=== PATIENT | male | born 1940 | race Caucasian/White ===

== ENCOUNTER 2017-03-21 07:02 | Inpatient (IN) ==
--- NOTE | 2017-03-21 07:27 | Emergency Department Note ---
Disposition Clinical Impression: Dizziness, Frequent falls Disposition: Admitted As Inpatient Condition: Good Time of Disposition: 12:53 General Adult HPI - General Chief complaint: ED Neuro Symptoms/Deficit Stated complaint: R shoulder/bilat Leg Pain/Dizzy Time Seen by Provider: 03/21/17 07:13 Source: patient Limitations: no limitations Nursing Notes Reviewed: Yes Vital Signs Reviewed: Yes - History of Present Illness HPI Narrative: One-month history of increasing falls. He states after he stopped chemotherapy 1 month ago he has now been falling more quickly. For falls within the past week. Denies any syncope. States they are all mechanical he gets pains in his lower legs and then falls the floor. Pain Scale: 7 - Related Data Home Medications Medication Instructions Recorded Confirmed Multivitamin [Multi-Day Vitamins] 1 tab PO DAILY 10/22/16 03/21/17 Acetaminophen [Tylenol] 1,000 mg PO Q6HR PRN 02/23/17 03/21/17 Aspirin [Ecotrin] 325 mg PO DAILY PRN 02/23/17 03/21/17 Cholecalciferol (D-3) [Vitamin D] 5,000 unit PO DAILY 02/23/17 03/21/17 Lisinopril [Zestril] 20 mg PO DAILY 02/23/17 03/21/17 Naproxen Sodium [Aleve] 220 mg PO BID PRN 02/23/17 03/21/17 [place]-3/Dha/Epa/Fish Oil [Fish Oil 1,000 mg PO DAILY 02/23/17 03/21/17 1,000 mg Softgel] Allergies Allergy/AdvReac Type Severity Reaction Status Date / Time hydrochlorothiazide Allergy Swelling Verified 03/21/17 07:11 of Lip/Tongue/Throat All systems ED: reviewed and negative except as stated. Constitutional: Denies: fever, chills Cardiovascular: Denies: chest pain, palpitations, syncope Respiratory: Denies: cough, dyspnea Gastrointestinal: Denies: abdominal pain, nausea, vomiting, diarrhea Genitourinary: Denies: urgency, dysuria, frequency Musculoskeletal: Reports: other (Shooting pain down both lower extremities. Pain to the right shoulder with decreased range of motion.). Denies: back pain Integumentary: Denies: rash Neurological: Denies: headache, weakness Past Medical History - Past Medical History Medical history: Reports: cancer, hypertension Surgical history: Reports: herniorrhaphy, other Psychiatric history: Reports: no psych history - Social History Smoking Status: Current every day smoker Alcohol use: Reports: rarely Drug use: Reports: none Physical Exam - General Limitations: no limitations General appearance: alert, in no apparent distress - Head Head exam: atraumatic, normocephalic - Eye Eye exam: Present: normal appearance, PERRL, EOMI, scleral icterus - ENT ENT exam: normal exam, normal oropharynx, mucous membranes moist - Neck Neck exam: Present: normal inspection, full ROM - Chest Chest inspection: Present: normal inspection, symmetric chest wall rise - Respiratory Respiratory exam: Present: normal lung sounds bilaterally. Absent: respiratory distress - Cardiovascular Cardiovascular exam: Present: regular rate, normal rhythm, normal heart sounds - Abdominal Exam Abdominal exam: Present: soft, Non-Tender, normal bowel sounds - Extremities Exam Extremities exam: Present: full ROM (Passively in all extremities. Decreased extension of right shoulder on active extension.), normal capillary refill. Absent: tenderness, pedal edema - Back Exam Back exam: Present: normal inspection, full ROM. Absent: tenderness, paraspinal tenderness - Neurological Exam Neurological exam: Present: alert, oriented X3, other (Patient has an ataxic gait.) - Psychiatric Psychiatric exam: Present: normal affect, normal mood - Skin Skin exam: Present: warm, dry, intact, normal color Course Course Narrative: Well appearing male patient presenting to the emergency department with a 3 week history of increasing falls. 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 He states ever since the cessation of the radiation chemotherapy he has been having an increasing falls. He states that he has had 4 falls in the past week. He states he has not had any syncope or struck his head. He is not on anticoagulation. Patient has an ataxic gait. He becomes dizzy with changes of positions. He also becomes dizzy with movement of his eyes during my exam. He has decreased range of motion actively in his right shoulder. However passively he can move it throughout the full range of motion. He has strong pulses in all 4 extremities. He is mentating appropriately. He is not in distress. CT of patient's head was normal. His creatinine is increased and we are unable to get a CTA of patient's carotids. He does have dizziness whenever his physicians are changed. He also gets dizzy whenever he is attempting to walk. He also gets dizzy with extraocular motions. - Reevaluation(s) Reevaluation #1: Spoke with oncology they also feel that the Pt should be admitted and an MRI be preformed. We will admit patient for new onset ataxic gait as well as dizziness and frequent falls. I am concerned for possible metastasis of his cancer versus cerebellar issues possibly due to radiation. Time: 10:48 - Consultations Consultation #1: Dr Davis except the patient in stable condition. Time: 11:18 Vital Signs Temperature 97.6 F 03/21/17 07:04 Pulse Rate 76 03/21/17 07:04 Respiratory Rate 16 03/21/17 07:04 Blood Pressure 190/100 03/21/17 07:04 O2 Sat by Pulse Oximetry 96 03/21/17 07:04 Temperature 0 F L 03/21/17 12:10 Pulse Rate 72 03/21/17 07:43 Respiratory Rate 18 03/21/17 12:10 Blood Pressure 173/98 03/21/17 12:10 O2 Sat by Pulse Oximetry 96 03/21/17 07:04 Oxygen Delivery Oxygen Delivery Room Air Medical Decision Making - Medical Records Medical records reviewed: Yes I reviewed the patient's medical records. - Lab Data Lab results reviewed: Yes I reviewed the patient's lab results. Result diagrams: 03/21/17 08:29 03/21/17 08:29 Lab Results 03/21/17 03/21/17 Range/Units 08:29 08:29 WBC 7.4 (4.3-11.1) K/mcL RBC 4.40 (4.19-5.50) M/mcL Hgb 13.4 (12.9-16.9) g/dL Hct 39.9 (37.5-50.1) % MCV 90.7 (83.0-100.0) fL MCH 30.5 (28.0-33.3) pg MCHC 33.6 (31.6-35.5) g/dL RDW 12.8 (11.5-14.5) % Plt Count 298 (140-400) K/mcL MPV 8.6 L (9.4-12.4) fL Immature Gran % 0.4 (0-4) % Seg Neutrophils % 66.5 % Lymphocytes % 15.8 % Monocytes % 10.1 % Eosinophils % 6.8 % Basophils % 0.4 % Neutrophils # 4.9 (1.6-8.9) K/mcL Lymphocytes # 1.2 (0.6-4.6) K/mcL Monocytes # 0.8 (0.0-1.3) K/mcL Eosinophils # 0.5 (0.0-0.6) K/mcL Basophils # 0.0 (0.0-0.2) K/mcL Sodium 133 L (136-145) mEq/L Potassium 4.0 (3.5-4.5) mEq/L Chloride 96 L (98-109) mEq/L Carbon Dioxide 25 (19-29) mEq/L BUN 28 H (8-26) mg/dL Creatinine 1.91 H (0.72-1.25) mg/dL Est GFR ( Amer) 42 L (> 60) Est GFR (Non-Af Amer) 35 L (> 60) BUN/Creatinine Ratio 15 (6-26) Glucose 81 (70-99) mg/dL Calculated Osmolality 281 (280-300) Calcium 9.4 (8.6-10.8) mg/dL - Radiology Data Radiology results reviewed: Yes I reviewed the patient's radiology results. Chest X-Ray 03/21/17 07:45 IMPRESSION: No acute pulmonary process. D/ / 03/21/2017 08:14:35 Diamante Murray MD / serge Interpreting Provider: Diamante Murray MD Head CT 03/21/17 07:45 IMPRESSION: 1. No acute intracranial abnormality. 2. Periventricular and subcortical white matter hypodensities are commonly due to chronic small vessel ischemic disease. D/ / Edward Alexander MD / Edward Alexander MD Interpreting Provider: Edward Alexander MD Lumbar Spine X-Ray 03/21/17 07:45 IMPRESSION: Dextroscoliosis. Multilevel degenerative changes of the lumbar spine. No acute finding by plain film imaging. D/ / 03/21/2017 08:26:21 Diamante Murray MD / kennedy Interpreting Provider: Diamante Murray MD Shoulder X-Ray 03/21/17 07:45 IMPRESSION: Moderate AC joint osteoarthritis. No evidence of acute fracture or dislocation. D/ / 03/21/2017 08:12:45 Nestor Fitzpatrick MD / serge Interpreting Provider: Nestor Fitzpatrick MD
--- NOTE | 2017-03-21 07:43 | Emergency Department Note ---
Disposition Clinical Impression: Dizziness, Frequent falls, Ataxia Disposition: Admitted As Inpatient Condition: Fair General Adult HPI - General Chief complaint: ED General Medical Stated complaint: R shoulder/bilat Leg Pain/Dizzy Time Seen by Provider: 03/21/17 07:13 Source: patient Limitations: no limitations Nursing Notes Reviewed: Yes Vital Signs Reviewed: Yes - History of Present Illness Pain Scale: 7 - Related Data Home Medications Medication Instructions Recorded Confirmed Multivitamin [Multi-Day Vitamins] 1 tab PO DAILY 10/22/16 03/21/17 Acetaminophen [Tylenol] 1,000 mg PO Q6HR PRN 02/23/17 03/21/17 Aspirin [Ecotrin] 325 mg PO DAILY PRN 02/23/17 03/21/17 Cholecalciferol (D-3) [Vitamin D] 5,000 unit PO DAILY 02/23/17 03/21/17 Lisinopril [Zestril] 20 mg PO DAILY 02/23/17 03/21/17 Naproxen Sodium [Aleve] 220 mg PO BID PRN 02/23/17 03/21/17 [place]-3/Dha/Epa/Fish Oil [Fish Oil 1,000 mg PO DAILY 02/23/17 03/21/17 1,000 mg Softgel] Allergies Allergy/AdvReac Type Severity Reaction Status Date / Time hydrochlorothiazide Allergy Swelling Verified 03/21/17 07:11 of Lip/Tongue/Throat Past Medical History - Past Medical History Medical history: Reports: cancer, hypertension Surgical history: Reports: herniorrhaphy, other Psychiatric history: Reports: no psych history - Social History Smoking Status: Current every day smoker Alcohol use: Reports: rarely Drug use: Reports: none Physical Exam - General Limitations: no limitations General appearance: alert Course Vital Signs Temperature 97.6 F 03/21/17 07:04 Pulse Rate 76 03/21/17 07:04 Respiratory Rate 16 03/21/17 07:04 Blood Pressure 190/100 03/21/17 07:04 O2 Sat by Pulse Oximetry 96 03/21/17 07:04 Temperature 0 F L 03/21/17 12:10 Pulse Rate 72 03/21/17 07:43 Respiratory Rate 18 03/21/17 12:10 Blood Pressure 173/98 03/21/17 12:10 O2 Sat by Pulse Oximetry 96 03/21/17 07:04 Oxygen Delivery Oxygen Delivery Room Air Medical Decision Making - MDM Narrative Medical decision making narrative: I examined this patient and my medical decision-making was reviewed with the FAN INSTALLER/PA/Advanced Practice Nurse/Resident Physician. I agree with the documented findings, disposition and treatment plan as described except to the extent set forth below. Patient seen on arrival with Dr. Mejia and myself, agree with her evaluation and management plan, I supervised the care of the patient's stay. 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 He is having episodes where he gets up feels dizzy and has falls. He denies striking his head. He is complaining of some sciatic type symptoms down his legs. No change in bowel or bladder habits. On ambulation here he is able to get up and then when he turns he feels dizzy and becomes ataxic. Going to do a workup on him CT has had no snack lab work and then reassess. He may need admission. He follows with the cancer center here. 0742 hrs.: Patient had an EKG performed shows sinus rhythm, rate is 73, QRS is 91, QTC is 419, has Q waves in inferior leads with flipped complexes in leads 3 and aVF but no signs of acute ischemia compared this with an EKG that was done back in 2013 and this changes in the inferior leads were not there. Patient denies any chest pain. 0823 hrs. x-rays are coming back. Chest X-Ray 03/21/17 07:45 IMPRESSION: No acute pulmonary process. D/ / 03/21/2017 08:14:35 Diamante Murray MD / serge Interpreting Provider: Diamante Murray MD Lumbar Spine X-Ray 03/21/17 07:45 IMPRESSION: Dextroscoliosis. Multilevel degenerative changes lumbar spine. No acute finding by plain film imaging. D/ / Diamante Murray MD / Diamante Murray MD Interpreting Provider: Diamante Murray MD Shoulder X-Ray 03/21/17 07:45 IMPRESSION: Moderate AC joint osteoarthritis. No evidence of acute fracture or dislocation. D/ / 03/21/2017 08:12:45 Nestor Fitzpatrick MD / serge Interpreting Provider: Nestor Fitzpatrick MD 0848 hrs: Chest X-Ray 03/21/17 07:45 IMPRESSION: No acute pulmonary process. D/ / 03/21/2017 08:14:35 Diamante Murray MD / serge Interpreting Provider: Diamante Murray MD Lumbar Spine X-Ray 03/21/17 07:45 IMPRESSION: Dextroscoliosis. Multilevel degenerative changes of the lumbar spine. No acute finding by plain film imaging. D/ / 03/21/2017 08:26:21 Diamante Murray MD / [facility] Interpreting Provider: Diamante Murray MD Shoulder X-Ray 03/21/17 07:45 IMPRESSION: Moderate AC joint osteoarthritis. No evidence of acute fracture or dislocation. D/ / 03/21/2017 08:12:45 Nestor Fitzpatrick MD / serge Interpreting Provider: Nestor Fitzpatrick MD 0927 hrs.: Due to elevated creatinine were on a hold off on contrast. He may need carotids imaged in the hospital which could be done with ultrasound also we will ask CT just to do the CT of the head without contrast this time period and then working at Dr. the patient about admission. Family is in agreement with this plan. Chest X-Ray 03/21/17 07:45 IMPRESSION: No acute pulmonary process. D/ / 03/21/2017 08:14:35 Diamante Murray MD / serge Interpreting Provider: Diamante Murray MD Head CT 03/21/17 07:45 IMPRESSION: 1. No acute intracranial abnormality. 2. Periventricular and subcortical white matter hypodensities are commonly due to chronic small vessel ischemic disease. D/ / Edward Alexander MD / Edward Alexander MD Interpreting Provider: Edward Alexander MD Lumbar Spine X-Ray 03/21/17 07:45 IMPRESSION: Dextroscoliosis. Multilevel degenerative changes of the lumbar spine. No acute finding by plain film imaging. D/ / 03/21/2017 08:26:21 Diamante Murray MD / [facility] Interpreting Provider: Diamante Murray MD Shoulder X-Ray 03/21/17 07:45 IMPRESSION: Moderate AC joint osteoarthritis. No evidence of acute fracture or dislocation. D/ / 03/21/2017 08:12:45 Nestor Fitzpatrick MD / serge Interpreting Provider: Nestor Fitzpatrick MD - Lab Data Result diagrams: 03/21/17 08:29 03/21/17 08:29 Lab Results 03/21/17 03/21/17 Range/Units 08:29 08:29 WBC 7.4 (4.3-11.1) K/mcL RBC 4.40 (4.19-5.50) M/mcL Hgb 13.4 (12.9-16.9) g/dL Hct 39.9 (37.5-50.1) % MCV 90.7 (83.0-100.0) fL MCH 30.5 (28.0-33.3) pg MCHC 33.6 (31.6-35.5) g/dL RDW 12.8 (11.5-14.5) % Plt Count 298 (140-400) K/mcL MPV 8.6 L (9.4-12.4) fL Immature Gran % 0.4 (0-4) % Seg Neutrophils % 66.5 % Lymphocytes % 15.8 % Monocytes % 10.1 % Eosinophils % 6.8 % Basophils % 0.4 % Neutrophils # 4.9 (1.6-8.9) K/mcL Lymphocytes # 1.2 (0.6-4.6) K/mcL Monocytes # 0.8 (0.0-1.3) K/mcL Eosinophils # 0.5 (0.0-0.6) K/mcL Basophils # 0.0 (0.0-0.2) K/mcL Sodium 133 L (136-145) mEq/L Potassium 4.0 (3.5-4.5) mEq/L Chloride 96 L (98-109) mEq/L Carbon Dioxide 25 (19-29) mEq/L BUN 28 H (8-26) mg/dL Creatinine 1.91 H (0.72-1.25) mg/dL Est GFR ( Amer) 42 L (> 60) Est GFR (Non-Af Amer) 35 L (> 60) BUN/Creatinine Ratio 15 (6-26) Glucose 81 (70-99) mg/dL Calculated Osmolality 281 (280-300) Calcium 9.4 (8.6-10.8) mg/dL
[2017-03-21 08:34] LABS: Basophils % 0.4 %; Eosinophils # 0.5 K/mcL (0.0-0.6); Eosinophils % 6.8 %; Hematocrit 39.9 % (37.5-50.1); Hemoglobin 13.4 g/dL (12.9-16.9); Immature Granulocytes % 0.4 % (0-4); Lymphocytes # 1.2 K/mcL (0.6-4.6); Lymphocytes % 15.8 %; Mean Corpuscular HGB Conc 33.6 g/dL (31.6-35.5); Mean Corpuscular Hemoglobin 30.5 pg (28.0-33.3); Mean Corpuscular Volume 90.7 fL (83.0-100.0); Mean Platelet Volume 8.6 fL (9.4-12.4); Monocytes # 0.8 K/mcL (0.0-1.3); Monocytes % 10.1 %; Neutrophils # 4.9 K/mcL (1.6-8.9); Platelet Count 298 K/mcL (140-400); Red Cell Distribution Width 12.8 % (11.5-14.5); Segmented Neutrophils % 66.5 %
[2017-03-21 08:45] LABS: Calcium 9.4 mg/dL (8.6-10.8)
[2017-03-21] MEDS ORDERED: 0.9 % Sodium Chloride 500 ML IVC ONE (08:55)
[2017-03-21] MEDS ORDERED: Naloxone 0.4 MG/ML INJ IVP PRN (12:33)
[2017-03-21] MEDS ORDERED: Acetaminophen 325 MG TABLET PO PRN (12:33)
--- NOTE | 2017-03-21 13:16 | Internal Med History&Physical ---
<Adali Aguirre M - Last Filed: 03/21/17 15:26> Date of Encounter: 03/21/17 Time of Encounter: 13:10 Assessment and Plan (1) Ataxia Current visit: Yes Status: Acute Patient reports multiple falls, increasing in frequency. He reports shooting pain down his legs originating in his lower back, which sound like source of his falls. Xray of lumbar spine shows multi-level degenerative changes of lumbar spine, no acute findings. Sciatica may be cause of pain and falls. Will consult oncology to see if they would like to get MRI of lumbar spine in addition to MRI of brain. Consult PT/OT (2) Frequent falls Current visit: Yes Status: Acute (3) Dizziness Current visit: Yes Status: Acute Patient reports dizziness which accompanies shooting pain down his legs. Denies light-headedness or loss of consciousness. Describes the sensation as feeling "off balance". Differentials include vertigo, metastasis. Will plan for MRI with contrast after hydration. Consult to oncology, PT and OT (4) Acute kidney injury superimposed on chronic kidney disease Current visit: Yes Status: Acute Patient has CKD with basline Creatinine about 1.3-1.5. Today's creatinine of 1.91. Will hydrate with fluids overnight. Hold lisinopril and naproxen. Avoid NSAIDS. Recheck chemistry in the morning, prior to proceeding with MRI. (5) Hypertension Current visit: Yes Status: Acute Patient's blood pressures have been running high since arrival, 170s/90-100s. Hold lisinopril for MARIO. Amlodipine 10mg daily. Hydralazine 10mg Q6hr PRN for SBP > 160 or DBP > 100. (6) Smoker Current visit: Yes Status: Acute Patient reports he smokes 1.5 PPD. Discussed smoking consequences and smoking cessation, patient not interested in quitting. Smoking cessation education ordered Nicotine patch offered. (7) Head and neck cancer Current visit: No Status: Acute Patient recently completed chemo/radiation in December for tongue cancer. Concern that his symptoms may be caused by tumor metastasis. Will consult oncology and likely plan for MRI tomorrow. (8) DVT prophylaxis Current visit: Yes Status: Acute Ambulate with assistance anti-embolic stockings heparin 5,000u SQ TID Internal Medicine - H&P: HPI Chief complaint: falls Admitted From: Emergency Dept Plans for Post Hospital Care: Home History of present illness: Mr. Loya is a 76 year old male with hypertension, hyperlipidemia, colon cancer status post chemoradiation, who presented to the emergency department today with complaints of right shoulder pain, bilateral leg pain, and falls. Patient reports this is been going on since completion of his chemotherapy and radiation in December. He reports he has shooting pain down his legs starting in his low back, worse on his left leg, when this happens he also experiences dizziness and he ends up falling. He is unable to articulate whether he experiences the dizziness without the pain, he denies losing consciousness, or feeling lightheaded. He reports he feels off balance. Additionally he has right neck and right shoulder pain that he initially related to his radiation treatments. He is unable to lift his arm above a 45 degree angle. He can passively lift it with his other arm. He reports occasional headaches on and off, chronic cough. He denies any chest pain, palpitations, shortness of breath , nausea, vomiting, abdominal pain or diarrhea. He denies numbness or tingling. 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 X-ray of the lumbar spine which showed dextroscoliosis and multilevel degenerative changes of the lumbar spine. Chest x-ray showed no acute cardiopulmonary process. Head CT showed no acute intracranial abnormality , periventricular and subcortical white matter hypodensities, likely due to chronic small vessel ischemic disease. Labs showed acute kidney injury on top of chronic kidney disease with creatinine of 1.91 up from baseline of 1.39. On exam, patient is alert and oriented in no acute distress. Heart has regular rate and rhythm, lungs are clear bilaterally to auscultation. Past Med Surg Social Fam HX - Past Medical History Medical history: cancer (tongue cancer s/p chemo/radiation), hyperlipidemia, hypertension Psychiatric history: no psych history - Past Surgical History Surgical History: herniorrhaphy, other (traumatic amputation of right toes) - Social History Smoking Status: Current every day smoker Packs per day: 1 1/2 Alcohol use: rarely Drug use: none - Family History Mother Living Status: Age at : 62 Cause of : [place] Hx Family Cardiac Disorders: Yes Father Living Status: Age at : 57 Internal Medicine - H&P: Meds Multivitamin [Multi-Day Vitamins] 1 tab PO DAILY 10/22/16 [History] Acetaminophen [Tylenol] 1,000 mg PO Q6HR PRN 02/23/17 [History] Aspirin [Ecotrin] 325 mg PO DAILY PRN 02/23/17 [History] Cholecalciferol (D-3) [Vitamin D] 5,000 unit PO DAILY 02/23/17 [History] Lisinopril [Zestril] 20 mg PO DAILY 02/23/17 [History] Naproxen Sodium [Aleve] 220 mg PO BID PRN 02/23/17 [History] [place]-3/Dha/Epa/Fish Oil [Fish Oil 1,000 mg Softgel] 1,000 mg PO DAILY 02/23/17 [History] Allergies hydrochlorothiazide Allergy (Verified 03/21/17 07:11) Swelling of Lip/Tongue/Throat All Systems PM: A 10-system review of systems was performed and is negative for pertinent findings except as documented above in the HPI. - Constitutional Constitutional: falls, no chills, no fever(s), no night sweats - EENT Eyes: no change in vision, no discharge, no pain, no photophobia Ears: no ear discharge, no ear pain, no tinnitus Nose, mouth and throat: no dysphagia, no nasal discharge, no neck pain, no sore throat - Cardiovascular Cardiovascular ROS IM: no chest pain, no diaphoresis, no dyspnea, no lightheadedness, no palpitations, no syncope - Respiratory Respiratory: cough, no dyspnea, no wheezing, no excessive phlegm production - Gastrointestinal Gastrointestinal: no abdominal pain, no diarrhea, no hematemesis, no hematochezia, no melena, no nausea, no vomiting - Musculoskeletal Musculoskeletal ROS IM: back pain, limited range of motion (right shoulder), neck pain, no numbness, no tingling - Integumentary Integumentary IM: no rash, no unusual bruising - Neurological Neurological ROS: disequilibrium, dizziness, frequent falls, headache(s), no confusion, no convulsions, no focal weakness, no numbness, no tingling, no tremor(s) - Hematologic/Lymphatic Hematologic/Lymphatic: no easy bruising - Constitutional Vitals: Temp Pulse Resp BP Pulse Ox 0 F L 72 18 173/98 96 03/21/17 12:10 03/21/17 07:43 03/21/17 12:10 03/21/17 12:10 03/21/17 07:04 General appearance: Present: A&O X 3, pleasant, no acute distress - Head Head exam: Present: atraumatic, normocephalic - Eye Eye exam: Present: PERRL, conjuntiva pink, sclera anicteric Pupils: Present: PERRL - Neck Neck exam general surgery: Present: supple, trachea midline. Absent: lymphadenopathy - Respiratory Respiratory exam: Present: CTAB. Absent: accessory muscle use, rales, rhonchi, wheezes - Cardiovascular Cardiovascular exam: Present: RRR, +S1, +S2. Absent: diastolic murmur, gallop, rubs, systolic murmur - GI/Abdominal GI/Abdominal exam: Present: normal bowel sounds, soft, no peritoneal signs. Absent: distended, tenderness - Extremities Exam Extremities exam: Present: warm, radial pulses palpable and symetrical. Absent : calf tenderness, cyanotic, pedal edema - Neurological Exam Neurological exam: Present: CN II-XII intact, oriented X3, no focal deficits. Absent: pronater drift, facial droop, speech deficit - Expanded Neurological Exam Speech: Present: fluid speech Cranial Nerves: EOM's intact PM: Normal, nystagmus PM: Normal, tongue deviation PM: Normal Ataxia: Present: yes Cerebellar function: finger to nose: Normal Upper motor neuron: pronator drift: Normal Neuro motor strength exam: LUE: 5, RUE: 4, LLE: 5, RLE: 5 - Skin Skin exam: Present: dry, intact Internal Med - H&P Results - Labs CBC & Chem 7: 03/21/17 08:29 03/21/17 08:29 Labs: All Lab Results (24 Hours) 03/21/17 03/21/17 Range/Units 08:29 08:29 WBC 7.4 (4.3-11.1) K/mcL RBC 4.40 (4.19-5.50) M/mcL Hgb 13.4 (12.9-16.9) g/dL Hct 39.9 (37.5-50.1) % MCV 90.7 (83.0-100.0) fL MCH 30.5 (28.0-33.3) pg MCHC 33.6 (31.6-35.5) g/dL RDW 12.8 (11.5-14.5) % Plt Count 298 (140-400) K/mcL MPV 8.6 L (9.4-12.4) fL Immature Gran % 0.4 (0-4) % Seg Neutrophils % 66.5 % Lymphocytes % 15.8 % Monocytes % 10.1 % Eosinophils % 6.8 % Basophils % 0.4 % Neutrophils # 4.9 (1.6-8.9) K/mcL Lymphocytes # 1.2 (0.6-4.6) K/mcL Monocytes # 0.8 (0.0-1.3) K/mcL Eosinophils # 0.5 (0.0-0.6) K/mcL Basophils # 0.0 (0.0-0.2) K/mcL Sodium 133 L (136-145) mEq/L Potassium 4.0 (3.5-4.5) mEq/L Chloride 96 L (98-109) mEq/L Carbon Dioxide 25 (19-29) mEq/L BUN 28 H (8-26) mg/dL Creatinine 1.91 H (0.72-1.25) mg/dL Est GFR ( Amer) 42 L (> 60) Est GFR (Non-Af Amer) 35 L (> 60) BUN/Creatinine Ratio 15 (6-26) Glucose 81 (70-99) mg/dL Calculated Osmolality 281 (280-300) Calcium 9.4 (8.6-10.8) mg/dL - Diagnostic Studies Chest x-ray Additional comments: Chest X-Ray 03/21/17 07:45 IMPRESSION: No acute pulmonary process. D/ / 03/21/2017 08:14:35 Diamante Murray MD / serge Interpreting Provider: Diamante Murray MD CT scan - head Additional comments: Head CT 03/21/17 07:45 IMPRESSION: 1. No acute intracranial abnormality. 2. Periventricular and subcortical white matter hypodensities are commonly due to chronic small vessel ischemic disease. D/ / Edward Alexander MD / Edward Alexander MD Interpreting Provider: Edward Alexander MD Other Images Additional comments: Lumbar Spine X-Ray 03/21/17 07:45 IMPRESSION: Dextroscoliosis. Multilevel degenerative changes of the lumbar spine. No acute finding by plain film imaging. D/ / 03/21/2017 08:26:21 Diamante Murray MD / kennedy Interpreting Provider: Diamante Murray MD Shoulder X-Ray 03/21/17 07:45 IMPRESSION: Moderate AC joint osteoarthritis. No evidence of acute fracture or dislocation. D/ / 03/21/2017 08:12:45 Nestor Fitzpatrick MD / serge Interpreting Provider: Nestor Fitzpatrick MD <Lacy Mendez - Last Filed: 03/21/17 17:12> Date of Encounter: 03/21/17 Internal Medicine - H&P: HPI History of present illness: Mr. Loya is a 76 year old male All Systems PM: A 10-system review of systems was performed and is negative for pertinent findings except as documented above in the HPI. - Constitutional Vitals: Temp Pulse Resp BP Pulse Ox 98.1 F 76 16 188/92 92 03/21/17 14:29 03/21/17 16:35 03/21/17 14:29 03/21/17 16:35 03/21/17 14:29 Internal Med - H&P Results - Labs CBC & Chem 7: 03/21/17 08:29 03/21/17 08:29 - Attending Attestation I examined this patient and my medical decision-making was reviewed with the Advanced Practice Nurse. I agree with the documented findings, disposition and treatment plan as described .
[2017-03-21] MEDS: Aspirin Enteric Coated 325 MG Tablet PO SCH (13:42)
[2017-03-21] MEDS: 0.9 % Sodium Chloride 1,000 ML IVC SCH ×2 (13:42→23:53)
[2017-03-21] MEDS: Nicotine 21 MG PATCH.TD24 TD SCH (13:46)
--- NOTE | 2017-03-21 15:26 | Oncology Inp Consult Note ---
Date of Encounter: 03/21/17 Time of Encounter: 15:00 Assessment and Plan (1) Dizziness Status: Acute Assessment and plan: ?? 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 Check orthostatic BP. If negative, MRI of the brain with and without contrast to r/o metastatic disease once kidney functions improves. (2) Low back pain Status: Acute Assessment and plan: Please obtain MRI of the Lumbar Spine when kidney function improves, for further evaluation. Qualifiers: Chronicity: acute Back pain laterality: bilateral Qualified Code(s): M54.5 - Low back pain (3) Cancer of base of tongue Status: Resolved Assessment and plan: s/p treatment with concurrent chemoradiation utilizing cetuximab. PET scan will be obtained as an outpatient to assess response to treatment. - Data of Consult Patient: known to practice within the last 3 years Consult date: 03/21/17 Requesting Physician: Naveen Tompkins MD Primary Care Provider: PCP [place] - Consult Narrative Reason for consult: Dizziness/Base of tongue cancer History of present illness: Mr. 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 Mr. 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 He was treated with concurrent radiation and weekly cetuximab from 11/03/16 - 12/15/16. Concurrent radiation was from 11/10/16-12/29/15. Following his treatment he was was noted to have orthostatic hypotension and so his blood pressure medication (amlodipine) was discontinued. Patient started experiencing back pain with shooting pain down his left legs about a month ago. He also reports dizziness which has led to frequent falls, right shoulder pain and dizziness mainly when he stands up. He denies odynophagia and dysphagia In emergency room a CT scan without contrast revealed no acute intracranial abnormality. Labs showed acute renal failure. Past Med Surg Social Fam HX - Past Medical History Medical history: cancer (tongue cancer s/p chemo/radiation), hyperlipidemia, hypertension Psychiatric history: no psych history - Past Surgical History Surgical History: herniorrhaphy, other (traumatic amputation of right toes) - Social History Smoking Status: Current every day smoker Packs per day: 1 /2 Alcohol use: rarely Drug use: none - Family History Mother Living Status: Age at : 62 Cause of : Heart attack Hx Family Cardiac Disorders: Yes Hx Family Respiratory Disorders: No Hx Family Cancer: Yes (Lung Cancer) Hx Family GI Disorders: No Hx Family Genitourinary Disorders: No Hx Family Endocrine Disorder: No (Diabetes) Hx Family Musculoskeletal Disorders: No Hx Family Neuromuscular Disorders: No Hx Family Neurologic Disorders: No Hx Family HEENT Disorders: No Hx Family Autoimmune Disorders: No Hx Family Reproductive Disorders: No Hx Family Psychosocial Disorders: No Hx Family Medical Disorders: No Father Living Status: Age at : 57 Medications and Allergies Multivitamin [Multi-Day Vitamins] 1 tab PO DAILY 10/22/16 [History] Acetaminophen [Tylenol] 1,000 mg PO Q6HR PRN 02/23/17 [History] Aspirin [Ecotrin] 325 mg PO DAILY PRN 02/23/17 [History] Cholecalciferol (D-3) [Vitamin D] 5,000 unit PO DAILY 02/23/17 [History] Lisinopril [Zestril] 20 mg PO DAILY 02/23/17 [History] Naproxen Sodium [Aleve] 220 mg PO BID PRN 02/23/17 [History] [place]-3/Dha/Epa/Fish Oil [Fish Oil 1,000 mg Softgel] 1,000 mg PO DAILY 02/23/17 [History] Allergies hydrochlorothiazide Allergy (Verified 03/21/17 07:11) Swelling of Lip/Tongue/Throat All systems: reviewed and no additional remarkable complaints except as stated Oncology - Exam - Constitutional Vitals: Temp Pulse Resp BP Pulse Ox 98.1 F 77 16 172/86 92 03/21/17 14:29 03/21/17 14:29 03/21/17 14:29 03/21/17 14:29 03/21/17 14:29 General appearance: no acute distress, no obese, no severe distress - Head Head exam: Present: normal inspection, normocephalic - Eye Eye exam: Present: EOMI, normal appearance - Neck Neck exam: Present: normal inspection - Respiratory Respiratory exam: Present: CTAB - Cardiovascular Cardiovascular exam: Present: RRR, +S1, +S2 - GI/Abdominal GI/Abdominal exam: Present: soft. Absent: organomegaly, pulsatile mass, rebound , rigid, tenderness - Extremities Exam Extremities exam: Present: normal inspection. Absent: pedal edema Consult Discharge Plan - Plan Referrals: [facility] [Outside] - 03/31/17 12:30 pm
[2017-03-21] MEDS: *HR* Heparin 5,000 UNIT/ML VIAL SQ SCH ×2 (18:19→21:31)
[2017-03-21] MEDS: traMADol 50 MG TABLET PO PRN (18:19)
[2017-03-21] MEDS: amLODIPine 5 MG TABLET PO SCH (18:20)
--- NOTE | 2017-03-21 19:39 | Electrocardiograph Report ---
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
[2017-03-22 04:26] LABS: Basophils % 0.4 %; Eosinophils # 0.5 K/mcL (0.0-0.6); Eosinophils % 6.5 %; Hematocrit 37.8 % (37.5-50.1); Immature Granulocytes % 0.8 % (0-4); Immature Platelets 2.2 % (1.1-6.1); Lymphocytes # 1.3 K/mcL (0.6-4.6); Lymphocytes % 17.5 %; Mean Corpuscular HGB Conc 34.4 g/dL (31.6-35.5); Mean Corpuscular Hemoglobin 31.1 pg (28.0-33.3); Mean Corpuscular Volume 90.4 fL (83.0-100.0); Mean Platelet Volume 8.8 fL (9.4-12.4); Monocytes # 0.6 K/mcL (0.0-1.3); Monocytes % 8.2 %; Neutrophils # 4.8 K/mcL (1.6-8.9); Platelet Count 328 K/mcL (140-400); Red Blood Count 4.18 M/mcL (4.19-5.50); Red Cell Distribution Width 13.1 % (11.5-14.5); Segmented Neutrophils % 66.6 %
[2017-03-22 04:43] LABS: Potassium 4.1 mEq/L (3.5-4.5)
[2017-03-22] MEDS: *HR* Heparin 5,000 UNIT/ML VIAL SQ SCH ×3 (05:21→21:23)
[2017-03-22] MEDS: traMADol 50 MG TABLET PO PRN (07:44)
[2017-03-22] MEDS: Aspirin Enteric Coated 325 MG Tablet PO SCH (09:12)
[2017-03-22] MEDS: amLODIPine 5 MG TABLET PO SCH (09:12)
[2017-03-22] MEDS: Nicotine 21 MG PATCH.TD24 TD SCH (09:13)
[2017-03-22] MEDS: 0.9 % Sodium Chloride 1,000 ML IVC SCH ×2 (10:08→19:42)
[2017-03-22] MEDS ORDERED: Ondansetron 4 MG/2 ML VIAL IVP PRN (12:37)
--- NOTE | 2017-03-22 13:18 | Oncology Inp Progress Note ---
Date of Encounter: 03/22/17 Time of Encounter: 16:00 (1) Dizziness Current Visit: Yes Status: Acute Assessment and plan: Awaiting MRI of the brain with and without contrast to r/o metastatic disease once kidney functions improves. (2) Low back pain Current Visit: Yes Status: Acute Assessment and plan: Awaiting MRI of the Lumbar Spine when kidney function improves, for further evaluation. Qualifiers: Chronicity: acute Back pain laterality: bilateral Qualified Code(s): M54.5 - Low back pain (3) Cancer of base of tongue Current Visit: No Status: Resolved Assessment and plan: s/p treatment with concurrent chemoradiation utilizing cetuximab. PET scan will be obtained as an outpatient to assess response to treatment. Oncology: Subj Interval history: No acute event overnight. - Constitutional Vitals: Vital Signs Temp Pulse Pulse Pulse Pulse Resp BP 03/22/17 11:06 98.4 F 66 16 148/77 03/22/17 08:47 97.5 F L 87 18 177/94 03/22/17 07:26 97.4 F L 76 18 192/98 03/22/17 04:50 97.9 F 81 16 171/85 03/21/17 23:32 98.4 F 77 14 141/69 03/21/17 19:58 98.0 F 71 16 152/71 03/21/17 16:35 76 82 91 03/21/17 14:29 98.1 F 77 16 172/86 BP BP BP Pulse Ox 03/22/17 11:06 97 03/22/17 08:47 94 03/22/17 07:26 95 03/22/17 04:50 91 03/21/17 23:32 92 03/21/17 19:58 94 03/21/17 16:35 188/92 169/94 167/94 03/21/17 14:29 92 Intake and Output 03/21/17 03/22/17 03/22/17 23:59 07:59 15:59 Intake Total 1120 / 1120 784 / 784 706 / 706 Output Total 250 / 250 1300 / 1300 300 / 300 Balance 870 / 870 -516 / -516 406 / 406 Intake: IV Fluids 1000 / 1000 784 / 784 216 / 216 0.9 % Sodium Chloride 1, 1000 / 1000 784 / 784 216 / 216 000 ML @ 100 mls/hr IVC . Q10H MURALI Rx#:[id number] Oral 120 / 120 0 / 0 490 / 490 Output: Urine 250 / 250 1300 / 1300 300 / 300 Other: Meal Dinner Breakfast Percent of Meal Consumed 100% 5% # Voids 1 Weight 67.132 kg Patient Weight 03/22/17 23:59 Weight 67.132 kg General appearance: cooperative, no acute distress - Head Head exam: Present: normal inspection, normocephalic - Eye Eye exam: Present: normal appearance - Respiratory Respiratory exam: Present: CTAB - Cardiovascular Cardiovascular exam: Present: RRR, +S1, +S2 - Extremities Exam Extremities exam: Absent: pedal edema Oncology: Obj Data - Labs CBC & Chem 7: 03/22/17 04:15 03/23/17 05:08 Labs: Laboratory Results - last 24 hr 03/22/17 03/22/17 04:15 04:15 WBC 7.2 RBC 4.18 L Hgb 13.0 Hct 37.8 MCV 90.4 MCH 31.1 MCHC 34.4 RDW 13.1 Plt Count 328 MPV 8.8 L Immature Gran % 0.8 Seg Neutrophils % 66.6 Lymphocytes % 17.5 Monocytes % 8.2 Eosinophils % 6.5 Basophils % 0.4 Neutrophils # 4.8 Lymphocytes # 1.3 Monocytes # 0.6 Eosinophils # 0.5 Basophils # 0.0 Immature Plt Fraction 2.2 Sodium 133 L Potassium 4.1 Chloride 102 Carbon Dioxide 23 BUN 24 Creatinine 1.77 H Est GFR ( Amer) 46 L Est GFR (Non-Af Amer) 38 L BUN/Creatinine Ratio 14 Glucose 84 Calculated Osmolality 279 L Calcium 9.0 Consult Discharge Plan - Plan Referrals: [facility] [Outside] - 03/31/17 12:30 pm
[2017-03-22] MEDS ORDERED: *HR* Morphine 2 MG/ML SYRINGE IVP PRN (13:48)
--- NOTE | 2017-03-22 13:51 | Internal Med Progress Note ---
Date of Encounter: 03/22/17 Time of Encounter: 13:49 - Assessment and plan (1) Acute kidney injury superimposed on chronic kidney disease Current Visit: Yes Status: Acute Assessment and plan: midly improved CKD 3 hold aleeve and ibuprofen continue IVF (2) Head and neck cancer Current Visit: No Status: Acute Assessment and plan: squamous cell carcinoma of the tongue s/p radiation and cetuximab followed by oncology needs MRI brain and lumbar spine when renal function improves family worried for opioid withrdawal, try morphine PRN (3) Orthostatic hypotension Current Visit: Yes Status: Acute Assessment and plan: likely due to dehydration BP dropped from 188 laying down to 167 standing up and sitting IVF fall precautions (4) Dizziness Current Visit: Yes Status: Acute Assessment and plan: right hand weakness, consider possible ischemic CVA MRI when possible continue ASA consider primidone for essential tremors (5) Frequent falls Current Visit: Yes Status: Acute (6) Smoker Current Visit: Yes Status: Acute (7) Hypertension Current Visit: Yes Status: Acute Assessment and plan: consider hydralazine Qualifiers: Hypertension type: essential hypertension Qualified Code(s): I10 - Essential (primary) hypertension - Subjective Interval history: complains of shaking in his hands, right arm weakness in the last month, severe weakness, no CP or SOB - Constitutional Vitals: Temp Pulse Resp BP Pulse Ox 98.4 F 66 16 148/77 97 03/22/17 11:06 03/22/17 11:06 03/22/17 11:06 03/22/17 11:06 03/22/17 11:06 General appearance: Present: A&O X 3, pleasant, no acute distress, underweight - Head Head exam: Present: atraumatic, normocephalic - Eye Eye exam: Present: PERRL, conjuntiva pink, sclera anicteric Pupils: Present: PERRL - Neck Neck exam general surgery: Present: supple, trachea midline. Absent: lymphadenopathy - Respiratory Respiratory exam: Present: CTAB. Absent: accessory muscle use, rales, rhonchi, wheezes - Cardiovascular Cardiovascular exam: Present: RRR, +S1, +S2. Absent: diastolic murmur, gallop, rubs, systolic murmur - GI/Abdominal GI/Abdominal exam: Present: normal bowel sounds, soft, no peritoneal signs. Absent: distended, tenderness - Extremities Exam Extremities exam: Present: warm, radial pulses palpable and symetrical. Absent : calf tenderness, cyanotic, pedal edema - Neurological Exam Neurological exam: Present: CN II-XII intact, oriented X3, no focal deficits. Absent: pronater drift, facial droop, speech deficit Additional comments: essential tremors, right upper extremity weakness 3/5 essential tremors - Skin Skin exam: Present: dry, intact Internal Medicine: Result - Labs CBC & Chem 7: 03/22/17 04:15 03/22/17 04:15 Labs: Short CBC 03/22/17 Range/Units 04:15 WBC 7.2 (4.3-11.1) K/mcL Hgb 13.0 (12.9-16.9) g/dL Hct 37.8 (37.5-50.1) % Plt Count 328 (140-400) K/mcL Neutrophils # 4.8 (1.6-8.9) K/mcL BMP 03/22/17 04:15 Sodium 133 L Potassium 4.1 Chloride 102 Carbon Dioxide 23 BUN 24 Creatinine 1.77 H Glucose 84 Calcium 9.0 - VTE Documentation of Mechanical Device: Graduated compression elastic hosiery Consult Discharge Plan - Plan Referrals: [facility] [Outside] - 03/31/17 12:30 pm
[2017-03-22 14:49] LABS: Thyroid Stimulating Hormone 0.783 mcIU/mL (0.350-4.840)
[2017-03-22] MEDS: Mirtazapine 15 MG TABLET PO SCH (21:22)
[2017-03-23] MEDS: *HR* Heparin 5,000 UNIT/ML VIAL SQ SCH ×3 (05:12→22:08)
[2017-03-23] MEDS: 0.9 % Sodium Chloride 1,000 ML IVC SCH ×3 (05:13→19:20)
[2017-03-23 05:34] LABS: Calcium 9.3 mg/dL (8.6-10.8); Potassium 3.8 mEq/L (3.5-4.5)
[2017-03-23] MEDS: amLODIPine 5 MG TABLET PO SCH (07:18)
[2017-03-23] MEDS: Aspirin Enteric Coated 325 MG Tablet PO SCH (07:19)
[2017-03-23] MEDS: Nicotine 21 MG PATCH.TD24 TD SCH (07:19)
--- NOTE | 2017-03-23 10:06 | Internal Med Progress Note ---
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 followed by oncology needs MRI brain and lumbar spine (ordered) family worried for opioid withrdawal, try morphine PRN (3) Orthostatic hypotension Current Visit: Yes Status: Acute Assessment and plan: likely due to dehydration , resolved BP dropped from 188 laying down to 167 standing up and sitting upon admission but not noticed on 03/22/17 IVF fall precautions (4) Dizziness Current Visit: Yes Status: Acute Assessment and plan: right hand weakness, consider possible ischemic CVA MRI of the brain and lumbar spine with and without contrast per Oncology Dr Garcia from radiology agreed with the tests continue ASA consider primidone for essential tremors (5) Frequent falls Current Visit: Yes Status: Acute (6) Smoker Current Visit: Yes Status: Acute (7) Hypertension Current Visit: Yes Status: Acute Assessment and plan: consider hydralazine Qualifiers: Hypertension type: essential hypertension Qualified Code(s): I10 - Essential (primary) hypertension - Subjective Interval history: complains of shaking in his hands, right arm weakness in the last month, severe weakness, no CP or SOB, also complains of left lower extremity numbness - Constitutional Vitals: Temp Pulse Resp BP Pulse Ox 98.5 F 88 18 165/78 90 03/23/17 06:59 03/23/17 06:59 03/23/17 06:59 03/23/17 06:59 03/23/17 07:29 General appearance: Present: A&O X 3, pleasant, no acute distress, underweight - Head Head exam: Present: atraumatic, normocephalic - Eye Eye exam: Present: PERRL, conjuntiva pink, sclera anicteric Pupils: Present: PERRL - Neck Neck exam general surgery: Present: supple, trachea midline. Absent: lymphadenopathy - Respiratory Respiratory exam: Present: CTAB. Absent: accessory muscle use, rales, rhonchi, wheezes - Cardiovascular Cardiovascular exam: Present: RRR, +S1, +S2. Absent: diastolic murmur, gallop, rubs, systolic murmur - GI/Abdominal GI/Abdominal exam: Present: normal bowel sounds, soft, no peritoneal signs. Absent: distended, tenderness - Extremities Exam Extremities exam: Present: warm, radial pulses palpable and symetrical. Absent : calf tenderness, cyanotic, pedal edema Additional comments: essential tremors in both hands, left lower extremity numbness right upper extremity weakness 3/5 - Neurological Exam Neurological exam: Present: CN II-XII intact, oriented X3, no focal deficits. Absent: pronater drift, facial droop, speech deficit - Skin Skin exam: Present: dry. Absent: intact (small pippa over the dorsum of the right hand) Internal Medicine: Result - Labs CBC & Chem 7: 03/22/17 04:15 03/23/17 05:08 Labs: [facility] 03/23/17 05:08 Sodium 134 L Potassium 3.8 Chloride 102 Carbon Dioxide 21 BUN 24 Creatinine 1.68 H Glucose 86 Calcium 9.3 - VTE Documentation of Mechanical Device: Graduated compression elastic hosiery Consult Discharge Plan - Plan Referrals: [facility] [Outside] - 03/31/17 12:30 pm
--- NOTE | 2017-03-23 16:19 | Oncology Inp Progress Note ---
Date of Encounter: 03/23/17 Time of Encounter: 19:00 (1) Dizziness Current Visit: Yes Status: Acute Assessment and plan: MRI of the brain with and without contrast to r/o metastatic disease was obtained today and result is pending. (2) Low back pain Current Visit: Yes Status: Acute Assessment and plan: MRI of the Lumbar Spine has been obtained and result is pending. Qualifiers: Chronicity: acute Back pain laterality: bilateral Sciatica laterality: sciatica laterality unspecified Qualified Code(s): M54.40 - Lumbago with sciatica, unspecified side (3) Cancer of base of tongue Current Visit: No Status: Resolved Assessment and plan: s/p treatment with concurrent chemoradiation utilizing cetuximab. PET scan will be obtained as an outpatient to assess response to treatment. Oncology: Subj Interval history: Patient reports that he does not feel better. There was however no acute event overnight. - Constitutional Vitals: Vital Signs Temp Pulse Resp BP Pulse Ox 03/23/17 14:23 98.6 F 87 18 163/90 91 03/23/17 10:43 98.5 F 95 18 153/81 94 03/23/17 07:29 90 03/23/17 06:59 98.5 F 88 18 165/78 91 03/23/17 05:10 98.0 F 99 20 164/87 91 03/23/17 03:54 98.5 F 84 18 158/85 92 03/23/17 02:48 81 18 154/78 92 03/23/17 01:30 97.8 F 87 18 182/87 95 03/22/17 23:47 98.6 F 78 14 158/82 92 03/22/17 19:24 98.1 F 83 14 151/65 92 Intake and Output 03/23/17 03/23/17 03/23/17 07:59 15:59 23:59 Intake Total 1500 / 1500 820 / 820 Output Total 500 / 500 400 / 400 Balance 1000 / 1000 420 / 420 Intake: IV Fluids 1000 / 1000 0.9 % Sodium Chloride 1, 1000 / 1000 000 ML @ 100 mls/hr IVC . Q10H [facility] Rx#:[id number] Oral 500 / 500 820 / 820 Output: Urine 500 / 500 400 / 400 Other: Meal Breakfast Percent of Meal Consumed 0% Weight 68.1 kg Patient Weight 03/23/17 23:59 Weight 68.1 kg General appearance: average body habitus, no no acute distress, no obese, no severe distress - Head Head exam: Present: normal inspection, normocephalic - Eye Eye exam: Present: EOMI, normal appearance - ENT ENT exam: Present: normal exam, normal external ear exam - Neck Neck exam: Present: normal inspection. Absent: lymphadenopathy - Respiratory Respiratory exam: Present: CTAB - Cardiovascular Cardiovascular exam: Present: RRR, +S1, +S2 - GI/Abdominal GI/Abdominal exam: Present: soft. Absent: rebound, rigid, tenderness - Extremities Exam Extremities exam: Present: normal inspection. Absent: pedal edema - Neurological Exam Neurological exam: Present: alert, oriented X3 Oncology: Obj Data - Labs CBC & Chem 7: 03/22/17 04:15 03/24/17 04:56 Labs: Laboratory Results - last 24 hr 03/23/17 05:08 Sodium 134 L Potassium 3.8 Chloride 102 Carbon Dioxide 21 BUN 24 Creatinine 1.68 H Est GFR ( Amer) 49 L Est GFR (Non-Af Amer) 40 L BUN/Creatinine Ratio 14 Glucose 86 Calculated Osmolality 281 Calcium 9.3 Consult Discharge Plan - Plan Additional Instructions: Follow with primary care physician within 7 days. Avoid naproxen and ibuprofen. Continue Physical therapy as outpatient. Follow up with orthopedic surgery within 2 weeks. Fall precautions Referrals: [facility] [Outside] - 03/31/17 12:30 pm Prescriptions: Oxycodone HCl [Oxaydo] 5 mg PO TID PRN #20 tablet.orl PRN Reason: pain
[2017-03-23] MEDS: traMADol 50 MG TABLET PO PRN (17:03)
[2017-03-23] MEDS: Mirtazapine 15 MG TABLET PO SCH (22:11)
[2017-03-24] MEDS: *HR* Heparin 5,000 UNIT/ML VIAL SQ SCH (05:40)
[2017-03-24 05:53] LABS: Potassium 3.7 mEq/L (3.5-4.5)
[2017-03-24] MEDS: 0.9 % Sodium Chloride 1,000 ML IVC SCH (07:01)
[2017-03-24] MEDS: Aspirin Enteric Coated 325 MG Tablet PO SCH (08:30)
[2017-03-24] MEDS: Nicotine 21 MG PATCH.TD24 TD SCH ×2 (08:30→08:32)
[2017-03-24] MEDS: amLODIPine 5 MG TABLET PO SCH (08:30)
--- NOTE | 2017-03-24 09:06 | Discharge Summary ---
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 (3) Orthostatic hypotension Priority: Secondary Status: Acute Comments: likely due to dehydration , resolved BP dropped from 188 laying down to 167 standing up and sitting upon admission but not noticed on 03/22/17 (4) Dizziness Priority: Secondary Status: Acute (5) Frequent falls Priority: Secondary Status: Acute (6) Smoker Priority: Secondary Status: Acute (7) Hypertension Priority: Secondary Status: Acute Qualifiers: Hypertension type: essential hypertension Qualified Code(s): I10 - Essential (primary) hypertension (8) Spinal stenosis at L4-L5 level Priority: Secondary Status: Acute Comments: Multilevel spinal stenosis. 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 Also L5-S1 left paracentral disc extrusion compressing the descending left S1 nerve root. - Discharge Medications Prescriptions: Oxycodone HCl [Oxaydo] 5 mg PO TID PRN #20 tablet.orl PRN Reason: pain Home Medications: Multivitamin [Multi-Day Vitamins] 1 tab PO DAILY 10/22/16 [History] Acetaminophen [Tylenol] 1,000 mg PO Q6HR PRN 02/23/17 [History] Aspirin [Ecotrin] 325 mg PO DAILY PRN 02/23/17 [History] Cholecalciferol (D-3) [Vitamin D] 5,000 unit PO DAILY 02/23/17 [History] Lisinopril [Zestril] 20 mg PO DAILY 02/23/17 [History] Naproxen Sodium [Aleve] 220 mg PO BID PRN 02/23/17 [History] [place]-3/Dha/Epa/Fish Oil [Fish Oil 1,000 mg Softgel] 1,000 mg PO DAILY 02/23/17 [History] Oxycodone HCl [Oxaydo] 5 mg PO TID PRN #20 tablet.orl 03/24/17 [Rx] Allergies/Adverse Reactions: Allergies hydrochlorothiazide Allergy (Verified 03/21/17 07:11) Swelling of Lip/Tongue/Throat Procedures/tests Complete & Pending: Procedures Performed prior 72 hours Category Date Time Status MR head/brain wo/w con [MR] Routine MRI 03/23/17 09:50 Completed MR lumbar spine wo/w con [MR] Routine MRI 03/23/17 09:50 Draft Date of admission: 03/22/17 18:01 Primary care physician: PCP DC - Patient Status Disposition: Home Health Service Condition: Fair Overall status at discharge: patient is progressing back to baseline - Discharge Instructions Follow Up With: [facility] [Outside] - 03/31/17 12:30 pm Additional Instructions: Follow with primary care physician within 7 days. Avoid naproxen and ibuprofen. Continue Physical therapy as outpatient. Follow up with orthopedic surgery within 2 weeks. Fall precautions - Diet and Activity Activity: increase activity as tolerated Diet: low fat, low cholesterol Hospital course: Mr. 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 Patient reported this is been going on since completion of his chemotherapy and radiation in December. He reported he has shooting pain down his legs starting in his low back, worse on his left leg, when this happens he also experiences dizziness and he ends up falling. Additionally he had right neck and right shoulder pain that he initially related to his radiation treatments. He is unable to lift his arm above a 45 degree angle. He can passively lift it with his other arm. He reported occasional headaches on and off, chronic cough. Evaluation in the emergency room included shoulder x-ray which showed moderate joint osteoarthritis no evidence of fracture or dislocation. X-ray of the lumbar spine which showed dextroscoliosis and multilevel degenerative changes of the lumbar spine. Chest x-ray showed no acute cardiopulmonary process. Head CT showed no acute intracranial abnormality, periventricular and subcortical white matter hypodensities, likely due to chronic small vessel ischemic disease. Labs showed acute kidney injury on top of chronic kidney disease with creatinine of 1.91. Creatinin improved with IVF and by hoding lisinopril. He was recommended to avoid naproxen and ibuprofen in high doses. Oncology was consulted. MRI of the brain and lumbar spine did not show metastasis. Multiple levels of spinal stenosis and foraminal stenosis were observed. He was recommended to follow up with an orthopedic surgeon. Time spent discussing smoking cessation with patient: 3 to 10 minutes - Time Spent with Patient Total time spent providing and/or coordinating discharge services: Greater than 30 minutes (40 min) - Constitutional Vitals: Temp Pulse Resp BP Pulse Ox 98.9 F 89 18 188/90 93 03/24/17 06:47 03/24/17 06:47 03/24/17 06:47 03/24/17 08:12 03/24/17 06:47 General appearance: Present: A&O X 3, pleasant, no acute distress, underweight - Head Head exam: Present: atraumatic, normocephalic - Eye Eye exam: Present: PERRL, conjuntiva pink, sclera anicteric Pupils: Present: PERRL - Neck Neck exam general surgery: Present: supple, trachea midline. Absent: lymphadenopathy - Respiratory Respiratory exam: Present: CTAB. Absent: accessory muscle use, rales, rhonchi, wheezes - Cardiovascular Cardiovascular exam: Present: RRR, +S1, +S2. Absent: diastolic murmur, gallop, rubs, systolic murmur - GI/Abdominal GI/Abdominal exam: Present: normal bowel sounds, soft, no peritoneal signs. Absent: distended, tenderness - Extremities Exam Extremities exam: Present: warm, radial pulses palpable and symetrical. Absent : calf tenderness, cyanotic, pedal edema - Neurological Exam Neurological exam: Present: CN II-XII intact, oriented X3, no focal deficits. Absent: pronater drift, facial droop, speech deficit Additional comments: right upper extremity weakness 3/5. - Skin Skin exam: Present: dry, intact - VTE Documentation of Mechanical Device: Graduated compression elastic hosiery
--- NOTE | 2017-03-24 09:20 | Physician Discharge Referral ---
Home Health/Hosp Referral Info Transfer to: Home Health Provider in Charge Post Discharge: PCP - Diagnosis (1) Acute kidney injury superimposed on chronic kidney disease Status: Acute (2) Head and neck cancer Status: Acute (3) Orthostatic hypotension Status: Acute (4) Dizziness Status: Acute (5) Frequent falls Status: Acute (6) Smoker Status: Acute (7) Hypertension Status: Acute (8) Spinal stenosis at L4-L5 level Status: Acute - Respiratory Orders Smoking Cessation: Smoking cessation has been advised. For more information, call the [employer] Tobacco Quit Line at 9-325-ZIHQ-NOW. - Diet/Nutrition Diet/Nutrition Orders: No Added Salt (CATHERINE) - Services Needed Following services are medically necessary services: Home Health Aide, Physical Therapy Home Care Orders: Follow with primary care physician within 7 days. Avoid naproxen and ibuprofen. Continue Physical therapy as outpatient. Follow up with orthopedic surgery within 2 weeks. Fall precautions - Transfer Medications Prescriptions: Oxycodone HCl [Oxaydo] 5 mg PO TID PRN #20 tablet.orl PRN Reason: pain Home Medications: Multivitamin [Multi-Day Vitamins] 1 tab PO DAILY 10/22/16 [History] Acetaminophen [Tylenol] 1,000 mg PO Q6HR PRN 02/23/17 [History] Aspirin [Ecotrin] 325 mg PO DAILY PRN 02/23/17 [History] Cholecalciferol (D-3) [Vitamin D] 5,000 unit PO DAILY 02/23/17 [History] Lisinopril [Zestril] 20 mg PO DAILY 02/23/17 [History] Naproxen Sodium [Aleve] 220 mg PO BID PRN 02/23/17 [History] [place]-3/Dha/Epa/Fish Oil [Fish Oil 1,000 mg Softgel] 1,000 mg PO DAILY 02/23/17 [History] Oxycodone HCl [Oxaydo] 5 mg PO TID PRN #20 tablet.orl 03/24/17 [Rx] Allergies/Adverse Reactions: Allergies hydrochlorothiazide Allergy (Verified 03/21/17 07:11) Swelling of Lip/Tongue/Throat Certification: Further, I certify that my clinical findings support that this patient is homebound (i.e. absences from home require considerable and taxing effort and are for medical reasons or [employer] services or infrequently or short duration when for other reasons) because: Homebound Reason: Patient requires assistance of a person or device to safely leave home Attestation: My signature below is to certify that this patient is under my care and that I, or nurse practitioner, or a physician's clinical nursing assistant working with me, has a face-to -face encounter with this patient.
[2017-03-24 12:24] VITALS: BP 165/85
== END 2017-03-24 12:23 | disposition home health service (06) | DRG 684 ==
LOC: 3ANU 07:02 → EMEROO 07:02 → SUATTDRO 11:30 → 3ANU 12:15
PROVIDERS: ADMIT Internal Medicine; ATTEND Internal Medicine

== ENCOUNTER 2017-04-19 06:29 | Observation (INO) ==
[2017-04-19] MEDS ORDERED: Nitroglycerin 0.4 MG TAB.SUBL SL ONE (06:37)
[2017-04-19] MEDS ORDERED: Aspirin 81 MG TAB.CHEW PO ONE (06:37)
[2017-04-19 06:55] LABS: Basophils % 0.3 %; Eosinophils # 0.5 K/mcL (0.0-0.6); Eosinophils % 4.3 %; Hematocrit 38.5 % (37.5-50.1); Hemoglobin 13.3 g/dL (12.9-16.9); Immature Granulocytes % 0.5 % (0-4); Lymphocytes # 1.2 K/mcL (0.6-4.6); Lymphocytes % 10.4 %; Mean Corpuscular HGB Conc 34.5 g/dL (31.6-35.5); Mean Corpuscular Hemoglobin 30.4 pg (28.0-33.3); Mean Corpuscular Volume 87.9 fL (83.0-100.0); Mean Platelet Volume 8.7 fL (9.4-12.4); Monocytes # 0.9 K/mcL (0.0-1.3); Monocytes % 7.3 %; Platelet Count 340 K/mcL (140-400); Red Blood Count 4.38 M/mcL (4.19-5.50); Red Cell Distribution Width 12.4 % (11.5-14.5); Segmented Neutrophils % 77.2 %
[2017-04-19 07:01] LABS: Prothrombin Time 10.3 Seconds (9.4-12.1)
[2017-04-19 07:03] LABS: Activated Partial Thrombo Time 34.3 Seconds (26.0-36.0)
--- NOTE | 2017-04-19 07:14 | Emergency Department Note ---
START Narrative - START START: Patient is a 76-year-old white male with a history of hypertension and high cholesterol presents to the emergency department by EMS this morning complaining of substernal chest pain that woke him from sleep at approximately 3 :30 this morning. Patient denies any actual shortness of breath with this but states that the pain seems worse with deep breathing. Patient denies any diaphoresis, no abdominal pain flank pain or back pain. Patient states the pain radiates through to his bilateral paraspinal neck area. Patient denies any lightheadedness or near syncope at home prior to arrival. Patient on arrival is complaining that he has had significant improvement in his symptoms and is currently not having any pain in his anterior chest and he just feels some residual 1 out of 10 achiness that he describes in the bilateral rhomboid areas of his posterior paraspinal neck. Patient was given aspirin on arrival to the ED. Vital signs are stable on arrival. EKG was brought to me and signed that 6:45 AM that showed questionable ST elevation in the inferior leads in leads 2 and aVF which are 1/2 mm in elevation. These appear unchanged to prior EKG that was obtained on 03/21/2017. Patient's exam overall shows HEENT unremarkable with moist membranes, neck is supple with no JVD. Heart is regular rate and rhythm with no murmurs auscultated. Lungs are clear to auscultation bilaterally with no reproducible chest wall tenderness with palpation. Patient's abdomen is soft nontender nondistended positive bowel sounds, no flank tenderness. Percussion of the flank area. Patient's lower extremities there is no cyanosis clubbing or edema , he has good distal pulses 2 out of 4 and equal throughout. Neuro exam cranial nerves II through XII are intact focal neurologic deficits on examination skin is warm and dry no diaphoresis is appreciated. Psych patient with appropriate mood and affect. Chest pain protocol was initiated patient's labs were drawn and sent and portal chest x-ray was ordered. At this time we are repeating an EKG to see if there is any change in this questionable elevation in the inferior leads and the interventional assessment page. I have at this point sign-up patient to Dr. Amin the morning ER doctor who is here and will follow-up on the call with interventional cardiology. We did attempt to call at [phone] and there is no reply by the night interventionalists so we re-paged the daytime interventionalists just after 7 AM.
[2017-04-19 07:21] LABS: Calcium 9.8 mg/dL (8.6-10.8); Potassium 4.3 mEq/L (3.5-4.5)
--- NOTE | 2017-04-19 07:39 | Emergency Department Note ---
Disposition Clinical Impression: Chest pain Qualifiers: Chest pain type: chest pain on breathing Qualified Code(s): R07.1 - Chest pain on breathing Disposition: Admitted As Inpatient Condition: Fair Time of Disposition: 07:57 Chest Pain HPI - General Chief Complaint: ED Chest Pain Stated Complaint: Chest Pain Time Seen by Provider: 04/19/17 07:36 Source: patient, EMS Limitations: no limitations Vital Signs Reviewed: Yes Nursing Notes Reviewed: Yes - History of Present Illness HPI Narrative: 76-year-old male who was seen initially by paper spooler Dr. Ross who comes in complaining of chest pain beginning about 3:00. Patient states the chest pain was much worse at onset has now decreased to about a 1 out of 10. He should has multiple risk factors including hypertension hypercholesterolemia and cigarette smoking and family history. EKG initially showed some ST segment elevation in 2 and aVF. Currently the patient is not having chest pain when I speak to him. Severity scale (1-10): 8 - Related Data Home Medications Medication Instructions Recorded Confirmed Multivitamin [Multi-Day Vitamins] 1 tab PO DAILY 10/22/16 04/01/17 Acetaminophen [Tylenol] 1,000 mg PO Q6HR PRN 02/23/17 04/01/17 Lisinopril [Zestril] 20 mg PO DAILY 02/23/17 04/01/17 [place]-3/Dha/Epa/Fish Oil [Fish Oil 1,000 mg PO DAILY 02/23/17 04/01/17 1,000 mg Softgel] Amlodipine Besylate 10 mg PO DAILY 04/01/17 04/01/17 Omeprazole 20 mg PO DAILY 04/01/17 04/01/17 Cholecalciferol (Vitamin D3) 5,000 unit PO 04/19/17 [Dialyvite Vitamin D] Allergies Allergy/AdvReac Type Severity Reaction Status Date / Time hydrochlorothiazide Allergy Swelling Verified 03/21/17 07:11 of Lip/Tongue/Throat All systems ED: reviewed and negative except as stated. Constitutional: Denies: fever, chills, weakness, weight change Eyes: Denies: eye pain, eye discharge, vision change ENT ED: Denies: ear pain, throat pain, dental pain, hearing loss, epistaxis, congestion, dysphagia Cardiovascular: Reports: chest pain. Denies: palpitations, dyspnea on exertion , edema, syncope Respiratory: Denies: cough, dyspnea, wheezes, hemoptysis, stridor Gastrointestinal: Denies: abdominal pain, nausea, vomiting, diarrhea, constipation, hematemesis, melena, hematochezia Genitourinary: Denies: urgency, dysuria, frequency, hematuria Musculoskeletal: Denies: back pain, neck pain, arthralgia, myalgia Integumentary: Denies: rash, abrasion, lesions Neurological: Denies: headache, weakness, numbness, paresthesias, confusion, abnormal gait, vertigo Psychiatric: Denies: anxiety, depression, suicidal thoughts, homicidal thoughts , auditory hallucinations, visual hallucinations Endocrine: Denies: fatigue Hematological/Lymphatic: Denies: easy bleeding, easy bruising Allergic/Immunologic: Denies: facial swelling, urticaria Chest Pain PMH - Past Medical History Medical history: Reports: cancer, hyperlipidemia, hypertension Surgical history: Reports: herniorrhaphy, other (traumatic amputation of right toes) Psychiatric history: Reports: no psych history - Social History Smoking Status: Current every day smoker Alcohol use: Reports: rarely Drug use: Reports: none Physical Exam - General Limitations: no limitations General appearance: alert, in no apparent distress - Head Head exam: atraumatic, normocephalic, normal inspection - Eye Eye exam: Present: normal appearance, PERRL, EOMI - ENT ENT exam: normal exam, normal oropharynx, mucous membranes moist - Neck Neck exam: Present: normal inspection, full ROM, trachea midline - Chest Chest inspection: Present: normal inspection, symmetric chest wall rise - Respiratory Respiratory exam: Present: normal lung sounds bilaterally - Cardiovascular Cardiovascular exam: Present: regular rate, normal rhythm, normal heart sounds - Abdominal Exam Abdominal exam: Present: soft, Non-Tender. Absent: tenderness, distention, guarding, rebound, rigidity - Extremities Exam Extremities exam: Present: normal inspection, full ROM. Absent: tenderness, pedal edema - Expanded Lower Extremity Exam Neurovascular/Tendon exam: Absent: motor deficit, sensory deficit, tendon deficit Gait: observed and normal - Back Exam Back exam: Present: normal inspection, full ROM. Absent: tenderness - Neurological Exam Neurological exam: Present: alert, oriented X3 - Psychiatric Psychiatric exam: Present: normal affect, normal mood - Skin Skin exam: Present: warm, dry, intact, normal color Course - Reevaluation(s) Reevaluation #1: Cardiology is here evaluating the patient. Time: 07:50 - Consultations Consultation #1: general contractor was paged at 7:[address] Jessi Dixon the EKG was sent to her for evaluation. Time: 07:38 Consultation #2: Discussed with cardiology of, PR versus pericarditis. Dr. Dixon did review a repeat EKG and indicates not a STEMI. Recommend admission to the hospitalist. Time: 08:18 Consultation #3: Discussed with Dr. Gentile, admit. Time: 08:57 Additional Consultation(s): 9:50 AM discussed with cardiology , requests that we start heparin. Vital Signs Temperature 98.1 F 04/19/17 06:30 Pulse Rate 78 04/19/17 06:30 Respiratory Rate 20 04/19/17 06:30 Blood Pressure 128/74 04/19/17 06:30 O2 Sat by Pulse Oximetry 96 04/19/17 06:30 Temperature 98.1 F 04/19/17 06:30 Pulse Rate 77 04/19/17 08:46 Respiratory Rate 18 04/19/17 08:46 Blood Pressure 119/72 04/19/17 08:46 O2 Sat by Pulse Oximetry 91 04/19/17 08:46 Oxygen Delivery Oxygen Delivery Nasal Cannula Chest Pain - MDM Narrative Medical decision making narrative: Repeat EKG was obtained at [address] AM. Continues to have ST segment elevation. - Lab Data Lab results reviewed: Yes I reviewed the patient's lab results. Result diagrams: 04/19/17 06:48 04/19/17 06:48 Lab Results 04/19/17 04/19/17 04/19/17 Range/Units 06:48 06:48 06:48 WBC 11.7 H (4.3-11.1) K/mcL RBC 4.38 (4.19-5.50) M/mcL Hgb 13.3 (12.9-16.9) g/dL Hct 38.5 (37.5-50.1) % MCV 87.9 (83.0-100.0) fL MCH 30.4 (28.0-33.3) pg MCHC 34.5 (31.6-35.5) g/dL RDW 12.4 (11.5-14.5) % Plt Count 340 (140-400) K/mcL MPV 8.7 L (9.4-12.4) fL Immature Gran % 0.5 (0-4) % Seg Neutrophils % 77.2 % Lymphocytes % 10.4 % Monocytes % 7.3 % Eosinophils % 4.3 % Basophils % 0.3 % Neutrophils # 9.0 H (1.6-8.9) K/mcL Lymphocytes # 1.2 (0.6-4.6) K/mcL Monocytes # 0.9 (0.0-1.3) K/mcL Eosinophils # 0.5 (0.0-0.6) K/mcL Basophils # 0.0 (0.0-0.2) K/mcL PT 10.3 (9.4-12.1) Seconds INR 1.0 APTT 34.3 (26.0-36.0) Seconds Sodium (136-145) mEq/L Potassium (3.5-4.5) mEq/L Chloride (98-109) mEq/L Carbon Dioxide (19-29) mEq/L BUN (8-26) mg/dL Creatinine (0.72-1.25) mg/dL Est GFR ( Amer) (> 60) Est GFR (Non-Af Amer) (> 60) BUN/Creatinine Ratio (6-26) Glucose (70-99) mg/dL Calculated Osmolality (280-300) Calcium (8.6-10.8) mg/dL Troponin I (0-0.03) ng/mL B-Natriuretic Peptide 83 (0-100) pg/mL //17 04/19/17 Range/Units 06:48 06:48 WBC (4.3-11.1) K/mcL RBC (4.19-5.50) M/mcL Hgb (12.9-16.9) g/dL Hct (37.5-50.1) % MCV (83.0-100.0) fL MCH (28.0-33.3) pg MCHC (31.6-35.5) g/dL RDW (11.5-14.5) % Plt Count (140-400) K/mcL MPV (9.4-12.4) fL Immature Gran % (0-4) % Seg Neutrophils % % Lymphocytes % % Monocytes % % Eosinophils % % Basophils % % Neutrophils # (1.6-8.9) K/mcL Lymphocytes # (0.6-4.6) K/mcL Monocytes # (0.0-1.3) K/mcL Eosinophils # (0.0-0.6) K/mcL Basophils # (0.0-0.2) K/mcL PT (9.4-12.1) Seconds INR APTT (26.0-36.0) Seconds Sodium 129 L (136-145) mEq/L Potassium 4.3 (3.5-4.5) mEq/L Chloride 93 L (98-109) mEq/L Carbon Dioxide 22 (19-29) mEq/L BUN 33 H (8-26) mg/dL Creatinine 2.77 H (0.72-1.25) mg/dL Est GFR ( Amer) 27 L (> 60) Est GFR (Non-Af Amer) 23 L (> 60) BUN/Creatinine Ratio 12 (6-26) Glucose 86 (70-99) mg/dL Calculated Osmolality 275 L (280-300) Calcium 9.8 (8.6-10.8) mg/dL Troponin I 0.01 (0-0.03) ng/mL B-Natriuretic Peptide (0-100) pg/mL - Radiology Data Radiology results reviewed: Yes I reviewed the patient's radiology results. Chest X-Ray 04/19/17 06:37 IMPRESSION: Mild right basilar atelectasis. Otherwise, no acute cardiopulmonary abnormality. D/ / Hoa Gregorio MD / Hoa Gregorio MD Interpreting Provider: Hoa Gregorio MD - EKG Data EKG attestation: Yes I reviewed and interpreted this EKG. EKG shows normal: sinus rhythm Rate: normal Rhythm: NSR ST segment elevation in: II, aVF When compared to previous EKG there are: changes noted Interpretation: other (Some elevation in inferior leads.) Heart Score - Score History: Moderately Suspicious EKG: Non Specific repolarisation Disturbance Age: Greater than 65 Risk Factors: Equal/Greater than 3 risk factor or history of atherosclerotic disease
[2017-04-19] MEDS ORDERED: *HR* Morphine 2 MG/ML SYRINGE IVP ONE (07:48)
[2017-04-19] MEDS ORDERED: Ondansetron 4 MG/2 ML VIAL IVP ONE (07:48)
--- NOTE | 2017-04-19 08:53 | Cardiology Consult Note ---
Date of Encounter: 04/19/17 Time of Encounter: 08:34 Assessment and Plan (1) Chest pain Current Visit: Yes Status: Acute EKG reviewed with Dr. Jessi Dixon, interventional cardiology. EKG not concerning for STEMI at this time. Initial troponin negative. Atypical chest pain. Symptoms concerning for possible pericarditis. Work-up for pericarditis vs ACS. Patient noted to have MARIO. Check d-dimer. Check echocardiogram. Continue to trend troponin. Asa, statin, bb. Qualifiers: Chest pain type: chest pain on breathing Qualified Code(s): R07.1 - Chest pain on breathing (2) Acute kidney injury superimposed on chronic kidney disease Current Visit: No Status: Acute Creatinine 2.77. Baseline 1.5-1.9. Avoid nephrotoxins. Discussion w patient/family: The assessment and plan as outlined above was discussed with the patient and/or family members who expressed understanding and agreement. All questions were answered. Thank you for involving us in the care of your patient. Please call with any questions. History of Present Illness Consult date: 04/19/17 Requesting physician: Camilo Olea Consult reason: Chest pain, abnormal EKG Chief complaint: Chest pain History of present illness: Mr. Loya is a 76 year old male who presented with c/o sudden onset of midsternal chest pain radiating to both of his shoulders and left back waking him up from his sleep around 3:30 am. He took two tylenol with no relief. He tried to lay back down but the pain increased. He also c/o increased back pain with deep breath. He associates his symptoms with SOB. He presented to the ER and was found to have borderline diffuse ST elevation on his EKG. Initial troponin was negative. Interventionalist was notified and EKG reviewed. Patient is being admitted for possible pericarditis/ ACS rule out. On my exam he continues to have upper left back pain that increases with deep breaths. He was given morphine with some relief. Past medical history is significant for hypertension, hyperlipidemia, COPD, tounge cancer, and tobacco abuse. Past Med Surg Social Fam HX - Past Medical History Attestation: Yes The following information was validated with the patient. Medical history: cancer, coronary artery disease, hyperlipidemia, hypertension Psychiatric history: no psych history - Past Surgical History Surgical History: herniorrhaphy, other (traumatic amputation of right toes) - Social History Smoking Status: Current every day smoker Alcohol use: rarely Drug use: none - Family History Mother Living Status: Hx Family Cardiac Disorders: Yes Hx Family Respiratory Disorders: No Hx Family Cancer: Yes (Lung Cancer) Hx Family GI Disorders: No Hx Family Endocrine Disorder: No (Diabetes) Hx Family Neuromuscular Disorders: No Hx Family Neurologic Disorders: No Hx Family HEENT Disorders: No Hx Family Autoimmune Disorders: No Father Living Status: Medications and Allergies Multivitamin [Multi-Day Vitamins] 1 tab PO DAILY 10/22/16 [History] Acetaminophen [Tylenol] 1,000 mg PO Q6HR PRN 02/23/17 [History] Cholecalciferol (D-3) [Vitamin D] 5,000 unit PO DAILY 02/23/17 [History] Lisinopril [Zestril] 20 mg PO DAILY 02/23/17 [History] [place]-3/Dha/Epa/Fish Oil [Fish Oil 1,000 mg Softgel] 1,000 mg PO DAILY 02/23/17 [History] Oxycodone HCl [Oxaydo] 5 mg PO TID PRN #20 tablet.orl 03/24/17 [Rx] Amlodipine Besylate 10 mg PO DAILY 04/01/17 [History] Omeprazole 20 mg PO DAILY 04/01/17 [History] Allergies hydrochlorothiazide Allergy (Verified 03/21/17 07:11) Swelling of Lip/Tongue/Throat All Systems Review: A 10-system review of systems was performed and is negative for pertinent findings except as documented above in the HPI. Physical Examination Vital Signs, Last 4 Hours Temp Pulse Resp BP Pulse Ox 04/19/17 08:23 74 16 130/78 92 04/19/17 08:04 73 16 138/77 94 04/19/17 07:38 77 16 111/87 94 04/19/17 06:52 93 04/19/17 06:30 98.1 F 78 20 128/74 96 General: Conversant, No Apparent Distress HEENT: Atraumatic, Normocephaly, Mucus Membranes Moist Neck: No JVD, Normal carotid pulses Cardiac: Reg Rate and Rhythm, Normal S1 and S2, No Murmur, Other (NSR on telemetry) Lungs: Normal Breath Sounds, No Wheeze, Rales, Rhonchi, Other (diminished bases) Neuro: Alert and responsive, No focal deficits noted Abdomen: Soft, Non-Tender Skin: No rashes noted on visualized skin Musculoskeletal: No Chest Wall Tenderness Extremities: No Clubbing, No Cyanosis, No Edema, Normal Pulses Results 04/19/17 06:48 04/19/17 06:48 Lab Results 04/19/17 04/19/17 04/19/17 06:48 06:48 06:48 WBC 11.7 H Hgb 13.3 Hct 38.5 Plt Count 340 INR 1.0 APTT 34.3 Sodium Potassium Chloride Carbon Dioxide BUN Creatinine Glucose Calcium Troponin I B-Natriuretic Peptide 83 04/19/17 04/19/17 06:48 06:48 WBC Hgb Hct Plt Count INR APTT Sodium 129 L Potassium 4.3 Chloride 93 L Carbon Dioxide 22 BUN 33 H Creatinine 2.77 H Glucose 86 Calcium 9.8 Troponin I 0.01 B-Natriuretic Peptide Chest X-Ray 04/19/17 06:37 IMPRESSION: Mild right basilar atelectasis. Otherwise, no acute cardiopulmonary abnormality. D/ / Hoa Gregorio MD / Hoa Gregorio MD Interpreting Provider: Hoa Gregorio MD - EKG Interpretation EKG results cardiology: personally reviewed (SR with diffuse borderline ST elevation. Consider pericarditis.) Consult Discharge Plan - Plan [facility]errals: [facility]Primary Care Provider[facility] -
[2017-04-19] MEDS ORDERED: *HR* Heparin 5,000 UNIT/ML VIAL IVP ONE (09:49)
[2017-04-19] MEDS ORDERED: *HR* Heparin 5,000 UNIT/ML VIAL IVP PRN ×2 (09:49)
[2017-04-19] MEDS ORDERED: Heparin 25,000 UNIT/500 ML D5W 25,000 UNIT/500 ML MLS IVC SCH (10:00)
[2017-04-19 10:51] LABS: Hemoglobin 12.6 g/dL (12.9-16.9); Mean Corpuscular Hemoglobin 30.9 pg (28.0-33.3); Mean Corpuscular Volume 88.2 fL (83.0-100.0); Mean Platelet Volume 8.7 fL (9.4-12.4); Platelet Count 330 K/mcL (140-400); Red Blood Count 4.08 M/mcL (4.19-5.50); Red Cell Distribution Width 12.5 % (11.5-14.5)
[2017-04-19 10:57] LABS: Prothrombin Time 10.7 Seconds (9.4-12.1)
[2017-04-19 10:59] LABS: Activated Partial Thrombo Time 33.9 Seconds (26.0-36.0)
[2017-04-19] MEDS ORDERED: Naloxone 0.4 MG/ML INJ IVP PRN (12:01)
[2017-04-19] MEDS ORDERED: 0.9 % Sodium Chloride 1,000 ML IVC SCH (12:15)
[2017-04-19 12:51] LABS: Chol/HDL Ratio 4.2 (0-4.9); Magnesium 1.7 mg/dL (1.6-2.6); Phosphorous 4.3 mg/dL (2.3-4.7)
[2017-04-19] MEDS ORDERED: Lisinopril 20 MG TABLET PO SCH (13:00)
--- NOTE | 2017-04-19 13:58 | Internal Med History&Physical ---
<JeffrySeth Velasquez - Last Filed: 04/19/17 19:33> Date of Encounter: 04/19/17 Time of Encounter: 10:30 Assessment and Plan (1) Chest pain Current visit: Yes Status: Acute Assess: Mr. Puga presents with chief complaint of chest pain which began approximately 3 AM today (04/19/17). Patient states chest pain was much worse in onset and he described it as a stabbing pain which he has never had before that radiated to his left shoulder and neck. Patient reports that the pain woke him from sleep and was worse when laying flat than when he was sitting up and came on without exertion. Patient denies history of previous chest pain or cardiac disease/symptoms. D-dimer is 1439 on initial blood draw. Plan: IV Heparin drip started in ED Continuous cardiac telemetry ordered Repeat EKG ordered Supplemental O2 ordered with titration if SpO2 <92% VQ scan ordered to rule out PE Bilateral venous doppler of LE ordered to rule out DVTs Nitroglycerin 0.4 SL Q5MIN PRN ordered Monitor patient and vital signs Qualifiers: Chest pain type: other chest pain Qualified Code(s): R07.89 - Other chest pain; R07.8 - Other chest pain (2) Leukocytosis Current visit: Yes Status: Acute Assess: Patient presents with elevated white count of 11.7 on initial blood draw. Secondary CBC shows WBCs of 13.1. Patient is afebrile and no source of infection is identified. Patient presents with cough with sputum that is white in color. CXR dated today shows mild right basilar atelectasis, otherwise no acute cardiopulmonary abnormality. Plan: Blood cultures ordered Sputum cultures ordered Urine cultures ordered Will monitor follow-up labs and patient and consider antibiotic coverage based on culture results Qualifiers: Leukocytosis type: unspecified Qualified Code(s): D72.829 - Elevated white blood cell count, unspecified (3) Frequent falls Current visit: Yes Status: Acute Assess: Patient presents with history of frequent falls at home. Patient's family reports patient becomes dizzy and unbalanced when ambulating. Plan: Orthostatic BP ordered Orthostatic vital signs ordered SW consult ordered to assess need for home O2 and assistive walking devices Falls precautions/bed rest with bedside commode/[id number] only status due to dizziness/falls (4) Acute kidney injury superimposed on chronic kidney disease Current visit: Yes Status: Acute Assess: Patient presents with acute kidney injury superimposed on chronic kidney disease. Plan: Retroperitoneal ultrasound ordered (5) Hyperlipidemia Current visit: Yes Status: Chronic Assess: Patient presents with history of chronic hyperlipidemia. Plan: Continue Lipitor Lipid panel ordered Qualifiers: Hyperlipidemia type: unspecified Qualified Code(s): E78.5 - Hyperlipidemia , unspecified (6) Hypertension Current visit: Yes Status: Chronic Assess: Patient presents with history of chronic hypertension. Plan: Continue lisinopril Continue Lopressor Orthostatic BP ordered d/t falls Orthostatic vital signs ordered d/t/falls Monitor patient and vital signs Qualifiers: Hypertension type: essential hypertension Qualified Code(s): I10 - Essential (primary) hypertension (7) DVT prophylaxis Current visit: No Status: Acute Assess: Patient is prophylaxis to continue inpatient protocol and bed rest status. Plan: IV Herarin drip ordered and started in the ED Anti-embolic stockings ordered bilaterally Internal Medicine - H&P: HPI Chief complaint: Chest pain Admitted From: Emergency Dept Plans for Post Hospital Care: Home History of present illness: Mr. Puga is a 76 year old male presents from the ED with chief complaint of chest pain which began approximately 3 AM today (04/19/17). Patient states chest pain was much worse in onset and he described it as a stabbing pain which he has never had before that radiated to his left shoulder and neck. Patient reports that the pain woke him from sleep and was worse when laying flat than when he was sitting up and came on without exertion. Patient denies history of previous chest pain or cardiac disease/symptoms. Mr. Puga has history of throat cancer, hyperlipidemia, and hypertension. He reports having a current smoker, smoking 1-1/2 packs per day patient denies abdominal pain, nausea, vomiting, diarrhea, constipation, hematemesis, melena, hematochezia, palpitations, dyspnea on exertion, syncope. Mr. puga reports family history of heart disease, stroke, diabetes, and cancer. Initial EKG showed some ST segment elevation in 2 and aVF. Patient reports he is currently in no pain and chest pain has subsided completely. Patient is to be admitted as observation status with IV heparin drip started in the ED. Patient be placed on continuous cardiac telemetry, supplemental O2, and nitroglycerin 0.4 SL Q15MIN PRN. Orders for VQ scan to rule out possible PE and bilateral venous doppler to rule out DVT (s) placed. Patient is falls precaution/bed rest with bedside commode/up-with- assist only due to history of dizziness/falls. Orders for SW for home O2, PT, and OT placed as well. Patient to be monitored closely. Order [facility] placed. 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) - Social History Smoking Status: Current every day smoker Packs per day: 1 / PPD Smokeless Tobacco Status: No Alcohol use: rarely Drug use: none Occupational status: retired Current living situation: Home, With Family Activity Level: Independent ambulation Recent Out of Country Travel Within the Last 8 Weeks: No Exposure or Possible Exposure to Illness During Travel: No - Family History Mother Race: Family Member Ethnicity: Non- Living Status: Age at : 63 Cause of : [place] Hx Family Cardiac Disorders: Yes (AK, HD) Hx Family Respiratory Disorders: No Hx Family GI Disorders: No Hx Family Endocrine Disorder: Yes (DM) Hx Family Neuromuscular Disorders: No Hx Family Neurologic Disorders: No Hx Family HEENT Disorders: No Hx Family Autoimmune Disorders: No Father History Unknown: Yes Race: Family Member Ethnicity: Non- Living Status: Age at : 57 Cause of : [place] Hx Family Cardiac Disorders: Yes ([place], HD) Hx Family Psychosocial Disorders: Yes (Alcohol abuse) Brother Race: Family Member Ethnicity: Non- Living Status: Age at : 69 Cause of : Stroke Hx Family Cardiac Disorders: Yes (HD, Stroke) Sister Race: Family Member Ethnicity: Non- Living Status: Age at : 69 Cause of : Lung cancer Hx Family Cancer: Yes (Lung) Internal Medicine - H&P: Meds Multivitamin [Multi-Day Vitamins] 1 tab PO DAILY 10/22/16 [History] Acetaminophen [Tylenol] 1,000 mg PO Q6HR PRN 02/23/17 [History] Lisinopril [Zestril] 20 mg PO DAILY 02/23/17 [History] [place]-3/Dha/Epa/Fish Oil [Fish Oil 1,000 mg Softgel] 1,000 mg PO DAILY 02/23/17 [History] Amlodipine Besylate 10 mg PO DAILY 04/01/17 [History] Omeprazole 20 mg PO DAILY 04/01/17 [History] Cholecalciferol (Vitamin D3) [Dialyvite Vitamin D] 5,000 unit PO DAILY 04/19/17 [History] Allergies hydrochlorothiazide Allergy (Verified 03/21/17 07:11) Swelling of Lip/Tongue/Throat All Systems PM: A 10-system review of systems was performed and is negative for pertinent findings except as documented above in the HPI. - Constitutional Constitutional: no chills, no fever(s), no night sweats - EENT Eyes: no change in vision, no discharge, no pain, no photophobia Ears: no ear discharge, no ear pain, no tinnitus Nose, mouth and throat: no dysphagia, no nasal discharge, no neck pain, no sore throat - Breasts Breasts: as per HPI - Cardiovascular Cardiovascular ROS IM: as per HPI, chest pain, dyspnea, lightheadedness, no diaphoresis, no palpitations, no syncope - Respiratory Respiratory: as per HPI, cough, dyspnea, no wheezing, no excessive phlegm production - Gastrointestinal Gastrointestinal: no abdominal pain, no diarrhea, no hematemesis, no hematochezia, no melena, no nausea, no vomiting - Genitourinary Genitourinary ROS male: as per HPI, urinary incontinence - Musculoskeletal Musculoskeletal ROS IM: no numbness, no tingling - Integumentary Integumentary IM: no rash, no unusual bruising - Neurological Neurological ROS: as per HPI, dizziness, frequent falls, weakness, no confusion , no convulsions, no focal weakness, no numbness, no tingling, no tremor(s) - Psychiatric Psychiatric: as per HPI - Endocrine Endocrine IM: as per HPI - Hematologic/Lymphatic Hematologic/Lymphatic: no easy bruising - Allergic/Immunologic Allergic/Immunologic: as per HPI - Constitutional Vitals: Temp Pulse Resp BP Pulse Ox 98.1 F 77 20 122/71 97 04/19/17 06:30 04/19/17 11:27 04/19/17 11:27 04/19/17 11:23 04/19/17 11:27 General appearance: Present: cooperative, A&O X 3, pleasant, no acute distress, obese, answers questions appropriately - Head Head exam: Present: atraumatic, normocephalic - Eye Eye exam: Present: PERRL, conjuntiva pink, sclera anicteric Pupils: Present: PERRL - ENT ENT exam: Present: normal exam, normal external ear exam - Neck Neck exam general surgery: Present: normal inspection, supple, trachea midline. Absent: lymphadenopathy - Respiratory Respiratory exam: Present: decreased breath sounds - Cardiovascular Cardiovascular exam: Present: RRR, +S1, +S2. Absent: diastolic murmur, gallop, rubs, systolic murmur - GI/Abdominal GI/Abdominal exam: Present: normal bowel sounds, soft, no peritoneal signs. Absent: distended, tenderness - Rectal Rectal exam: Present: deferred - Additional comments: exam deferred. - Extremities Exam Extremities exam: Present: warm, radial pulses palpable and symetrical. Absent : calf tenderness, cyanotic, pedal edema - Back Exam Back exam: Present: normal inspection - Neurological Exam Neurological exam: Present: CN II-XII intact, oriented X3, no focal deficits. Absent: pronater drift, facial droop, speech deficit - Psychiatric Psychiatric exam: Present: normal affect, normal mood - Skin Skin exam: Present: dry, intact Internal Med - H&P Results - Labs CBC & Chem 7: 04/19/17 10:42 04/19/17 06:48 Labs: Short CBC 04/19/17 Range/Units 10:42 WBC 13.1 H (4.3-11.1) K/mcL Hgb 12.6 L (12.9-16.9) g/dL Hct 36.0 L (37.5-50.1) % Plt Count 330 (140-400) K/mcL Cardiac Enzymes 04/19/17 Range/Units 10:42 Troponin I 0.00 (0-0.03) ng/mL - EKG Data EKG shows normal: sinus rhythm - EKG Data Prior EKG available for review: yes Interpretation IM: suggestive of ischemia EKG comments: 04/19/17 14:23 EKG dated 04/19/17 at 06:33:57 shows sinus rhythm with frequent supraventricular premature complexes, inferior myocardial infarction of indeterminate age. EKG dated 04/19/17 at 07:59:43 shows sinus rhythm with inferior myocardial infarction, probably old. - Impressions ITS Impressions Pulmonary Perfusion Imaging 04/19/17 10:35 IMPRESSION: Low Probability for Pulmonary Embolus. D/ / Foster Hooper MD / Foster Hooper MD Interpreting Provider: Foster Hooper MD - Diagnostic Studies Chest x-ray Additional comments: Impressions Chest X-Ray 04/19/17 06:37 IMPRESSION: Mild right basilar atelectasis. Otherwise, no acute cardiopulmonary abnormality. D/ / Hoa Gregorio MD / Hoa Gregorio MD Interpreting Provider: Hoa Gregorio MD Pulmonary Perfusion Imaging 04/19/17 10:35 IMPRESSION: Low Probability for Pulmonary Embolus. D/ / Foster Hooper MD / Foster Hooper MD Interpreting Provider: Foster Hooper MD <Dana Hollins E - Last Filed: 04/20/17 07:48> Date of Encounter: 04/20/17 Internal Medicine - H&P: HPI History of present illness: Mr. Puga is a 76 year old male All Systems PM: A 10-system review of systems was performed and is negative for pertinent findings except as documented above in the HPI. - Constitutional Vitals: Temp Pulse Resp BP Pulse Ox 99.0 F 79 20 115/62 93 04/20/17 03:12 04/20/17 03:12 04/20/17 03:12 04/20/17 03:12 04/20/17 03:12 Internal Med - H&P Results - Labs CBC & Chem 7: 04/20/17 04:17 04/20/17 04:17 Labs: Short CBC 04/19/17 04/20/17 Range/Units 10:42 04:17 WBC 13.1 H 10.7 (4.3-11.1) K/mcL Hgb 12.6 L 11.5 L (12.9-16.9) g/dL Hct 36.0 L 32.7 L (37.5-50.1) % Plt Count 330 311 (140-400) K/mcL Neutrophils # 9.2 H (1.6-8.9) K/mcL BMP 04/20/17 04:17 Sodium 126 L Potassium 4.5 Chloride 94 L Carbon Dioxide 21 BUN 35 H Creatinine 2.82 H Glucose 110 H Calcium 9.5 Cardiac Enzymes 04/19/17 Range/Units 10:42 Troponin I 0.00 (0-0.03) ng/mL Liver Function 04/20/17 Range/Units 04:17 Total Bilirubin 0.5 (0.2-1.2) mg/dL AST 13 (5-34) Units/L ALT 11 (0-55) Units/L Alkaline Phosphatase 78 (38-126) Units/L Albumin 3.4 L (3.5-5.0) g/dL Urine 04/19/17 Range/Units 21:20 Urine Color Yellow (Yellow) Urine Clarity Clear (Clear) Urine pH 6.0 (5.0-8.0) pH Units Ur Specific [place] 1.012 (1.010-1.025) Urine Protein 100 H (Neg-Trace) mg/dL Urine Glucose (UA) Normal (Normal) mg/dL - Impressions ITS Impressions Pulmonary Perfusion Imaging 04/19/17 10:35 IMPRESSION: Low Probability for Pulmonary Embolus. D/ / Foster Hooper MD / Foster Hooper MD Interpreting Provider: Foster Hooper MD Retroperitoneum Ultrasound 04/19/17 21:00 IMPRESSION: 1. Enlarged prostate. 2. Increased postvoid bladder volume suggestive of bladder outlet obstruction by the enlarged prostate. 3. Unremarkable ultrasound of the kidneys . D/ / Lino Alaniz MD / Lino Alaniz MD Interpreting Provider: Lino Alaniz MD - Attending Attestation This is a late entry for a patient I examined and reviewed laboratory, imaging and all diagnostic data on 04/19/17. My medical decision-making was reviewed with Seth Teran - DELORES. I agreed with the documented findings, disposition and treatment plan as described above. Mr Puga is a 76 year old male with past medical history of HTN, COPD, and tobacco use who presents with chest pain. during my examination patient was AOx3. heart, regular rate. chest CTAB. EKG reviewed by me and shows diffuse and transient ST elevation. troponin was negative. echocardiogram showed small pericardial fluid. CXR reviewed by me and shows atelectasis. A/P: 1. Acute pericarditis. Appreciate cardiology input. Prednisone x1 given. 2. [place] on CKD 3. gentle hydration. monitor closely. avoid nephrotoxic agents. check urine osmolality, creatinine, BUN and sodium. 4. moderate hyponatremia. Na at 129. hypovolemic. IV fluids NS. check uric acid. serum osmolality. consider nephrology consult.
--- NOTE | 2017-04-19 15:04 | Event Note ---
Date of Encounter: 04/19/17 Time of Encounter: 15:02 - Cardiology Event Note Given MARIO, will give one time dose of Prednisone 40mg PO. Hydrate overnight and if renal function improves in AM, will start NSAIDS for pericarditis tx.
[2017-04-19] MEDS ORDERED: predniSONE 20 MG TABLET PO ONE (15:06)
[2017-04-19] MEDS ORDERED: Ibuprofen 800 MG TABLET PO SCH (16:00)
[2017-04-19] MEDS: *HR* Heparin 5,000 UNIT/ML VIAL SQ SCH (18:51)
[2017-04-19 21:35] LABS: Bilirubin,Urine Negative (Negative); Blood,Urine Trace (Negative); Clarity,Urine Clear (Clear); Color,Urine Yellow (Yellow); Glucose,Urine (UA) Normal (Normal); Ketones,Urine Negative (Negative); Leukocyte Esterase,Urine Negative (Negative); Nitrite,Urine Negative (Negative); Protein,Urine 100 mg/dL (Neg-Trace); Specific Gravity,Urine 1.012 (1.010-1.025); Urobilinogen,Urine Normal (Normal)
[2017-04-19 21:38] LABS: Bacteria,Urine None Seen per hpf (None-Few); Hyaline Casts,Urine None Seen per lpf (None-Few); Squamous Epithelial Cell,Urine None Seen per lpf (None-Few); WBC,Urine 0-3 per hpf (0-3)
[2017-04-19 23:38] LABS: Creatinine,Urine 51 mg/dL
[2017-04-19 23:39] LABS: Sodium, Urine < 20.0 mEq/L
[2017-04-19 23:42] LABS: Osmolality,Urine 251 mOsm/kg (300-1090)
[2017-04-20] MEDS: Colchicine 0.6 MG TABLET PO SCH ×2 (00:36→10:32)
[2017-04-20 04:57] LABS: Eosinophils % 0.1 %; Hematocrit 32.7 % (37.5-50.1); Hemoglobin 11.5 g/dL (12.9-16.9); Immature Granulocytes % 0.5 % (0-4); Lymphocytes # 0.9 K/mcL (0.6-4.6); Lymphocytes % 8.2 %; Mean Corpuscular HGB Conc 35.2 g/dL (31.6-35.5); Mean Corpuscular Hemoglobin 31.1 pg (28.0-33.3); Mean Corpuscular Volume 88.4 fL (83.0-100.0); Mean Platelet Volume 9.3 fL (9.4-12.4); Monocytes # 0.5 K/mcL (0.0-1.3); Monocytes % 4.9 %; Neutrophils # 9.2 K/mcL (1.6-8.9); Platelet Count 311 K/mcL (140-400); Red Cell Distribution Width 12.5 % (11.5-14.5); Segmented Neutrophils % 86.3 %
[2017-04-20 05:14] LABS: Albumin 3.4 g/dL (3.5-5.0); Albumin/Globulin Ratio 0.9 (1.1-2.2); Bilirubin,Total 0.5 mg/dL (0.2-1.2); Calcium 9.5 mg/dL (8.6-10.8); Globulin 3.9 g/dL (2.4-3.5); Potassium 4.5 mEq/L (3.5-4.5); Total Protein 7.3 g/dL (6.0-8.3)
[2017-04-20] MEDS: *HR* Heparin 5,000 UNIT/ML VIAL SQ SCH ×3 (06:26→16:05)
[2017-04-20 08:36] LABS: Calcium 9.5 mg/dL (8.6-10.8); Potassium 4.8 mEq/L (3.5-4.5)
--- NOTE | 2017-04-20 10:42 | Cardiology Progress Note ---
Date of Encounter: 04/20/17 Time of Encounter: 10:39 Assessment and Plan (1) Chest pain Current Visit: Yes Status: Acute EKG SR with diffuse FL depression. Troponin negative x 3. VQ scan: low probability for PE. Pleuritic type chest pain consistent with pericarditis. Patient noted to have MARIO so ibuprofen discontinued. Ok to use cholchicine lowest dose 0.3 mg daily for renal dosing, creatinine clearance 22.8. Continue for 3 months. Consider increasing back to 0.6 mg daily if he has recurrent symptoms. TTE showed normal EF. Moderate diastolic dysfunction. Small pericardial effusion with no evidence of tamponade seen. Out patient f/u with repeat TTE to evaluate pericardial effusion in one week recommended. [facility] will coordinate. Cardiology will sign off. Call with questions. Qualifiers: Chest pain type: other chest pain Qualified Code(s): R07.89 - Other chest pain; R07.8 - Other chest pain (2) Acute kidney injury superimposed on chronic kidney disease Current Visit: Yes Status: Acute Creatinine 2.72. Baseline 1.5-1.9. Avoid nephrotoxins. Your IM care. Discussion w patient/family: The assessment and plan as outlined above was discussed with the patient and/or family members who expressed understanding and agreement. All questions were answered. Thank you for involving us in the care of your patient. Please call with any questions. Subjective Principal diagnosis: pericarditis. MARIO. Interval history: Mr. Loya denies recurrent chest pain. No events overnight. Objective Vital Signs, Last 4 Hours Temp Pulse Resp BP BP BP BP 04/20/17 10:35 97.8 F 60 17 146/76 04/20/17 08:41 98.0 F 82 16 144/82 04/20/17 08:37 144/71 141/82 146/73 Pulse Ox 04/20/17 10:35 100 04/20/17 08:41 91 04/20/17 08:37 General: Conversant, No Apparent Distress HEENT: Atraumatic, Normocephaly, Mucus Membranes Moist Neck: No JVD, Normal carotid pulses Cardiac: Reg Rate and Rhythm, Normal S1 and S2, No Murmur Lungs: Normal Breath Sounds, No Wheeze, Rales, Rhonchi Neuro: Alert and responsive, No focal deficits noted Abdomen: Soft, Non-Tender Skin: No rashes noted on visualized skin Musculoskeletal: No Chest Wall Tenderness Extremities: No Clubbing, No Cyanosis, No Edema, Normal Pulses Results 04/20/17 04:17 04/20/17 07:58 Lab Results 04/19/17 04/19/17 04/19/17 10:42 10:42 10:42 WBC 13.1 H Hgb 12.6 L Hct 36.0 L Plt Count 330 INR 1.0 APTT 33.9 Sodium Potassium Chloride Carbon Dioxide BUN Creatinine Glucose Calcium Magnesium Total Bilirubin AST ALT Alkaline Phosphatase Troponin I 0.00 B-Natriuretic Peptide 04/19/17 04/19/17 04/19/17 10:42 13:46 18:35 WBC Hgb Hct Plt Count INR APTT 36.0 Sodium Potassium Chloride Carbon Dioxide BUN Creatinine Glucose Calcium Magnesium 1.7 Total Bilirubin AST ALT Alkaline Phosphatase Troponin I B-Natriuretic Peptide 118 H 04/20/17 04/20/17 04/20/17 04:17 04:17 04:17 WBC 10.7 Hgb 11.5 L Hct 32.7 L Plt Count 311 INR APTT Sodium 126 L Potassium 4.5 Chloride 94 L Carbon Dioxide 21 BUN 35 H Creatinine 2.82 H Glucose 110 H Calcium 9.5 Magnesium 1.8 Total Bilirubin 0.5 AST 13 ALT 11 Alkaline Phosphatase 78 Troponin I B-Natriuretic Peptide 04/20/17 07:58 WBC Hgb Hct Plt Count INR APTT Sodium 128 L Potassium 4.8 H Chloride 96 L Carbon Dioxide 19 BUN 35 H Creatinine 2.72 H Glucose 104 H Calcium 9.5 Magnesium Total Bilirubin AST ALT Alkaline Phosphatase Troponin I B-Natriuretic Peptide - Imaging and Cardiology Echo: report reviewed - VTE Documentation of Mechanical Device: Graduated compression elastic hosiery Consult Discharge Plan - Plan Referrals: [facility] [Primary Care Provider] -
--- NOTE | 2017-04-20 15:36 | Electrocardiograph Report ---
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
--- NOTE | 2017-04-20 15:36 | Electrocardiograph Report ---
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
--- NOTE | 2017-04-20 15:37 | Electrocardiograph Report ---
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
[2017-04-20] MEDS: 0.9 % Sodium Chloride 1,000 ML IVC SCH (16:21)
--- NOTE | 2017-04-20 16:57 | Internal Med Progress Note ---
Date of Encounter: 04/20/17 Time of Encounter: 10:15 - Assessment and plan (1) Pericarditis Current Visit: Yes Status: Acute Assessment and plan: Patient presented to the emergency department with back pain that was sudden onset and sharp. The pain was worse with deep inspiration and lying supine. He was found to have a small circumferential pericardial effusion without evidence of tamponade not on his echocardiogram. Patient had leukocytosis, negative troponins 3, EKG sinus rhythm. D-dimer was elevated at 1439, VQ scan showed low probability for PE. Patient had pleuritic type chest pain that was consistent with pericarditis. Due to his renal function, he was unable to have the ibuprofen and was given a dose of prednisone by mouth per cardiology is okay to use colchicine 0.3 mg daily for renal dosing continue for 3 months. Consider increasing back to 0.6 mg daily if he has recurrent symptoms. It is recommended the patient follow-up in one week for repeat TTE to evaluate the pericardial effusion. [facility] will coordinate this. Qualifiers: Pericarditis type: unspecified type Chronicity: acute Qualified Code(s): I30.9 - Acute pericarditis, unspecified (2) Frequent falls Current Visit: Yes Status: Chronic Assessment and plan: Patient reports that he has been having increasing falls at home over the last 4 months, however patient's family at bedside says that has been at least the last 9 months. He denies chest pain or shortness of breath, he denies dizziness or lightheadedness. He denies weakness. He states that he is unsure as to why he falls. He had another fall in patient today. It was unwitnessed nurse entered the room and found patient lying in the floor. He appears to not have any injuries. There is no bleeding, lacerations, abrasions, hematomas noted at this time. Range of motion was within normal limits and there is no increasing pain with range of motion. They have instituted a neuro checks. He has been evaluated by physical therapy who recommended continued PT during admission, as well as therapy at home to build strength. Patient is on fall precautions. (3) Smoker Current Visit: Yes Status: Acute Assessment and plan: Patient is a smoker. He is not interested in smoking cessation. (4) DVT prophylaxis Current Visit: No Status: Acute Assessment and plan: Heparin subcutaneous. (5) Chest pain Current Visit: Yes Status: Resolved Assessment and plan: Patient presented with chest pain that was pleuritic in nature. It was worse with deep inspiration and lying supine. It was resolved in the emergency department when he was given medication. He was found to have pericarditis small effusion. This chest pain is consistent with pericarditis. He has been seen by cardiology and they have signed off. He will have follow-up [facility] in a week to reevaluate the effusion. He has not had any chest pain since he was in the emergency department. His S1 and S2 with no rubs. Regular rate and rhythm. Troponins have been negative. Echocardiogram showed LVEF of 6065%, moderate diastolic dysfunction, no evidence of pulmonary hypertension. Continue telemetry Colchicine renal dosing Qualifiers: Chest pain type: other chest pain Qualified Code(s): R07.89 - Other chest pain; R07.8 - Other chest pain (6) Hyperlipidemia Current Visit: Yes Status: Chronic Assessment and plan: Chronic. Continue home medications. Qualifiers: Hyperlipidemia type: unspecified Qualified Code(s): E78.5 - Hyperlipidemia , unspecified (7) Leukocytosis Current Visit: Yes Status: Resolved Assessment and plan: Resolved. WBC count 10.3. Qualifiers: Leukocytosis type: unspecified Qualified Code(s): D72.829 - Elevated white blood cell count, unspecified - Time Spent With Patient less than 15 minutes - Subjective Interval history: Patient reports sudden onset 10 out of 10 back pain, low back pain and pain in bilateral shoulders for 1-2 days apart into the emergency department. He describes it as sharp and causing him and have shortness of breath, as well as increasing pain with inspiration or when he was lying supine. He is a smoker. He says he is not interested in quitting. He has had a pneumonia vaccine in the past. Patient states that he has had multiple falls at home since December when he stopped his chemotherapy. There is a family member at bedside who says the patient has been falling since at least July of last year. About 3:00 today, patient fell in his room. It was unwitnessed. He appears to only have a skin tear to his right wrist. He has no abrasions or lacerations or hematomas noted. He denies any pain or injury. He denies hitting his head. He has adequate range of motion to all extremities without pain. Neuro checks have been ordered. He has been seen by physical therapy and they recommended continued therapy, as well as therapy at home. - Constitutional Vitals: Temp Pulse Resp BP Pulse Ox 98.4 F 60 15 125/82 100 04/20/17 16:03 04/20/17 16:03 04/20/17 16:03 04/20/17 16:03 04/20/17 16:03 General appearance: Present: cooperative, A&O X 3, pleasant, no acute distress, obese, answers questions appropriately - Head Head exam: Present: normal inspection - Eye Eye exam: Present: EOMI, normal appearance, conjuntiva pink. Absent: nystagmus - ENT ENT exam: Present: mucous membranes moist, normal exam - Neck Neck exam general surgery: Present: normal inspection. Absent: lymphadenopathy , tenderness - Respiratory Respiratory exam: Present: CTAB. Absent: rales, respiratory distress, rhonchi, stridor, wheezes - Cardiovascular Cardiovascular exam: Present: RRR, +S1, +S2. Absent: bradycardia, clicks, diastolic murmur, gallop, systolic murmur, tachycardia - GI/Abdominal GI/Abdominal exam: Present: normal bowel sounds, soft. Absent: hepatomegaly, tenderness - Extremities Exam Extremities exam: Present: warm, radial pulses palpable and symetrical. 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 - Neurological Exam Neurological exam: Present: alert, oriented X3, no focal deficits, strengths equal and symetr throughout. Absent: facial droop, speech deficit Internal Medicine: Result - Labs CBC & Chem 7: 04/20/17 04:17 04/20/17 07:58 Labs: Short CBC 04/20/17 Range/Units 04:17 WBC 10.7 (4.3-11.1) K/mcL Hgb 11.5 L (12.9-16.9) g/dL Hct 32.7 L (37.5-50.1) % Plt Count 311 (140-400) K/mcL Neutrophils # 9.2 H (1.6-8.9) K/mcL BMP 04/20/17 04/20/17 04:17 07:58 Sodium 126 L 128 L Potassium 4.5 4.8 H Chloride 94 L 96 L Carbon Dioxide 21 19 BUN 35 H 35 H Creatinine 2.82 H 2.72 H Glucose 110 H 104 H Calcium 9.5 9.5 Liver Function 04/20/17 Range/Units 04:17 Total Bilirubin 0.5 (0.2-1.2) mg/dL AST 13 (5-34) Units/L ALT 11 (0-55) Units/L Alkaline Phosphatase 78 (38-126) Units/L Albumin 3.4 L (3.5-5.0) g/dL Urine 04/19/17 Range/Units 21:20 Urine Color Yellow (Yellow) Urine Clarity Clear (Clear) Urine pH 6.0 (5.0-8.0) pH Units Ur Specific [place] 1.012 (1.010-1.025) Urine Protein 100 H (Neg-Trace) mg/dL Urine Glucose (UA) Normal (Normal) mg/dL - ABG Interpretation ABG results: PT/INR, D-dimer PT 10.7 Seconds (9.4-12.1) 04/19/17 10:42 D-Dimer 1439 ng/mLFEU (0-500) H 04/19/17 09:15 - Impressions Impressions Retroperitoneum Ultrasound 04/19/17 21:00 IMPRESSION: 1. Enlarged prostate. 2. Increased postvoid bladder volume suggestive of bladder outlet obstruction by the enlarged prostate. 3. Unremarkable ultrasound of the kidneys . D/ / Lino Alaniz MD / Lino Alaniz MD Interpreting Provider: Lino Alaniz MD - VTE Documentation of Mechanical Device: Graduated compression elastic hosiery Consult Discharge Plan - Plan [facility]errals: [facility] [Primary Care Provider] -
[2017-04-21 04:58] LABS: Basophils % 0.4 %; Eosinophils # 0.4 K/mcL (0.0-0.6); Eosinophils % 5.3 %; Hematocrit 34.2 % (37.5-50.1); Hemoglobin 11.7 g/dL (12.9-16.9); Immature Granulocytes % 0.6 % (0-4); Lymphocytes # 1.4 K/mcL (0.6-4.6); Lymphocytes % 19.4 %; Mean Corpuscular HGB Conc 34.2 g/dL (31.6-35.5); Mean Corpuscular Hemoglobin 30.6 pg (28.0-33.3); Mean Corpuscular Volume 89.5 fL (83.0-100.0); Mean Platelet Volume 9.1 fL (9.4-12.4); Monocytes # 0.7 K/mcL (0.0-1.3); Monocytes % 9.6 %; Neutrophils # 4.5 K/mcL (1.6-8.9); Platelet Count 336 K/mcL (140-400); Red Blood Count 3.82 M/mcL (4.19-5.50); Red Cell Distribution Width 12.8 % (11.5-14.5); Segmented Neutrophils % 64.7 %
[2017-04-21 05:21] LABS: Calcium 9.3 mg/dL (8.6-10.8); Magnesium 1.9 mg/dL (1.6-2.6); Phosphorous 3.5 mg/dL (2.3-4.7); Potassium 4.4 mEq/L (3.5-4.5); Uric Acid 6.5 mg/dL (3.5-7.2)
[2017-04-21 05:42] LABS: Thyroid Stimulating Hormone 1.555 mcIU/mL (0.350-4.840)
[2017-04-21] MEDS: *HR* Heparin 5,000 UNIT/ML VIAL SQ SCH (06:11)
--- NOTE | 2017-04-21 06:55 | Venous Imaging Report ---
LE Venous Duplex Patient Name:Amy Loya Order Number:[id number] Procedure Date:04/19/2017 Date:2Age:76 yrs Gender:Male Location:[facility] ED Room #: Medical Care Evaluation Specialist:Nate Hernández, JAMAAL Referring MD:Seth Teran CNP digital ad trafficker:[facility] Osbaldo MD:Alexander Bermudez MD Primary Indications:Elevated d-dimer Secondary Indications: Risk Factors Yes/No None Impressions: Normal bilateral lower extremity deep and superficial venous exam. Recommendations: After imaging the patient returned to their room. Findings Venous Duplex Results: Right: Venous imaging of the lower extremity reveals full patency and normal vessel compressibility of the right distal iliac, right common femoral, right superficial femoral, right popliteal, right posterior tibial, right peroneal, right great saphenous and right lesser saphenous. Doppler signals in the evaluated veins were normal. Left: Venous imaging of the lower extremity reveals full patency and normal vessel compressibility of the left distal iliac, left common femoral, left superficial femoral, left popliteal, left posterior tibial, left peroneal, left great saphenous and left lesser saphenous. Doppler signals in the evaluated veins were normal. Prior Study: No prior study available for comparison. Lower Extremity Venous Duplex Side Vein Compress Spontaneous Flow Augment Diameter (cm) Depth (cm) Right Distal Iliac Normal Yes Phasic Yes Right Common Femoral Normal Yes Phasic Yes Right Superficial Femoral Normal Yes Phasic Yes Right Popliteal Normal Yes Phasic Yes Right Posterior Tibial Normal Yes Phasic Yes Right Peroneal Normal Yes Phasic Yes Right Great Saphenous Normal Yes Phasic Yes Right Lesser Saphenous Normal Yes Phasic Yes Left Distal Iliac Normal Yes Phasic Yes Left Common Femoral Normal Yes Phasic Yes Left Superficial Femoral Normal Yes Phasic Yes Left Popliteal Normal Yes Phasic Yes Left Posterior Tibial Normal Yes Phasic Yes Left Peroneal Normal Yes Phasic Yes Left Great Saphenous Normal Yes Phasic Yes Left Lesser Saphenous Normal Yes Phasic Yes Updated by Alexander Bermudez MD on 04/21/2017 6:49:03 AM electronically signed on 04/21/2017 6:49:15 AM with status of Final
[2017-04-21] MEDS: Colchicine 0.6 MG TABLET PO SCH (07:41)
[2017-04-21] MEDS: 0.9 % Sodium Chloride 1,000 ML IVC SCH (07:41)
--- NOTE | 2017-04-21 10:57 | Nephrology Consult Note ---
Date of Encounter: 04/21/17 Time of Encounter: 10:54 Assessment and Plan (1) Acute kidney injury superimposed on chronic kidney disease Current Visit: Yes Status: Acute Kidney function already improving-Scr now 2.58 from 2.77 and GFR 24 from 23. Baeline Scr 1.3-1.9 Will proceed with both acute and chronic kidney workup-see orders Patient wanting to be discharged Advised to f/u with Dr Noguera in 2-4 weeks with a BMP one week after discharge. (2) Pericarditis Current Visit: Yes Status: Acute per cardiology team Qualifiers: Pericarditis type: unspecified type Chronicity: acute Qualified Code(s): I30.9 - Acute pericarditis, unspecified (3) Frequent falls Current Visit: Yes Status: Chronic per primary team History of Present Illness - Reason for Consult Consult date: 04/21/17 - Chief Complaint chest pain, MARIO, frequent falls - History of Present Illness Mr. Loya is a 76 year old male with a PMH of throat cancer, hyperlipidemia, and hypertension. He reports being a current smoker, smoking 1-1/2 packs per day Patient presened to the ED with chief complaint of chest pain. Patient states chest pain was much worse in onset and he described it as a stabbing pain which he has never had before that radiated to his left shoulder and neck. While hospitalized patient's kidney function worsened. He denies any CKD however review of old labs show a baseline Scr of 1.3-1.9. Patient denies ever seeing a antitank assault gunner; [facility] 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) - Social History Smoking Status: Current every day smoker Packs per day: 1 1/2 PPD Smokeless Tobacco Status: No Alcohol use: rarely Drug use: none - Family History Mother Race: Family Member Ethnicity: Non- Living Status: Age at : 63 Cause of : MO Hx Family Cardiac Disorders: Yes (MO, HD) Hx Family Respiratory Disorders: No Hx Family Cancer: Yes (Lung Cancer) Hx Family GI Disorders: No Hx Family Endocrine Disorder: Yes (DM) Hx Family Neuromuscular Disorders: No Hx Family Neurologic Disorders: No Hx Family HEENT Disorders: No Hx Family Autoimmune Disorders: No Father History Unknown: Yes Race: Family Member Ethnicity: Non- Living Status: Age at : 57 Cause of : [place] Hx Family Cardiac Disorders: Yes (MO, HD) Hx Family Psychosocial Disorders: Yes (Alcohol abuse) Brother Race: Family Member Ethnicity: Non- Living Status: Age at : 69 Cause of : Stroke Hx Family Cardiac Disorders: Yes (HD, Stroke) Sister Race: Family Member Ethnicity: Non- Living Status: Age at : 69 Cause of : Lung cancer Hx Family Cancer: Yes (Lung) Medications and Allergies Multivitamin [Multi-Day Vitamins] 1 tab PO DAILY 10/22/16 [History] Acetaminophen [Tylenol] 1,000 mg PO Q6HR PRN 02/23/17 [History] Lisinopril [Zestril] 20 mg PO DAILY 02/23/17 [History] [place]-3/Dha/Epa/Fish Oil [Fish Oil 1,000 mg Softgel] 1,000 mg PO DAILY 02/23/17 [History] Amlodipine Besylate 10 mg PO DAILY 04/01/17 [History] Omeprazole 20 mg PO DAILY 04/01/17 [History] Cholecalciferol (Vitamin D3) [Dialyvite Vitamin D] 5,000 unit PO DAILY 04/19/17 [History] Allergies hydrochlorothiazide Allergy (Verified 03/21/17 07:11) Swelling of Lip/Tongue/Throat Review of Systems All Systems: reviewed and no additional remarkable complaints except as stated Constitutional: no fatigue, no fever(s) Cardiovascular: chest pain, chest pain at rest, no leg edema Respiratory: no dyspnea Neurological: frequent falls, no behavioral changes, no confusion Exam - Vital Signs Vital signs: Initial Vital Signs Temp Pulse Resp BP Pulse Ox 98.1 F 78 20 128/74 96 04/19/17 06:30 04/19/17 06:30 04/19/17 06:30 04/19/17 06:30 04/19/17 06:30 Vital Signs - Last 8 Hours Temp Pulse Resp BP Pulse Ox 04/21/17 08:05 97.5 F L 64 14 150/77 95 04/21/17 03:58 97.6 F 70 16 156/75 93 Intake and Output 04/20/17 04/21/17 04/21/17 23:59 07:59 15:59 Intake Total 1000 / 1000 Output Total 700 / 700 1150 / 1150 300 / 300 Balance -700 / -700 -150 / -150 -300 / -300 Intake: IV Fluids 1000 / 1000 0.9 % Sodium Chloride 1, 1000 / 1000 000 ML @ 75 mls/hr IVC . [id number] [id number] Rx#: [id number] Output: Urine 700 / 700 1150 / 1150 300 / 300 Other: Meal Breakfast Percent of Meal Consumed 70% Stool Size Large Stool Color Brown # Voids 1 # Bowel Movements 1 Weight 68.901 kg Patient Weight 04/21/17 23:59 Weight 68.901 kg - General Appearance General appearance: well-developed, well-nourished EENT: ATNC, mucous membranes moist, hearing intact, vision intact Neck: supple Respiratory: clear Cardiology: no edema, normal S1, normal S2 Gastrointestinal: no tenderness, no guarding Integumentary: warm and dry Neurologic: alert and oriented x3 Psychiatric: mood/affect appropriate, cooperative Results - Lab Results 04/21/17 04:02 04/21/17 04:02 Most recent lab results Calcium 9.3 mg/dL (8.6-10.8) 04/21/17 04:02 Phosphorus 3.5 mg/dL (2.3-4.7) 04/21/17 04:02 Magnesium 1.9 mg/dL (1.6-2.6) 04/21/17 04:02 Urine Creatinine 51 mg/dL 04/19/17 21:20 Urine Sodium < 20.0 mEq/L 04/19/17 21:20 Consult Discharge Plan - Plan [facility]errals: [facility] [Primary Care Provider] -
--- NOTE | 2017-04-21 13:36 | Discharge Summary ---
Date of Encounter: 04/21/17 Time of Encounter: 09:00 - Discharge Diagnosis (1) Pericarditis Priority: Primary Status: Acute Comments: Patient has small pericardial effusion found on echocardiogram. Patient is being treated with 0.3 mg colchicine. He is unable to have anti-inflammatory Motrin due to renal function. Troponin was negative 3. EKG was normal sinus rhythm. VQ scan was negative for PE. Patient will need to take colchicine for 3 months. Patient had TTE while he was here, normal EF with moderate diastolic dysfunction. Patient will need to follow up in one week with [facility]. They will call him for an appointment. He denies chest pain yesterday or today. And he denies back pain as well. He says that he can lie supine in his bed. He said when he was admitted he was unable to take a deep breath or lie supine. Qualifiers: Pericarditis type: unspecified type Chronicity: acute Qualified Code(s): I30.9 - Acute pericarditis, unspecified (2) Frequent falls Priority: Secondary Status: Chronic Comments: Patient reports long history of frequent falls. He had an inpatient fall yesterday. It was unwitnessed. He has no injuries. He was assessed at the time and had no visible injuries and denied pain. He denies hitting his head. He said that he accidentally urinated in the floor when he was using the urinal , when he stood up he slipped in the urine. He was reassessed again today. He remains pain-free and there are no bruises or abrasions noted. Patient will have home health with PT and OT at home. (3) Smoker Priority: Secondary Status: Acute Comments: I have discussed smoking cessation last 2 days with the patient. He is uninterested. He says this is all he has left and he is not willing to give it up. (4) DVT prophylaxis Priority: Secondary Status: Acute Comments: Heparin subcutaneous daily (5) Chest pain Priority: Secondary Status: Resolved Comments: Patient reports sudden onset chest and back pain. It was worse with deep inspiration and trying to lie supine. Pain was resolved in the emergency department. He was found to have pericarditis and small effusion. This chest pain was consistent with pericarditis. He was seen by cardiology and they have signed off. He will take colchicine 0.3 mg and will need to have a follow-up CAYDEN in a week to reevaluate the effusion. He was not able to have ibuprofen due to his renal function. [facility] will coordinate the appointments. Patient denies any chest pain since he was in the emergency department. S1 and S2 are heard with regular rate and rhythm. There are no rubs gallops or clicks. Troponins have been negative. Echocardiogram showed LVEF of 60-65%, moderate diastolic dysfunction, no evidence of pulmonary hypertension. Qualifiers: Chest pain type: other chest pain Qualified Code(s): R07.89 - Other chest pain; R07.8 - Other chest pain (6) Hyperlipidemia Priority: Secondary Status: Chronic Comments: Chronic. Continue home medications. Qualifiers: Hyperlipidemia type: unspecified Qualified Code(s): E78.5 - Hyperlipidemia , unspecified (7) Leukocytosis Priority: Secondary Status: Resolved Comments: Resolved. Labs within normal limits. Qualifiers: Leukocytosis type: unspecified Qualified Code(s): D72.829 - Elevated white blood cell count, unspecified - Discharge Medications Prescriptions: Atorvastatin [Lipitor] 40 mg PO HS #30 tablet Colchicine [Colcrys] 0.6 mg PO DAILY #30 tablet Home Medications: Multivitamin [Multi-Day Vitamins] 1 tab PO DAILY 10/22/16 [History] Acetaminophen [Tylenol] 1,000 mg PO Q6HR PRN 02/23/17 [History] Lisinopril [Zestril] 20 mg PO DAILY 02/23/17 [History] [place]-3/Dha/Epa/Fish Oil [Fish Oil 1,000 mg Softgel] 1,000 mg PO DAILY 02/23/17 [History] Amlodipine Besylate 10 mg PO DAILY 04/01/17 [History] Omeprazole 20 mg PO DAILY 04/01/17 [History] Cholecalciferol (Vitamin D3) [Dialyvite Vitamin D] 5,000 unit PO DAILY 04/19/17 [History] Atorvastatin [Lipitor] 40 mg PO HS #30 tablet 04/21/17 [Rx] Colchicine [Colcrys] 0.6 mg PO DAILY #30 tablet 04/21/17 [Rx] Allergies/Adverse Reactions: Allergies hydrochlorothiazide Allergy (Verified 03/21/17 07:11) Swelling of Lip/Tongue/Throat Procedures/tests Complete & Pending: Procedures Performed prior 72 hours Category Date Time Status Retroperitoneal Ultrasound - Complete [US Exams 04/19/17 21:00 Completed retroperitoneal comp] [US] Routine US retroperitoneal comp [US] Stat Exams 04/21/17 11:04 Ordered VQ Scan [NM pul vent and perfuse] [NM] Stat Exams 04/19/17 10:35 Completed EKG [ECG 12 lead ECG] [ECG] Routine Y 04/19/17 14:45 Completed Venous Doppler [EV venous imaging LE BI] Routine Y 04/19/17 12:09 Completed Date of admission: 04/19/17 09:08 Primary care physician: [facility] Consults: 04/19/17 11:54 Consult to Manufacturing Automation Engineer [CONS] Routine Reason for SW Consult: multiple falls at home, possible home O2 need, possible rehab placement 04/19/17 12:06 Consult to Occupational Therapy [CONS] Routine Comment: Evaluate, develop and implement POC Reason for Consult: Patient has hx of repeated falls at home Consult to Physical Therapy [CONS] Routine Comment: Evaluate, develop and implement POC Reason for Consult: Patient has hx of repeated falls at home 04/20/17 08:28 Consult to Nephrology [CONS] Routine Consulting Provider: Kidney Rajni/JADA/ROSS/NICOLLE Reason for Consult: worsening renal function, Creat 2.82, GFR 22. Retroperitoneal US shows enlarged prostate with probable obstruction. Call Completed: No Discharging clinician: Treva Reinoso Anticipated date of discharge: 04/21/17 - Patient Status Disposition: Home Health Service Condition: Good Functional capacity at discharge: independent ambulation Overall status at discharge: patient is back to baseline - Discharge Instructions Follow Up With: [facility] [Primary Care Provider] - Additional Instructions: Please follow up with cardiology and nephrology as scheduled. Start your new medications tomorrow and the rest of your home medications as you normally would. Return to the ER as needed for any returning pain or for any other concerning symptoms or problems. Have labs drawn next week. - Diet and Activity Activity: as per physical therapy, increase activity as tolerated Diet: low salt diet Hospital course: Mr. Loya is a 76 year old male with history of hyperlipidemia, hypertension. Patient presented to the [facility] for chest pain, he was transferred here to the emergency department. He reports pleuritic type chest pain and back pain that resolved when he got to the emergency department was given medication. He said the pain increased with deep inspiration and when he would try to lie supine. He was found to have a small pericardial effusion and is taking colchicine 0.3 mg by mouth daily. He is not able to have ibuprofen due to renal function. Patient denies having any renal problems prior to this visit and does not see a rectifying operator. He denies any chest pain and says that he is able to breathe and move freely now. S1-S2 are heard with regular rate and rhythm, no rubs, clicks, or gallops.. Lung sounds are clear anteriorly and posteriorly. There is no pain with deep inspiration. Patient was seen by cardiology and had a CAYDEN done that showed normal EF with moderate diastolic dysfunction and a small pericardial effusion without tamponade. Patient will need to follow up with cardiology for repeat TTE to reassess pericarditis/ effusion. [facility] will ordinate this with the patient Patient's creatinine has been elevated since arrival. It has actually improved today. GFR is up to 24 as well. Urine was negative urine culture was negative. Serum osmolality has returned to normal. Had a retroperitoneal ultrasound that showed an enlarged prostate. His had an increase post void bladder volume suggestive of bladder outlet obstruction by the enlarged prostate. Ultrasound of the kidneys was unremarkable. He was seen by nephrology today. Serum creatinine is improving to 2.58 today from 2.77 yesterday. Baseline serum creatinine is 1.3-1.9. Nephrology has ordered a workup that will be done outpatient. He will follow up with Dr. John in 2-4 weeks and I will order a BMP for 1 week after discharge. Patient has had increasing falls at home. He did also have a fall inpatient. He said that he was using a urinal and accidentally urinated in the floor. He said when he tried to stand up he slipped in the urine and fell. There was no injury at the time of the incident, he denied pain. He has had no visible injuries on reassessment today. He denies pain and he denies hitting his head. Neuro checks were completed for several hours and were negative. He did have a small skin tear to his right wrist that was bandaged by nursing. Patient is exceptionally anxious to go home. He does not want any more testing done. He says that he is 76 years old and as long as we keep nothing by mouth we will keep finding things wrong with him. He will have the outpatient testing done as described above. He will continue to have PT and OT and nursing services at home per home health. Patient is stable and appropriate for discharge. Time spent discussing smoking cessation with patient: 3 to 10 minutes - Time Spent with Patient Total time spent providing and/or coordinating discharge services: Less than 30 minutes - Constitutional Vitals: Temp Pulse Resp BP Pulse Ox 97.8 F 66 16 151/82 90 04/21/17 12:34 04/21/17 12:34 04/21/17 12:34 04/21/17 12:34 04/21/17 13:23 General appearance: Present: cooperative, A&O X 3, pleasant, no acute distress, obese, answers questions appropriately - Head Head exam: Present: atraumatic, normal inspection - Eye Eye exam: Present: EOMI, normal appearance, PERRL, conjuntiva pink - ENT ENT exam: Present: mucous membranes moist, normal exam - Neck Neck exam general surgery: Present: full ROM, normal inspection. Absent: lymphadenopathy, tenderness - Respiratory Respiratory exam: Present: decreased breath sounds, CTAB. Absent: chest wall tenderness, rales, respiratory distress, rhonchi, stridor, wheezes - Cardiovascular Cardiovascular exam: Present: RRR, +S1, +S2. Absent: diastolic murmur, systolic murmur - GI/Abdominal GI/Abdominal exam: Present: normal bowel sounds, soft. Absent: hepatomegaly, tenderness - Neurological Exam Neurological exam: Present: alert, oriented X3, no focal deficits, strengths equal and symetr throughout. Absent: facial droop, speech deficit - VTE Documentation of Mechanical Device: Graduated compression elastic hosiery
[2017-04-21 14:56] VITALS: BP 154/78
--- NOTE | 2017-04-21 15:46 | Physician Discharge Referral ---
Home Health/Hosp Referral Info Transfer to: Home Health Provider in Charge Post Discharge: PCP - Diagnosis (1) Pericarditis Priority: Primary Status: Acute (2) Frequent falls Priority: Secondary Status: Chronic (3) Smoker Priority: Secondary Status: Acute (4) DVT prophylaxis Priority: Secondary Status: Acute (5) Chest pain Priority: Secondary Status: Resolved (6) Hyperlipidemia Priority: Secondary Status: Chronic (7) Leukocytosis Priority: Secondary Status: Resolved - Respiratory Orders Oxygen / L per min Smoking Cessation: Smoking cessation has been advised. For more information, call the [place] Tobacco Quit Line at 6-787-RLSG-NOW. - Diet/Nutrition Diet/Nutrition Orders: Regular - Activity Activity Orders: Up ad raman - Services Needed Following services are medically necessary services: Nursing, Home Health Aide, Physical Therapy, Occupational Therapy - Transfer Medications Prescriptions: Atorvastatin [Lipitor] 40 mg PO HS #30 tablet Colchicine [Colcrys] 0.6 mg PO DAILY #30 tablet Home Medications: Multivitamin [Multi-Day Vitamins] 1 tab PO DAILY 10/22/16 [History] Acetaminophen [Tylenol] 1,000 mg PO Q6HR PRN 02/23/17 [History] Lisinopril [Zestril] 20 mg PO DAILY 02/23/17 [History] [place]-3/Dha/Epa/Fish Oil [Fish Oil 1,000 mg Softgel] 1,000 mg PO DAILY 02/23/17 [History] Amlodipine Besylate 10 mg PO DAILY 04/01/17 [History] Omeprazole 20 mg PO DAILY 04/01/17 [History] Cholecalciferol (Vitamin D3) [Dialyvite Vitamin D] 5,000 unit PO DAILY 04/19/17 [History] Atorvastatin [Lipitor] 40 mg PO HS #30 tablet 04/21/17 [Rx] Colchicine [Colcrys] 0.6 mg PO DAILY #30 tablet 04/21/17 [Rx] Allergies/Adverse Reactions: Allergies hydrochlorothiazide Allergy (Verified 03/21/17 07:11) Swelling of Lip/Tongue/Throat Certification: Further, I certify that my clinical findings support that this patient is homebound (i.e. absences from home require considerable and taxing effort and are for medical reasons or episcopalian services or infrequently or short duration when for other reasons) because: Homebound Reason: Patient requires assistance of a person or device to safely leave home Attestation: My signature below is to certify that this patient is under my care and that I, or nurse practitioner, or a physician's casino assistant manager working with me, has a face-to -face encounter with this patient.
[2017-04-23 05:38] LABS: Kappa Qnt Free Light Chains 5.46 mg/dL (0.33-1.94); Lambda Qnt Free Light Chains 3.24 mg/dL (0.57-2.63)
[2017-04-23 10:34] LABS: ANA IgG by ELISA DETECTED (None Detected)
[2017-04-23 11:27] LABS: Complement Component 4 43 mg/dL (10-40)
[2017-04-23 11:28] LABS: Complement Component 3 120 mg/dL (88-201)
[2017-04-25 08:36] LABS: ANA IgG IFA Titer DUAL PATTERN (<1:40)
== END 2017-04-21 18:00 | disposition home health service (06) ==
LOC: EMEROO 06:29 → 2NENU 06:29 → 3BNU 16:10
PROVIDERS: ADMIT Internal Medicine; ATTEND Internal Medicine

== ENCOUNTER 2017-08-14 09:50 | Inpatient (IN) ==
[2017-08-14] MEDS ORDERED: Levofloxacin 750 MG/150 ML 750 MG/150 ML BAG IVPB ONE (09:54)
[2017-08-14] MEDS ORDERED: methylPREDNISolone 125 MG/2 ML VIAL IVP ONE (09:54)
[2017-08-14] MEDS ORDERED: Ipratropium/Albuterol Neb 3 ML IH ONE (09:55)
--- NOTE | 2017-08-14 09:59 | Emergency Department Note ---
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 Patient is brought in by EMS for shortness of breath. EMS states he was 81% at home. Patient states he was recently treated for pneumonia by his PCP Dr. eWber 3 days ago. Patient does not know the name of antibiotic is placed on. Patient does not remember how long he was short of breath prior to seen Dr. Weber. Patient states she has no change in sputum color. Patient is on Lasix but is on aware of why he is on Lasix at this time. Patient is a 1.5 packs per day smoker. Patient states she quit this morning - Related Data Home Medications Medication Instructions Recorded Confirmed Multivitamin [Multi-Day Vitamins] 1 tab PO DAILY 10/22/16 08/11/17 Acetaminophen [Tylenol] 1,000 mg PO Q6HR PRN 02/23/17 08/11/17 [place]-3/Dha/Epa/Fish Oil [Fish Oil 1,000 mg PO DAILY 02/23/17 08/11/17 1,000 mg Softgel] Amlodipine Besylate 10 mg PO DAILY 04/01/17 08/11/17 Omeprazole 20 mg PO DAILY 04/01/17 08/11/17 Cholecalciferol (Vitamin D3) 5,000 unit PO DAILY 04/19/17 08/11/17 [Dialyvite Vitamin D] Furosemide [Lasix] 40 mg PO DAILY 07/04/17 08/11/17 Flonase 1 spray NS DAILY 08/11/17 08/11/17 Furosemide [Lasix] 20 mg PO QPM 08/11/17 08/11/17 Metoprolol [Lopressor] 25 mg PO DAILY 08/11/17 08/11/17 Potassium Chloride [Klor-Con 10] 10 meq PO BID 08/11/17 08/11/17 Spironolactone [Aldactone] 12.5 mg PO DAILY 08/11/17 08/11/17 Previous Rx's Medication Instructions Recorded Atorvastatin [Lipitor] 40 mg PO HS #30 tablet 04/21/17 Amoxicillin/Clavulanate [Augmentin] 875 mg PO BIDWM #14 tablet 08/11/17 Allergies Allergy/AdvReac Type Severity Reaction Status Date / Time hydrochlorothiazide Allergy Swelling Verified 07/04/17 10:36 of Lip/Tongue/Throat All systems ED: reviewed and negative except as stated. Review of Systems: As Per HPI Constitutional: Reports: weakness. Denies: fever, chills Eyes: Denies: vision change ENT ED: Reports: congestion Cardiovascular: Reports: dyspnea on exertion. Denies: chest pain, palpitations , syncope Respiratory: Reports: cough Gastrointestinal: Denies: abdominal pain, nausea, vomiting, diarrhea Genitourinary: Denies: urgency, dysuria Musculoskeletal: Denies: back pain Integumentary: Denies: rash Neurological: Denies: headache Psychiatric: Reports: anxiety Endocrine: Reports: fatigue Hematological/Lymphatic: Denies: easy bleeding Past Medical History - Past Medical History Attestation: Yes The following information was validated with the patient. 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 Patient is in acute distress. Patient has O2 sat of 80% on 4 L. - General Limitations: no limitations General appearance: alert, in no apparent distress - Head Head exam: atraumatic - Eye Eye exam: Present: normal appearance, PERRL, EOMI - ENT ENT exam: normal exam, normal oropharynx, mucous membranes moist - Neck Neck exam: Present: normal inspection, full ROM, trachea midline - Chest Chest inspection: Present: normal inspection, symmetric chest wall rise - Respiratory Respiratory exam: Present: normal lung sounds bilaterally, respiratory distress. Absent: wheezes - Cardiovascular Cardiovascular exam: Present: tachycardia - Abdominal Exam Abdominal exam: Present: soft, Non-Tender. Absent: tenderness, distention, guarding, rebound, rigidity - Extremities Exam Extremities exam: Present: normal inspection, full ROM, normal capillary refill. Absent: tenderness, pedal edema - Expanded Lower Extremity Exam Hip/Pelvis exam: Present: normal inspection, full ROM Upper leg exam: Present: normal inspection, full ROM Knee exam: Present: normal inspection, full ROM Lower leg exam: Present: normal inspection, full ROM Ankle exam: Present: normal inspection, full ROM Foot/toe exam: Present: normal inspection, full ROM Neurovascular/Tendon exam: Absent: motor deficit, sensory deficit, tendon deficit - Back Exam Back exam: Present: normal inspection, full ROM, tenderness, CVA tenderness (L) - Neurological Exam Neurological exam: Present: alert, oriented X3 - Skin Skin exam: Present: warm, dry, intact, normal color Course - Consultations Consultation #1: Dr. Tompkins has accepted pt for admission Time: 12:01 Vital Signs Temperature 97.8 F 08/14/17 09:51 Pulse Rate 100 08/14/17 09:51 Respiratory Rate 24 08/14/17 09:51 Blood Pressure 160/87 08/14/17 09:51 O2 Sat by Pulse Oximetry 88 08/14/17 09:51 Temperature 97.8 F 08/14/17 12:51 Pulse Rate 109 08/14/17 12:51 Respiratory Rate 20 08/14/17 12:51 Blood Pressure 137/73 08/14/17 12:51 O2 Sat by Pulse Oximetry 91 08/14/17 12:51 Oxygen Delivery Oxygen Delivery Nasal Cannula Shortness of Breath/Dyspnea - [facility] Narrative Medical decision making narrative: Patient concern for sepsis secondary to pneumonia, PE, CHF, renal insufficiency. Patient's breathing and O2 sats Better after DuoNeb treatment. Patient maintained O2 sats on O2 at 4 L at 91%. Chest x-ray shows pulmonary vascular congestion but no consolidations. EKG initially showed some ischemia in the lateral leads V5 patient's tachycardic and sinus rhythm currently in normal sinus rhythm still has depression in V5 on repeat EKG 40 minutes later. Patient's labs show renal insufficiency that is chronic as well as anemia but patient is at his baseline in both areas. Patient has no elevation of troponin but patient's BNP is elevated just under 2000. Patient is not having any chest pain. Patient has bilateral lower extremity pitting edema. Patient being admitted for congestive heart failure causing shortness of breath. Patient has COPD exacerbation, and after DuoNeb therapy patient has a wet sounding cough that sounds very rhonchus. Patient was started on levofloxacin IV for possible pneumonia prophylaxis. Patient was accepted for admission by Dr. Tompkins the hospitalist - Lab Data Lab results reviewed: Yes I reviewed the patient's lab results. Lab results narrative: Short CBC 08/14/17 Range/Units 10:10 WBC 5.7 (4.3-11.1) K/mcL Hgb 11.2 L (12.9-16.9) g/dL Hct 34.5 L (37.5-50.1) % Plt Count 252 (140-400) K/mcL Neutrophils # 3.7 (1.6-8.9) K/mcL BMP 08/14/17 Range/Units 10:10 Sodium 136 (136-145) mEq/L Potassium 3.4 L (3.5-4.5) mEq/L Chloride 101 (98-109) mEq/L Carbon Dioxide 26 (19-29) mEq/L BUN 25 (8-26) mg/dL Creatinine 2.53 H (0.72-1.25) mg/dL Glucose 95 (70-99) mg/dL Calcium 8.9 (8.6-10.8) mg/dL Cardiac Enzymes 08/14/17 Range/Units 10:10 Troponin I 0.03 (0-0.03) ng/mL Result diagrams: 08/14/17 10:10 08/14/17 10:10 Lab Results 08/14/17 08/14/17 08/14/17 Range/Units 10:10 10:10 10:10 WBC 5.7 (4.3-11.1) K/mcL RBC 3.95 L (4.19-5.50) M/mcL Hgb 11.2 L (12.9-16.9) g/dL Hct 34.5 L (37.5-50.1) % MCV 87.3 (83.0-100.0) fL MCH 28.4 (28.0-33.3) pg MCHC 32.5 (31.6-35.5) g/dL RDW 14.7 H (11.5-14.5) % Plt Count 252 (140-400) K/mcL MPV 9.1 L (9.4-12.4) fL Immature Gran % 0.4 (0-4) % Seg Neutrophils % 64.4 % Lymphocytes % 20.0 % Monocytes % 8.6 % Eosinophils % 6.1 % Basophils % 0.5 % Neutrophils # 3.7 (1.6-8.9) K/mcL Lymphocytes # 1.1 (0.6-4.6) K/mcL Monocytes # 0.5 (0.0-1.3) K/mcL Eosinophils # 0.4 (0.0-0.6) K/mcL Basophils # 0.0 (0.0-0.2) K/mcL Sodium 136 (136-145) mEq/L Potassium 3.4 L (3.5-4.5) mEq/L Chloride 101 (98-109) mEq/L Carbon Dioxide 26 (19-29) mEq/L BUN 25 (8-26) mg/dL Creatinine 2.53 H (0.72-1.25) mg/dL Est GFR ( Amer) 30 L (> 60) Est GFR (Non-Af Amer) 25 L (> 60) BUN/Creatinine Ratio 10 (6-26) Glucose 95 (70-99) mg/dL Calculated Osmolality 286 (280-300) Lactic Acid 0.6 (0.5-2.2) mmol/L Calcium 8.9 (8.6-10.8) mg/dL Troponin I (0-0.03) ng/mL B-Natriuretic Peptide (0-100) pg/mL 08/14/17 08/14/17 08/14/17 Range/Units 10:10 10:10 12:02 WBC (4.3-11.1) K/mcL RBC (4.19-5.50) M/mcL Hgb (12.9-16.9) g/dL Hct (37.5-50.1) % MCV (83.0-100.0) fL MCH (28.0-33.3) pg MCHC (31.6-35.5) g/dL RDW (11.5-14.5) % Plt Count (140-400) K/mcL MPV (9.4-12.4) fL Immature Gran % (0-4) % Seg Neutrophils % % Lymphocytes % % Monocytes % % Eosinophils % % Basophils % % Neutrophils # (1.6-8.9) K/mcL Lymphocytes # (0.6-4.6) K/mcL Monocytes # (0.0-1.3) K/mcL Eosinophils # (0.0-0.6) K/mcL Basophils # (0.0-0.2) K/mcL Sodium (136-145) mEq/L Potassium (3.5-4.5) mEq/L Chloride (98-109) mEq/L Carbon Dioxide (19-29) mEq/L BUN (8-26) mg/dL Creatinine (0.72-1.25) mg/dL Est GFR ( Amer) (> 60) Est GFR (Non-Af Amer) (> 60) BUN/Creatinine Ratio (6-26) Glucose (70-99) mg/dL Calculated Osmolality (280-300) Lactic Acid 1.1 (0.5-2.2) mmol/L Calcium (8.6-10.8) mg/dL Troponin I 0.03 (0-0.03) ng/mL B-Natriuretic Peptide 1993 H (0-100) pg/mL - Radiology Data Radiology results reviewed: Yes I reviewed the patient's radiology results. Chest X-Ray 08/14/17 09:55 IMPRESSION: 1. Interstitial and likely perihilar alveolar edema suggestive of congestive heart failure given mild cardiomegaly and bilateral pleural effusions. 2. Bilateral lobe airspace opacities most likely representing atelectasis. Pneumonia could appear similar. D/ / Tylor Dean MD / Tylor Dean MD Interpreting Provider: Tylor Dean MD - EKG Data EKG attestation: Yes I reviewed and interpreted this EKG. EKG results narrative: EKG taken 08/14/2017 and 1004 hrs. shows a sinus rhythm at a rate of 95 beats minute with no acute ST elevations but shows depressions in V5. Repeat EKG taken at 1045 shows sinus tachycardia at a rate of [address] depression in V5. These EKG taken April [address] does [address] any [address] depressions as ST elevation in lead 2. Critical Care Time Critical Care Time: Yes Total Critical Care Time: 45 Attestation: Critical care performed: Time is exclusive of separately billable procedures. Time includes: direct patient care, patient reassessment, coordination of patient care, interpretation of data (laboratory data, radiology data, and respiratory data), review of patient's medical records, medical consultation and documentation of patient care. Procedures included in critical care time: Procedures excluded from critical care time: Attestation Statement - Attestation Attestation: I, Salvatore Poole DO, examined this patient [id number] and my medical decision-making was reviewed with (Dr. Serafin Jo, Resident Physician. I agree with the documented findings, disposition and treatment plan as described except to the extent set forth below. Please see my progress notes for details.
[2017-08-14 10:17] LABS: Basophils % 0.5 %; Eosinophils # 0.4 K/mcL (0.0-0.6); Eosinophils % 6.1 %; Hematocrit 34.5 % (37.5-50.1); Hemoglobin 11.2 g/dL (12.9-16.9); Immature Granulocytes % 0.4 % (0-4); Lymphocytes # 1.1 K/mcL (0.6-4.6); Mean Corpuscular HGB Conc 32.5 g/dL (31.6-35.5); Mean Corpuscular Hemoglobin 28.4 pg (28.0-33.3); Mean Corpuscular Volume 87.3 fL (83.0-100.0); Mean Platelet Volume 9.1 fL (9.4-12.4); Monocytes # 0.5 K/mcL (0.0-1.3); Monocytes % 8.6 %; Neutrophils # 3.7 K/mcL (1.6-8.9); Platelet Count 252 K/mcL (140-400); Red Blood Count 3.95 M/mcL (4.19-5.50); Red Cell Distribution Width 14.7 % (11.5-14.5); Segmented Neutrophils % 64.4 %
[2017-08-14 10:31] LABS: Calcium 8.9 mg/dL (8.6-10.8); Potassium 3.4 mEq/L (3.5-4.5)
[2017-08-14] MEDS ORDERED: Furosemide 40 MG/4 ML VIAL IVP ONE (11:02)
[2017-08-14] MEDS ORDERED: Albuterol 2.5 MG/3 ML NEBULIZER IH ONE (11:05)
--- NOTE | 2017-08-14 11:15 | Emergency Department Note ---
START Narrative - START START: 76-year-old male seen and evaluated the time of arrival. See history of present illness. EMS transported with a pulse ox of his labile except for when oxygen was applied. Patient does not use oxygen at home. He seen by his PCP within last 4 days and started on antibiotics. He is continue that antibiotic for 4 days. He does not know what the antibiotic was. It is of a history of COPD and emphysema. He does get bronchitis and pneumonia easily. Denies any active chest pain but has persistent shortness of breath and conversational dyspnea on presentation. Patient is concerning for COPD exacerbation as well as cardiac related issue as a source to symptoms here today. Chest x-ray EKG lab troponin will be ordered and collected this time. Initial dose of steroids as well as breathing treatments ordered blood cultures along with antibiotics started this time. Patient will most likely need admission the hospital for definitive management secondary to hypoxia and increased work of breathing. Routine monitors treatment course is completed. Exam is otherwise unremarkable except for diminished breath sounds bilaterally with tight aeration. He does have difficulty taking full breaths at this point. EKG was otherwise unremarkable showing intermittent tachycardia with some ischemic changes appear to be chronic at this time. No active signs of acute myocardial infarction. Patient's labs to be reviewed and chest x-ray to be reviewed at this time. Symptoms to be controlled. See detailed documentation of physical exam, medical intervention, medical decision-making and disposition of the resident physician's note 1115 Patient has increased aeration with diffuse wheezing on evaluation. Repeat set of albuterol inhalers to be given at this time. Patient's chest x-ray is still pending. Troponin labs are otherwise unremarkable except for significantly elevated BNP. Lungs do not sound significantly when the patient does not have pitting edema on exam. Lasix to be given by IV titration of this time. Kidney function appears to be at baseline. Patient will require admission once workup is completed but otherwise he is resting comfortably in the bed. Will continue monitoring symptoms as patient continues to progress. 1205 Patient feels much better after second dose of breathing treatments. Admission process to be completed for what appears to be fluid overload secondary to poorly controlled cardiacs issues and symptoms. Patient also has COPD exacerbation and possible pneumonia. Be observed here in the emergency room to the admission process is completed.
[2017-08-14] MEDS ORDERED: Naloxone 0.4 MG/ML INJ IVP PRN (12:58)
[2017-08-14] MEDS ORDERED: Ondansetron 4 MG/2 ML VIAL IVP PRN (12:58)
[2017-08-14] MEDS ORDERED: Albuterol 2.5 MG/3 ML NEBULIZER IH PRN (13:02)
--- NOTE | 2017-08-14 13:08 | Internal Med History&Physical ---
<Brittni Gloira - Last Filed: 08/14/17 14:07> Date of Encounter: 08/14/17 Time of Encounter: 13:08 Assessment and Plan (1) Respiratory failure with hypoxia Current visit: Yes Status: Acute 1 patient has been expressing increasing shortness of breath as well as worsening edema over the past few days. He was originally placed on Augmentin for pneumonia by PCP with no improvement. He is not on any supplemental oxygen at home. He did experience some increasing shortness of breath as well as wheezing this a.m. and oxygen saturation was 81%. Respiratory status improve after receiving, breathing treatments and steroids and Lasix. Hypoxia Most likely multifactorial related to exacerbation of CHFand COPD/pneumonia We will continue steroids Lasix and antibiotics and continue to wean oxygen. Qualifiers: Chronicity: acute Qualified Code(s): J96.01 - Acute respiratory failure with hypoxia (2) CHF exacerbation Current visit: Yes Status: Acute 1 o April of this year EF 60-65% with moderate diastolic dysfunction. He is on Lasix twice a day has been experiencing increasing lower extremity swelling, shortness of breath chest x-ray did show some vascular congestion as well as elevated BNP of 19 and 3. We will continue with IV Lasix 40 mg twice a day 2 she has needed titrating maintaining his to greater than 92% 3 1500 mL fluid restriction 4 monitor intake output with daily weight 5 low sodium diet 6 trend troponins 7 continues cardiac monitoring Qualifiers: Congestive heart failure type: diastolic Qualified Code(s): I50.33 - Acute on chronic diastolic (congestive) heart failure (3) COPD exacerbation Current visit: Yes Status: Acute 1 continue with oxygen titrated to maintain SPO2 greater than 92% 2 steroid taper 3 bronchodilators 4 Levaquin (4) Pneumonia Current visit: Yes Status: Acute 1 Hx COPD, increasing cough with sputum production but no change in color. No fever or chills no leukocytosis chest x-ray with bilateral bases. We will cover with Levaquin for now 2continue with O2 3 bronchodilators 4 sputum culture Qualifiers: Pneumonia type: due to unspecified organism Laterality: unspecified laterality Lung location: unspecified part of lung Qualified Code(s): J18.9 - Pneumonia, unspecified organism (5) Hypertension Current visit: No Status: Chronic 1 continue with diuretics, amlodipine and metoprolol 2 low sodium diet Qualifiers: Hypertension type: essential hypertension Qualified Code(s): I10 - Essential (primary) hypertension (6) CKD (chronic kidney disease) Current visit: No Status: Chronic 1 creatinine is 2.53 which appears to be run his baseline. We will continue to monitor creatinine, and electrolytes. 2 we will diurese patient 3 monitor intake and output daily weights 4 avoid nephrotoxins Qualifiers: Chronic kidney disease stage: stage 4 (severe) Qualified Code(s): N18.4 - Chronic kidney disease, stage 4 (severe) (7) History of pericarditis Current visit: No Status: Chronic 1 patient was diagnosed with pericarditis in April he states he has completed treatment as last checked in June pericarditis resolved (8) DVT prophylaxis Current visit: No Status: Acute Heparin subcutaneous Internal Medicine - H&P: HPI Chief complaint: Shortness of breath Admitted From: Emergency Dept Plans for Post Hospital Care: Home History of present illness: Mr. 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 According to the patient he has been expressing increasing shortness of breath he did see his oncologist Dr. Rob on at that time concern for pneumonia and was placed on Augmentin. He is taking medication as prescribed however he has been experiencing cough shortness of breath on exertion sputum production however no change in color. He denies any fevers chills nausea or vomiting. He does have a decreased appetite his weight has been steady with no unusual weight loss or weight gain. He has had increase in lower extremity swelling. He is on Lasix twice a day which he states he has been taking. He denies any home oxygen use This morning he did awaken with increasing shortness of breath , as well as wheezing. EMS were called and upon arrival his SPO2 was 81% he was given breathing treatment was transported to the ER. Upon arrival to the ER his oxygen saturation was 88% he was given again reading treatments as well as steroids saturations did improve to 93%. Lab work did not reveal no leukocytosis he did have low potassium 3.4 his lactate was 0.6 troponin was 0.03 his BNP was elevated 1992. Chest x-ray did show some vascular congestion as well as bilateral lower lobe opacities. He was given IV antibiotics as well as IV Lasix. He has been admitted for further workup evaluation. Presently patient is not really respiratory distress. His lung sounds are clear at this time. Heart sounds are regular S1-S2 with no rubs clicks, murmurs noted abdomen soft nontender he does have +2 pitting edema to lower extremities bilaterally. He is on oxygen 2 L saturating at 94-95%. He is hemodynamically stable this time. I reviewed his case with Dr. Tompkins who agrees with plan. 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) - Social History Smoking Status: Current every day smoker Smokeless Tobacco Status: No Alcohol use: none Drug use: none - Family History Mother Family Member Ethnicity: Non- Living Status: Hx Family Cardiac Disorders: Yes ([place], HD) Hx Family Respiratory Disorders: No Hx Family Cancer: Yes (Lung Cancer) Hx Family GI Disorders: No Hx Family Endocrine Disorder: Yes (DM) Hx Family Neuromuscular Disorders: No Hx Family Neurologic Disorders: No Hx Family HEENT Disorders: No Hx Family Autoimmune Disorders: No Father Family Member Ethnicity: Non- Living Status: Hx Family Cardiac Disorders: Yes ([place], HD) Brother Family Member Ethnicity: Non- Living Status: Hx Family Cardiac Disorders: Yes (HD, Stroke) Sister Family Member Ethnicity: Non- Living Status: Hx Family Cancer: Yes (Lung) Internal Medicine - H&P: Meds Multivitamin [Multi-Day Vitamins] 1 tab PO DAILY 10/22/16 [History] Acetaminophen [Tylenol] 1,000 mg PO Q6HR PRN 02/23/17 [History] [place]-3/Dha/Epa/Fish Oil [Fish Oil 1,000 mg Softgel] 1,000 mg PO DAILY 02/23/17 [History] Amlodipine Besylate 10 mg PO DAILY 04/01/17 [History] Omeprazole 20 mg PO DAILY 04/01/17 [History] Cholecalciferol (Vitamin D3) [Dialyvite Vitamin D] 5,000 unit PO DAILY 04/19/17 [History] Atorvastatin [Lipitor] 40 mg PO HS #30 tablet 04/21/17 [Rx] Furosemide [Lasix] 40 mg PO DAILY 07/04/17 [History] Amoxicillin/Clavulanate [Augmentin] 875 mg PO BIDWM #14 tablet 08/11/17 [Rx] Flonase 1 spray NS DAILY 08/11/17 [History] Furosemide [Lasix] 20 mg PO QPM 08/11/17 [History] Metoprolol [Lopressor] 25 mg PO DAILY 08/11/17 [History] Potassium Chloride [Klor-Con 10] 10 meq PO BID 08/11/17 [History] Spironolactone [Aldactone] 12.5 mg PO DAILY 08/11/17 [History] 3 Allergy/AdvReac Type Severity Reaction Status Date / Time hydrochlorothiazide Allergy Swelling Verified 07/04/17 10:36 of Lip/Tongue/Throat All Systems PM: A 10-system review of systems was performed and is negative for pertinent findings except as documented above in the HPI. - Constitutional Constitutional: no chills, no fever(s), no night sweats - EENT Eyes: no change in vision, no discharge, no pain, no photophobia Nose, mouth and throat: no dysphagia, no nasal discharge, no neck pain, no sore throat - Cardiovascular Cardiovascular ROS IM: dyspnea on exertion, edema, no chest pain, no diaphoresis , no dyspnea, no lightheadedness, no palpitations, no syncope - Respiratory Respiratory: cough, chest congestion, excessive phlegm production - Gastrointestinal Gastrointestinal: no abdominal pain, no diarrhea, no hematemesis, no hematochezia, no melena, no nausea, no vomiting - Musculoskeletal Musculoskeletal ROS IM: no numbness, no tingling - Integumentary Integumentary IM: no rash, no unusual bruising - Neurological Neurological ROS: no confusion, no convulsions, no focal weakness, no numbness, no tingling, no tremor(s) - Hematologic/Lymphatic Hematologic/Lymphatic: no easy bruising - Constitutional Vitals: Temp Pulse Resp BP Pulse Ox 97.8 F 109 20 137/73 91 08/14/17 12:51 08/14/17 12:51 08/14/17 12:51 08/14/17 12:51 08/14/17 12:51 General appearance: Present: A&O X 3, answers questions appropriately - Head Head exam: Present: atraumatic, normocephalic - Eye Eye exam: Present: PERRL, conjuntiva pink, sclera anicteric Pupils: Present: PERRL - Neck Neck exam general surgery: Present: supple, trachea midline. Absent: lymphadenopathy - Respiratory Respiratory exam: Present: CTAB. Absent: accessory muscle use, rales, rhonchi, wheezes - Cardiovascular Cardiovascular exam: Present: RRR, +S1, +S2. Absent: diastolic murmur, gallop, rubs, systolic murmur - GI/Abdominal GI/Abdominal exam: Present: normal bowel sounds, soft, no peritoneal signs. Absent: distended, tenderness - Extremities Exam Extremities exam: Present: warm, radial pulses palpable and symmetrical. Absent : calf tenderness, cyanotic, pedal edema - Neurological Exam Neurological exam: Present: CN II-XII intact, oriented X3, no focal deficits. Absent: pronater drift, facial droop, speech deficit - Skin Skin exam: Present: dry, intact Internal Med - H&P Results - Labs CBC & Chem 7: 08/14/17 10:10 08/14/17 10:10 - EKG Data EKG shows normal: sinus rhythm - EKG Data Prior EKG available for review: yes When compared to previous EKG: there is no significant change - Diagnostic Studies Other Images Additional comments: Chest X-Ray 08/14/17 09:55 IMPRESSION: 1. Interstitial and likely perihilar alveolar edema suggestive of congestive heart failure given mild cardiomegaly and bilateral pleural effusions. 2. Bilateral lobe airspace opacities most likely representing atelectasis. Pneumonia could appear similar. D/ / Tylor Dean MD / Tylor Dean MD Interpreting Provider: Tylor Dean MD <Naveen Tompkins - Last Filed: 08/14/17 16:36> Date of Encounter: 08/14/17 Internal Medicine - H&P: HPI History of present illness: Mr. Loya is a 76 year old male All Systems PM: A 10-system review of systems was performed and is negative for pertinent findings except as documented above in the HPI. - Constitutional Vitals: Temp Pulse Resp BP Pulse Ox 97.8 F 111 18 165/80 94 08/14/17 16:17 08/14/17 16:17 08/14/17 16:17 08/14/17 16:17 08/14/17 16:17 Internal Med - H&P Results - Labs CBC & Chem 7: 08/14/17 10:10 08/14/17 10:10 - Attending Attestation I independently obtained history and examined this patient and my medical decision-making was reviewed with the nurse practitioner, Brittni Gloria. I agree with the documented findings, disposition and treatment plan as described. My findings are summarized below: Patient presented to the hospital for evaluation of shortness of breath. Denies chest pain. Cough productive of which has been improving On exam his chest, sputum sentences Lung exam reveals bilateral expiratory wheezes and rales' Heart auscultation ventricular gallop rhythm Neck: Positive JVD with hepatojugular reflux Extremities with 2+ lower extremity pitting edema Plan: For CHF treated with IV Lasix, fluid restriction, sodium restricted diet, daily weights, strict I's and O For COPD exacerbation we will treat him with steroids and inhaled bronchodilators I have advised smoking cessation.
[2017-08-14] MEDS: Ipratropium/Albuterol Neb 3 ML IH SCH ×2 (16:05→20:12)
[2017-08-14] MEDS ORDERED: Potassium Chloride Elixir 20 MEQ/15 ML UDC PO ONE (16:32)
[2017-08-14] MEDS: Furosemide 40 MG/4 ML VIAL IVP SCH (17:11)
[2017-08-14] MEDS: amLODIPine 5 MG TABLET PO SCH (17:11)
[2017-08-14] MEDS: Spironolactone 25 MG TABLET PO SCH (17:11)
[2017-08-14] MEDS: methylPREDNISolone 125 MG/2 ML VIAL IM SCH (17:12)
[2017-08-14] MEDS: *HR* Heparin 5,000 UNIT/ML VIAL SQ SCH (17:12)
[2017-08-14] MEDS ORDERED: Furosemide 40 MG/4 ML VIAL IVP SCH (21:00)
[2017-08-14] MEDS: Acetaminophen 325 MG TABLET PO PRN (21:16)
[2017-08-15] MEDS: Ipratropium/Albuterol Neb 3 ML IH SCH ×7 (00:09→23:34)
[2017-08-15] MEDS: methylPREDNISolone 125 MG/2 ML VIAL IM SCH ×2 (00:28→06:04)
[2017-08-15 05:06] LABS: Hematocrit 31.9 % (37.5-50.1); Hemoglobin 10.4 g/dL (12.9-16.9); Immature Granulocytes % 0.6 % (0-4); Lymphocytes # 0.3 K/mcL (0.6-4.6); Lymphocytes % 5.7 %; Mean Corpuscular HGB Conc 32.6 g/dL (31.6-35.5); Mean Corpuscular Hemoglobin 28.3 pg (28.0-33.3); Mean Corpuscular Volume 86.9 fL (83.0-100.0); Mean Platelet Volume 9.1 fL (9.4-12.4); Monocytes # 0.1 K/mcL (0.0-1.3); Monocytes % 1.1 %; Neutrophils # 4.4 K/mcL (1.6-8.9); Platelet Count 246 K/mcL (140-400); Red Blood Count 3.67 M/mcL (4.19-5.50); Red Cell Distribution Width 14.8 % (11.5-14.5); Segmented Neutrophils % 92.6 %
[2017-08-15 05:18] LABS: Calcium 9.4 mg/dL (8.6-10.8); Magnesium 1.9 mg/dL (1.6-2.6); Potassium 3.5 mEq/L (3.5-4.5)
[2017-08-15] MEDS ORDERED: *HR* Enoxaparin 40 MG/0.4 ML SYRINGE SQ SCH (06:00)
[2017-08-15] MEDS: *HR* Heparin 5,000 UNIT/ML VIAL SQ SCH ×2 (06:04→16:45)
--- NOTE | 2017-08-15 09:34 | Internal Med Progress Note ---
Date of Encounter: 08/15/17 Time of Encounter: 09:32 - Assessment and plan (1) Hypoxemia Current Visit: Yes Status: Acute Assessment and plan: Acute hypoxic respiratory failure secondary to combination of acute COPD exacerbation due to immune he acquired pneumonia with acute diastolic CHF exacerbation Failed outpatient therapy with Augmentin Continue Levaquin day 2, Solu-Medrol, Lasix, strict I's and O's and daily weight Oxygen therapy (2) CHF (congestive heart failure) Current Visit: Yes Status: Acute Qualifiers: Congestive heart failure type: systolic Congestive heart failure chronicity : acute on chronic Qualified Code(s): I50.23 - Acute on chronic systolic ( congestive) heart failure (3) CHF exacerbation Current Visit: Yes Status: Acute Assessment and plan: Echocardiac exam shows an ejection fraction of 60-65%, moderate diastolic dysfunction Qualifiers: Congestive heart failure type: diastolic Qualified Code(s): I50.33 - Acute on chronic diastolic (congestive) heart failure (4) COPD exacerbation Current Visit: Yes Status: Acute (5) Pneumonia Current Visit: Yes Status: Acute Qualifiers: Pneumonia type: due to unspecified organism Laterality: unspecified laterality Lung location: unspecified part of lung Qualified Code(s): J18.9 - Pneumonia, unspecified organism (6) CKD (chronic kidney disease) Current Visit: No Status: Chronic Assessment and plan: Stable Qualifiers: Chronic kidney disease stage: stage 4 (severe) Qualified Code(s): N18.4 - Chronic kidney disease, stage 4 (severe) (7) History of pericarditis Current Visit: No Status: Chronic (8) Head and neck cancer Current Visit: No Status: Acute Assessment and plan: History of tongue cancer status post radiation, last treatment in December Follow-up as an outpatient with oncology (9) Hypertension Current Visit: No Status: Chronic Assessment and plan: Continue Toprol, add hydralazine as needed, continue amlodipine Qualifiers: Hypertension type: essential hypertension Qualified Code(s): I10 - Essential (primary) hypertension - Subjective Interval history: Feeling very short of breath, denies any chest pain, no abdominal pain or dysuria, no fevers overnight, no diarrhea. Nursing staff found bedbugs - Constitutional Vitals: Temp Pulse Resp BP Pulse Ox 97.5 F L 95 20 158/79 89 08/15/17 07:28 08/15/17 07:28 08/15/17 07:28 08/15/17 07:28 08/15/17 07:28 General appearance: Present: A&O X 3, answers questions appropriately - Head Head exam: Present: atraumatic, normocephalic - Eye Eye exam: Present: PERRL, conjuntiva pink, sclera anicteric Pupils: Present: PERRL - Neck Neck exam general surgery: Present: supple, trachea midline. Absent: lymphadenopathy - Respiratory Respiratory exam: Present: decreased breath sounds (Very diminished bilateral breath sounds with minimal wheezing), CTAB, wheezes. Absent: accessory muscle use, rales, rhonchi - Cardiovascular Cardiovascular exam: Present: RRR, +S1, +S2. Absent: diastolic murmur, gallop, rubs, systolic murmur - GI/Abdominal GI/Abdominal exam: Present: normal bowel sounds, soft, no peritoneal signs. Absent: distended, tenderness - Extremities Exam Extremities exam: Present: warm, radial pulses palpable and symmetrical. Absent : calf tenderness, cyanotic, pedal edema - Neurological Exam Neurological exam: Present: CN II-XII intact, oriented X3, no focal deficits. Absent: pronater drift, facial droop, speech deficit - Skin Skin exam: Present: dry, intact Internal Medicine: Result - Labs CBC & Chem 7: 08/15/17 04:46 08/15/17 04:46 Labs: Short CBC 08/15/17 Range/Units 04:46 WBC 4.7 (4.3-11.1) K/mcL Hgb 10.4 L (12.9-16.9) g/dL Hct 31.9 L (37.5-50.1) % Plt Count 246 (140-400) K/mcL Neutrophils # 4.4 (1.6-8.9) K/mcL BMP 08/15/17 04:46 Sodium 137 Potassium 3.5 Chloride 100 Carbon Dioxide 26 BUN 29 H Creatinine 2.87 H Glucose 138 H Calcium 9.4 Cardiac Enzymes 08/14/17 08/14/17 Range/Units 15:55 22:23 Troponin I 0.02 0.02 (0-0.03) ng/mL Consult Discharge Plan - Plan [facility]errals: [facility] [Primary Care Provider] -
[2017-08-15] MEDS: Furosemide 40 MG/4 ML VIAL IVP SCH ×2 (09:36→16:49)
[2017-08-15] MEDS: amLODIPine 5 MG TABLET PO SCH (09:36)
[2017-08-15] MEDS: Spironolactone 25 MG TABLET PO SCH (09:36)
[2017-08-15] MEDS: methylPREDNISolone 125 MG/2 ML VIAL IVP SCH ×3 (12:12→23:45)
--- NOTE | 2017-08-15 18:41 | Electrocardiograph Report ---
[place] [id number] Test Date: 2017-08-14 Pat Name: Amy Loya Department: 102 Room: 2A Gender: M [employer] Information Clerk: : 1940 Requested By: Salvatore Poole Order Number: [id number] Reading MD: Kemar Alegria MD Measurements Intervals [place] Rate: 95 P: 59 IA: 192 QRS: 5 QRSD: 90 T: 74 QT: 353 QTc: 406 Interpretive Statements SINUS RHYTHM LEFT ATRIAL ENLARGEMENT Poor R wave progression Electronically Signed On 08-15-2017 18:40:15 EDT by Kemar Alegria MD
--- NOTE | 2017-08-15 18:42 | Electrocardiograph Report ---
[place] [address] Test Date: 2017-08-14 Pat Name: Amy Loya Department: 102 Room: 2A Gender: M Hospice Coordinator: Marissa : 1940 Requested By: Alonzo Frank Order Number: [id number] Reading MD: Kemar Alegria MD Measurements Intervals [place] Rate: 101 P: 47 VT: 184 QRS: -3 QRSD: 88 T: 69 QT: 353 QTc: 411 Interpretive Statements SINUS TACHYCARDIA LEFT ATRIAL ENLARGEMENT Poor R wave progression Electronically Signed On 08-15-2017 18:40:58 EDT by Kemar Alegria MD
[2017-08-15] MEDS: Acetaminophen 325 MG TABLET PO PRN (20:48)
[2017-08-16] MEDS: Ipratropium/Albuterol Neb 3 ML IH SCH ×4 (03:35→16:03)
[2017-08-16 04:35] LABS: Hematocrit 34.2 % (37.5-50.1); Hemoglobin 11.2 g/dL (12.9-16.9); Mean Corpuscular HGB Conc 32.7 g/dL (31.6-35.5); Mean Corpuscular Hemoglobin 28.8 pg (28.0-33.3); Mean Corpuscular Volume 87.9 fL (83.0-100.0); Mean Platelet Volume 9.7 fL (9.4-12.4); Platelet Count 300 K/mcL (140-400); Red Blood Count 3.89 M/mcL (4.19-5.50); Red Cell Distribution Width 15.1 % (11.5-14.5)
[2017-08-16 04:56] LABS: Calcium 9.6 mg/dL (8.6-10.8); Potassium 3.4 mEq/L (3.5-4.5)
[2017-08-16] MEDS: *HR* Heparin 5,000 UNIT/ML VIAL SQ SCH (05:39)
[2017-08-16] MEDS: methylPREDNISolone 125 MG/2 ML VIAL IVP SCH ×2 (05:39→11:45)
[2017-08-16] MEDS: Spironolactone 25 MG TABLET PO SCH (08:37)
[2017-08-16] MEDS: Furosemide 40 MG/4 ML VIAL IVP SCH (08:38)
[2017-08-16] MEDS: amLODIPine 5 MG TABLET PO SCH (08:39)
[2017-08-16] MEDS ORDERED: Levofloxacin 750 MG/150 ML 750 MG/150 ML BAG IVPB SCH (09:00)
[2017-08-16 11:37] VITALS: BP 145/72
--- NOTE | 2017-08-16 14:04 | Discharge Summary ---
Date of Encounter: 08/16/17 Time of Encounter: 13:55 - Discharge Diagnosis (1) Hypoxemia Priority: Primary Status: Acute Comments: Acute hypoxic respiratory failure secondary to combination of acute COPD exacerbation due to immune he acquired pneumonia with acute diastolic CHF exacerbation (2) CHF (congestive heart failure) Priority: Primary Status: Acute Qualifiers: Congestive heart failure type: systolic Congestive heart failure chronicity : acute on chronic Qualified Code(s): I50.23 - Acute on chronic systolic ( congestive) heart failure (3) COPD exacerbation Priority: Primary Status: Acute (4) Pneumonia Priority: Primary Status: Acute Qualifiers: Pneumonia type: due to unspecified organism Laterality: unspecified laterality Lung location: unspecified part of lung Qualified Code(s): J18.9 - Pneumonia, unspecified organism (5) CKD (chronic kidney disease) Priority: Secondary Status: Chronic Qualifiers: Chronic kidney disease stage: stage 4 (severe) Qualified Code(s): N18.4 - Chronic kidney disease, stage 4 (severe) (6) History of pericarditis Priority: Secondary Status: Chronic (7) Head and neck cancer Priority: Secondary Status: Acute (8) Hypertension Priority: Secondary Status: Chronic Qualifiers: Hypertension type: essential hypertension Qualified Code(s): I10 - Essential (primary) hypertension - Discharge Medications Prescriptions: levoFLOXacin [Levaquin] 500 mg PO DAILY #4 tablet predniSONE [PredniSONE] 10 mg PO DAILY 16 Days tablet Home Medications: Multivitamin [Multi-Day Vitamins] 1 tab PO DAILY 10/22/16 [History] Acetaminophen [Tylenol] 1,000 mg PO Q6HR PRN 02/23/17 [History] [place]-3/Dha/Epa/Fish Oil [Fish Oil 1,000 mg Softgel] 1,000 mg PO DAILY 02/23/17 [History] Amlodipine Besylate 10 mg PO DAILY 04/01/17 [History] Omeprazole 20 mg PO DAILY 04/01/17 [History] Atorvastatin [Lipitor] 40 mg PO HS #30 tablet 04/21/17 [Rx] Furosemide [Lasix] 40 mg PO DAILY 07/04/17 [History] Fluticasone Propionate Nasal [Flonase] 2 spr NS DAILY PRN 08/11/17 [History] Furosemide [Lasix] 20 mg PO QPM 08/11/17 [History] Potassium Chloride [Klor-Con 10] 10 meq PO BID 08/11/17 [History] Spironolactone [Aldactone] 12.5 mg PO DAILY 08/11/17 [History] Cholecalciferol (D-3) [Vitamin D] 1,000 unit PO DAILY 08/15/17 [History] Metoprolol Succinate 25 mg PO DAILY 08/15/17 [History] Tamsulosin [Flomax] 0.4 mg PO DAILY 08/15/17 [History] levoFLOXacin [Levaquin] 500 mg PO DAILY #4 tablet 08/16/17 [Rx] predniSONE [PredniSONE] 10 mg PO DAILY 16 Days tablet 08/16/17 [Rx] Allergies/Adverse Reactions: 3 Allergy/AdvReac Type Severity Reaction Status Date / Time hydrochlorothiazide Allergy Swelling Verified 08/15/17 07:43 of Lip/Tongue/Throat Procedures/tests Complete & Pending: Procedures Performed prior 72 hours Category Date Time Status ECG 12 lead ECG [ECG] Routine Y 08/14/17 10:45 Completed Date of admission: 08/14/17 12:58 [facility] care physician: [facility] Consults: 08/15/17 13:39 Consult to Speech Therapy [CONS] Routine Comment: Evaluate, develop and implement POC Reason for Consult: pt c/o difficultly with eating and drinking. Call Completed: Yes - Patient Status Disposition: Home, Self-Care Condition: Fair Overall status at discharge: patient is back to baseline - Discharge Instructions Follow Up With: [facility] [Primary Care Provider] - Additional Instructions: Follow-up with primary care physician within the next 7 days. Complete prednisone taper, completed 4 more doses of Levaquin starting on 08/17/2017. Continue oxygen therapy. Follow-up with pulmonary services within the next 3 weeks. Follow-up with oncology - Diet and Activity Activity: increase activity as tolerated Diet: low fat, low cholesterol, low salt diet Hospital course: Mr. 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 According to the patient he was experiencing increasing shortness of breath, he did see his oncologist Dr. Rob on at that time concern for pneumonia and was placed on Augmentin. He was taking this medication as prescribed however his cough and shortness of breath on exertion became worse, sputum production however had no change in color. He denied any fevers chills nausea or vomiting. EMS were called and upon arrival his SPO2 was 81% he was given breathing treatment was transported to the ER. Upon arrival to the ER his oxygen saturation was 88% he was given again reading treatments as well as steroids saturations did improve to 93%. BNP was elevated 1992. Chest x-ray did showed vascular congestion as well as bilateral lower lobe opacities. He was given IV Levaquin as well as IV Lasix. The patient's baseline creatinine is around 2.5 and 3, it increased to 3.32 due to aggressive diuresis. The patient was continued on Solu-Medrol. He is still requiring 2 L of oxygen but feels much better and is stable to be discharged on oxygen therapy. Was given the option to stay an additional night but prefers to go home at the moment. Echocardiac exam in the past showed an ejection fraction of 60-65%, moderate diastolic dysfunction Time spent discussing smoking cessation with patient: 3 to 10 minutes - Time Spent with Patient Total time spent providing and/or coordinating discharge services: Greater than 30 minutes (40 min) - Constitutional Vitals: Temp Pulse Resp BP Pulse Ox 97.6 F 81 13 145/72 95 08/16/17 11:34 08/16/17 11:34 08/16/17 11:34 08/16/17 11:34 08/16/17 13:30 General appearance: Present: A&O X 3, answers questions appropriately - Head Head exam: Present: atraumatic, normocephalic - Eye Eye exam: Present: PERRL, conjuntiva pink, sclera anicteric Pupils: Present: PERRL - Neck Neck exam general surgery: Present: supple, trachea midline. Absent: lymphadenopathy - Respiratory Respiratory exam: Present: decreased breath sounds, CTAB. Absent: accessory muscle use, rales, rhonchi, wheezes - Cardiovascular Cardiovascular exam: Present: RRR, +S1, +S2. Absent: diastolic murmur, gallop, rubs, systolic murmur - GI/Abdominal GI/Abdominal exam: Present: normal bowel sounds, soft, no peritoneal signs. Absent: distended, tenderness - Extremities Exam Extremities exam: Present: warm, radial pulses palpable and symmetrical. Absent : calf tenderness, cyanotic, pedal edema - Neurological Exam Neurological exam: Present: CN II-XII intact, oriented X3, no focal deficits. Absent: pronater drift, facial droop, speech deficit - Skin Skin exam: Present: dry, intact
--- NOTE | 2017-08-16 14:13 | Physician Discharge Referral ---
Home Health/Hosp Referral Info Transfer to: Home Health Provider in Charge Post Discharge: PCP - Diagnosis (1) Hypoxemia Status: Acute (2) CHF (congestive heart failure) Status: Acute (3) COPD exacerbation Status: Acute (4) Pneumonia Status: Acute (5) CKD (chronic kidney disease) Status: Chronic (6) History of pericarditis Status: Chronic (7) Head and neck cancer Status: Acute (8) Hypertension Status: Chronic - Respiratory Orders Smoking Cessation: Smoking cessation has been advised. For more information, call the [place] Tobacco Quit Line at 0-572-HECH-NOW. - Diet/Nutrition Diet/Nutrition Orders: No Added Salt (CATHERINE) - Services Needed Following services are medically necessary services: Physical Therapy Home Care Orders: Follow-up with primary care physician within the next 7 days. Complete prednisone taper, completed 4 more doses of Levaquin starting on 08/17/2017. Continue oxygen therapy. Follow-up with pulmonary services within the next 3 weeks. Follow-up with oncology - Transfer Medications Prescriptions: levoFLOXacin [Levaquin] 500 mg PO DAILY #4 tablet predniSONE [PredniSONE] 10 mg PO DAILY 16 Days tablet Home Medications: Multivitamin [Multi-Day Vitamins] 1 tab PO DAILY 10/22/16 [History] Acetaminophen [Tylenol] 1,000 mg PO Q6HR PRN 02/23/17 [History] [place]-3/Dha/Epa/Fish Oil [Fish Oil 1,000 mg Softgel] 1,000 mg PO DAILY 02/23/17 [History] Amlodipine Besylate 10 mg PO DAILY 04/01/17 [History] Omeprazole 20 mg PO DAILY 04/01/17 [History] Atorvastatin [Lipitor] 40 mg PO HS #30 tablet 04/21/17 [Rx] Furosemide [Lasix] 40 mg PO DAILY 07/04/17 [History] Fluticasone Propionate Nasal [Flonase] 2 spr NS DAILY PRN 08/11/17 [History] Furosemide [Lasix] 20 mg PO QPM 08/11/17 [History] Potassium Chloride [Klor-Con 10] 10 meq PO BID 08/11/17 [History] Spironolactone [Aldactone] 12.5 mg PO DAILY 08/11/17 [History] Cholecalciferol (D-3) [Vitamin D] 1,000 unit PO DAILY 08/15/17 [History] Metoprolol Succinate 25 mg PO DAILY 08/15/17 [History] Tamsulosin [Flomax] 0.4 mg PO DAILY 08/15/17 [History] levoFLOXacin [Levaquin] 500 mg PO DAILY #4 tablet 08/16/17 [Rx] predniSONE [PredniSONE] 10 mg PO DAILY 16 Days tablet 08/16/17 [Rx] Allergies/Adverse Reactions: 3 Allergy/AdvReac Type Severity Reaction Status Date / Time hydrochlorothiazide Allergy Swelling Verified 08/15/17 07:43 of Lip/Tongue/Throat Certification: Further, I certify that my clinical findings support that this patient is homebound (i.e. absences from home require considerable and taxing effort and are for medical reasons or denominational services or infrequently or short duration when for other reasons) because: Homebound Reason: Patient requires assistance of a person or device to safely leave home Attestation: My signature below is to certify that this patient is under my care and that I, or nurse practitioner, or a physician's assistant manager working with me, has a face-to -face encounter with this patient.
[2017-08-16] MEDS: Acetaminophen 325 MG TABLET PO PRN (15:57)
[2017-08-16] MEDS ORDERED: predniSONE 20 MG TABLET PO SCH (17:00)
[2017-08-18] MEDS ORDERED: Levofloxacin 500 MG/100 ML 500 MG/100 ML BAG IVPB SCH (09:00)
== END 2017-08-16 18:09 | disposition home or self-care (01) | DRG 291 ==
LOC: 2ANU 09:50 → EMEROO 09:50 → 2ANU 12:32 → SUATTDRO 12:58
PROVIDERS: ADMIT Internal Medicine; ATTEND Internal Medicine

== ENCOUNTER 2021-02-09 16:44 | Inpatient (IN) ==
[2021-02-09 17:32] LABS: Basophils % 0.7 %; Eosinophils # 0.2 K/mcL (0.0-0.6); Eosinophils % 3.6 %; Hematocrit 47.2 % (37.5-50.1); Hemoglobin 15.1 g/dL (12.9-16.9); Immature Granulocytes % 0.5 % (0-4); Lymphocytes # 1.8 K/mcL (0.6-4.6); Lymphocytes % 29.4 %; Mean Corpuscular Hemoglobin 28.6 pg (28.0-33.3); Mean Corpuscular Volume 89.4 fL (83.0-100.0); Mean Platelet Volume 8.9 fL (9.4-12.4); Monocytes # 0.7 K/mcL (0.0-1.3); Monocytes % 10.7 %; Neutrophils # 3.4 K/mcL (1.6-8.9); Platelet Count 287 K/mcL (140-400); Red Blood Count 5.28 M/mcL (4.19-5.50); Red Cell Distribution Width 14.2 % (11.5-14.5); Segmented Neutrophils % 55.1 %; White Blood Count 6.1 K/mcL (4.3-11.1)
[2021-02-09 17:56] LABS: Alanine Aminotransferase 11 Units/L (7-52); Albumin 4.6 g/dL (3.5-5.7); Albumin/Globulin Ratio 1.4 (1.1-2.2); Alkaline Phosphatase 100 Units/L (34-104); Aspartate Amino Transferase 15 Units/L (13-39); BUN/Creatinine Ratio 13 (6-26); Bilirubin,Total 0.4 mg/dL (0.3-1.0); Blood Urea Nitrogen 24 mg/dL (8-23); Calcium 9.5 mg/dL (8.6-10.3); Carbon Dioxide 27 mEq/L (23-29); Chloride 98 mEq/L (98-107); Globulin 3.3 g/dL (2.4-3.5); Glucose 95 mg/dL (70-105); Osmolality,Calculated 286 (280-300); Potassium 4.5 mEq/L (3.5-5.1); Sodium 136 mEq/L (136-145); Total Protein 7.9 g/dL (6.4-8.9); Troponin I < 0.03 ng/mL (< 0.04); eGFR For African Americans 45 (> 60); eGFR For Non-African Americans 37 (> 60)
[2021-02-09 18:51] LABS: Bilirubin,Urine Negative (Negative); Blood,Urine Negative (Negative); Clarity,Urine Clear (Clear); Color,Urine Colorless (Yellow); Glucose,Urine (UA) Normal (Normal); Ketones,Urine Negative (Negative); Leukocyte Esterase,Urine Negative (Negative); Nitrite,Urine Negative (Negative); PH,Urine 6.5 pH Units (5.0-8.0); Protein,Urine Negative (Neg-Trace); Specific Gravity,Urine 1.008 (1.010-1.025); Urobilinogen,Urine Normal (Normal)
[2021-02-09] MEDS ORDERED: Famotidine 20 MG TABLET PO ONE (19:09)
[2021-02-09] MEDS ORDERED: Loratadine 10 MG TABLET PO ONE (19:09)
[2021-02-09] MEDS ORDERED: Ipratropium/Albuterol Neb 3 ML IH ONE (19:26)
[2021-02-09] MEDS ORDERED: methylPREDNISolone 125 MG/2 ML VIAL IVP ONE (19:26)
[2021-02-09] MEDS ORDERED: cefTRIAXone 1,000 MG in 0.9 % Sodium Chloride Mini Bag 100 ML IVPB ONE (20:05)
[2021-02-09] MEDS ORDERED: Azithromycin 500 MG in 0.9 % Sodium Chloride 250 ML IVPB ONE (20:05)
[2021-02-09] MEDS ORDERED: Perflutren Lipid Microsphere 1.3 ML in 0.9 % Sodium Chloride 8.7 ML IVP PRN (20:52)
[2021-02-09] MEDS ORDERED: Naloxone 0.4 MG/ML INJ IVP PRN (20:52)
[2021-02-09] MEDS ORDERED: Ondansetron 4 MG/2 ML VIAL IVP PRN (20:52)
[2021-02-09 21:22] LABS: Adenovirus Not Detected (Not Detect); Bordetella Pertussis Not Detected (Not Detect); Chlamydophila pneumoniae Not Detected (Not Detect); Coronavirus 229E Not Detected (Not Detect); Coronavirus HKU1 Not Detected (Not Detect); Coronavirus NL63 Not Detected (Not Detect); Coronavirus OC43 Not Detected (Not Detect); Human Metapneumovirus Not Detected (Not Detect); Human Rhinovirus/Enterovirus Not Detected (Not Detect); Influenza A Subtype 2009 H1 Not Detected (Not Detect); Influenza B Not Detected (Not Detect); Mycoplasma pneumoniae Not Detected (Not Detect); Parainfluenza Virus 1 Not Detected (Not Detect); Parainfluenza Virus 2 Not Detected (Not Detect); Parainfluenza Virus 3 Not Detected (Not Detect); Parainfluenza Virus 4 Not Detected (Not Detect); Respiratory Syncytial Virus Not Detected (Not Detect); SARS-CoV-2 Not Detected (Not Detect)
[2021-02-09 21:25] LABS: Phosphorous 3.5 mg/dL (2.7-4.5)
[2021-02-09] MEDS ORDERED: Furosemide 40 MG/4 ML VIAL IVP SCH (21:40)
[2021-02-09 21:43] LABS: ABG Base Excess 0 mEq/L (-2 to 3); ABG HCO3 25 mEq/L (21-27); ABG Oxygen Saturation 89 % (95-98); ABG PCO2 41 mmHg (35-45); ABG PH 7.39 pH Units (7.32-7.45); ABG PO2 57 mmHg (85-104); ABG TCO2 26 mEq/L (20-26)
[2021-02-09] MEDS: Budesonide/Formoterol 160/4.5 1 PUFF INH IH SCH (23:11)
[2021-02-09] MEDS: Ipratropium/Albuterol Neb 3 ML IH SCH (23:11)
[2021-02-10] MEDS: MethylPREDNISolone 40 MG/ML VIAL IVP SCH ×5 (01:08→21:35)
[2021-02-10] MEDS: Ipratropium/Albuterol Neb 3 ML IH SCH ×4 (04:02→22:11)
[2021-02-10] MEDS: *HR* Heparin 5,000 UNIT/ML VIAL SQ SCH ×3 (05:58→21:36)
[2021-02-10 06:34] LABS: Basophils % 0.1 %; Hematocrit 45.2 % (37.5-50.1); Hemoglobin 14.8 g/dL (12.9-16.9); Immature Granulocytes % 0.6 % (0-4); Lymphocytes # 0.6 K/mcL (0.6-4.6); Lymphocytes % 9.1 %; Mean Corpuscular HGB Conc 32.7 g/dL (31.6-35.5); Mean Corpuscular Volume 88.6 fL (83.0-100.0); Monocytes # 0.1 K/mcL (0.0-1.3); Monocytes % 0.7 %; Neutrophils # 6.3 K/mcL (1.6-8.9); Platelet Count 271 K/mcL (140-400); Red Cell Distribution Width 14.3 % (11.5-14.5); Segmented Neutrophils % 89.5 %
[2021-02-10 06:42] LABS: Prothrombin Time 12.1 Seconds (9.4-12.1)
[2021-02-10 06:53] LABS: Calcium 9.3 mg/dL (8.6-10.3); Chol/HDL Ratio 3.6 (0-4.9)
[2021-02-10 07:30] LABS: Estimated Average Glucose 123 mg/dl; Hemoglobin A1C 5.9 %
[2021-02-10] MEDS ORDERED: Furosemide 40 MG/4 ML VIAL IVP SCH (08:00)
[2021-02-10] MEDS ORDERED: Gadolinium Contrast Agent (WT Based) IV PRN ×2 (08:27→08:29)
[2021-02-10] MEDS: amLODIPine 5 MG TABLET PO SCH (08:50)
[2021-02-10] MEDS: Metoprolol XL (24 HR) Succ 25 MG TAB.ER.24H PO SCH (08:51)
[2021-02-10] MEDS: cefTRIAXone 1,000 MG in Water for inj. (sterile) 10 ML IVP SCH (08:52)
[2021-02-10] MEDS: Budesonide/Formoterol 160/4.5 1 PUFF INH IH SCH ×2 (09:57→22:11)
[2021-02-10] MEDS ORDERED: Furosemide 40 MG TABLET PO PRN (12:57)
[2021-02-10] MEDS: Aspirin 81 MG TAB.CHEW PO SCH (13:46)
[2021-02-10] MEDS ORDERED: Albumin 25% 25gram/100mL 25 GM/100 ML IV.SOLN IVPB SCH (15:00)
[2021-02-10 15:57] LABS: ABG Base Excess -1 mEq/L (-2 to 3); ABG HCO3 24 mEq/L (21-27); ABG Oxygen Saturation 93 % (95-98); ABG PCO2 40 mmHg (35-45); ABG PO2 67 mmHg (85-104); ABG TCO2 26 mEq/L (20-26)
[2021-02-10] MEDS: Azithromycin 500 MG in 0.9 % Sodium Chloride 250 ML IVPB SCH (21:36)
[2021-02-11 04:34] LABS: Calcium 9.2 mg/dL (8.6-10.3); Magnesium 2.1 mg/dL (1.6-2.6); Phosphorous 4.5 mg/dL (2.7-4.5); Potassium 4.4 mEq/L (3.5-5.1)
[2021-02-11] MEDS: Ipratropium/Albuterol Neb 3 ML IH SCH ×4 (05:02→22:37)
[2021-02-11] MEDS: MethylPREDNISolone 40 MG/ML VIAL IVP SCH ×3 (05:12→19:45)
[2021-02-11] MEDS: *HR* Heparin 5,000 UNIT/ML VIAL SQ SCH ×2 (05:12→13:42)
[2021-02-11] MEDS: cefTRIAXone 1,000 MG in Water for inj. (sterile) 10 ML IVP SCH (09:38)
[2021-02-11] MEDS: amLODIPine 5 MG TABLET PO SCH (09:38)
[2021-02-11] MEDS: Metoprolol XL (24 HR) Succ 25 MG TAB.ER.24H PO SCH (09:38)
[2021-02-11] MEDS: Furosemide 40 MG TABLET PO SCH (09:38)
[2021-02-11] MEDS: Aspirin 81 MG TAB.CHEW PO SCH (09:38)
[2021-02-11] MEDS: Budesonide/Formoterol 160/4.5 1 PUFF INH IH SCH ×2 (10:42→22:37)
[2021-02-11] MEDS ORDERED: Nitroglycerin 0.4 MG TAB.SUBL SL PRN (18:47)
[2021-02-11] MEDS ORDERED: Morphine Sulfate 2 MG/ML SYRINGE IVP PRN (18:50)
[2021-02-11] MEDS ORDERED: Isovue-370 500 ML BOTTLE IVP ONE (18:55)
[2021-02-11] MEDS: Morphine Sulfate 2 MG/ML SYRINGE IVP PRN ×2 (19:04→21:34)
[2021-02-11] MEDS: Azithromycin 500 MG in 0.9 % Sodium Chloride 250 ML IVPB SCH (19:45)
[2021-02-11] MEDS ORDERED: *HR* Heparin 5,000 UNIT/ML VIAL IVP ONE (19:45)
[2021-02-11] MEDS ORDERED: *HR* Heparin 5,000 UNIT/ML VIAL IVP PRN ×2 (19:45)
[2021-02-11] MEDS ORDERED: Heparin 25,000UNIT/250ML 1/2NS 25,000 UNIT/250 ML IV.SOLN IVC SCH (19:45)
[2021-02-11 20:01] LABS: ABG Base Excess 2 mEq/L (-2 to 3); ABG HCO3 27 mEq/L (21-27); ABG Oxygen Saturation 93 % (95-98); ABG PCO2 42 mmHg (35-45); ABG PH 7.41 pH Units (7.32-7.45); ABG PO2 66 mmHg (85-104); ABG TCO2 28 mEq/L (20-26)
[2021-02-11 20:18] LABS: Hematocrit 44.8 % (37.5-50.1); Hemoglobin 14.9 g/dL (12.9-16.9); Mean Corpuscular HGB Conc 33.3 g/dL (31.6-35.5); Mean Corpuscular Hemoglobin 28.9 pg (28.0-33.3); Mean Corpuscular Volume 86.8 fL (83.0-100.0); Mean Platelet Volume 8.9 fL (9.4-12.4); Platelet Count 296 K/mcL (140-400); Red Blood Count 5.16 M/mcL (4.19-5.50); Red Cell Distribution Width 14.2 % (11.5-14.5)
[2021-02-11 20:19] LABS: White Blood Count 13.6 K/mcL (4.3-11.1)
[2021-02-11] MEDS: *HR* HYDROcodone/Acet 5/325 mg TABLET PO PRN (20:22)
[2021-02-11 20:25] LABS: Heparin anti-factor XA UFH 0.21 IU/mL (0.30-0.70)
[2021-02-11 20:26] LABS: INR 0.9; Prothrombin Time 10.8 Seconds (9.4-12.1)
[2021-02-12] MEDS: Ipratropium/Albuterol Neb 3 ML IH SCH ×4 (03:45→22:27)
[2021-02-12] MEDS: MethylPREDNISolone 40 MG/ML VIAL IVP SCH ×3 (04:55→20:20)
[2021-02-12] MEDS ORDERED: Isovue-370 500 ML BOTTLE IVP ONE (07:11)
[2021-02-12 08:26] LABS: Hematocrit 41.5 % (37.5-50.1); Hemoglobin 13.7 g/dL (12.9-16.9); Immature Granulocytes % 0.6 % (0-4); Lymphocytes # 0.7 K/mcL (0.6-4.6); Lymphocytes % 6.4 %; Mean Corpuscular Hemoglobin 28.3 pg (28.0-33.3); Mean Corpuscular Volume 85.7 fL (83.0-100.0); Mean Platelet Volume 8.8 fL (9.4-12.4); Monocytes # 0.6 K/mcL (0.0-1.3); Monocytes % 5.1 %; Neutrophils # 9.5 K/mcL (1.6-8.9); Platelet Count 261 K/mcL (140-400); Red Blood Count 4.84 M/mcL (4.19-5.50); Red Cell Distribution Width 14.1 % (11.5-14.5); Segmented Neutrophils % 87.9 %; White Blood Count 10.8 K/mcL (4.3-11.1)
[2021-02-12 08:34] LABS: Albumin 4.1 g/dL (3.5-5.7); Albumin/Globulin Ratio 1.5 (1.1-2.2); Bilirubin,Total 0.4 mg/dL (0.3-1.0); Globulin 2.7 g/dL (2.4-3.5); Potassium 4.5 mEq/L (3.5-5.1); Total Protein 6.8 g/dL (6.4-8.9)
[2021-02-12] MEDS: cefTRIAXone 1,000 MG in Water for inj. (sterile) 10 ML IVP SCH (09:23)
[2021-02-12] MEDS: amLODIPine 5 MG TABLET PO SCH (09:46)
[2021-02-12] MEDS: Aspirin 81 MG TAB.CHEW PO SCH (09:46)
[2021-02-12] MEDS: Piperacillin/Tazobactam 3.375 GM in 0.9 % Sodium Chloride Mini Bag 100 ML IVPB SCH ×3 (09:46→23:41)
[2021-02-12] MEDS: Metoprolol XL (24 HR) Succ 25 MG TAB.ER.24H PO SCH (09:46)
[2021-02-12] MEDS: Budesonide/Formoterol 160/4.5 1 PUFF INH IH SCH ×2 (10:07→22:27)
[2021-02-12] MEDS: *HR* HYDROcodone/Acet 5/325 mg TABLET PO PRN (18:39)
[2021-02-12] MEDS: Azithromycin 500 MG in 0.9 % Sodium Chloride 250 ML IVPB SCH (20:21)
[2021-02-12] MEDS: Acetaminophen 325 MG TABLET PO PRN (20:21)
[2021-02-13] MEDS: Acetaminophen 325 MG TABLET PO PRN (02:26)
[2021-02-13 02:47] LABS: Hematocrit 46.5 % (37.5-50.1); Hemoglobin 14.9 g/dL (12.9-16.9); Immature Granulocytes % 0.6 % (0-4); Lymphocytes # 0.7 K/mcL (0.6-4.6); Lymphocytes % 5.5 %; Mean Corpuscular Volume 90.6 fL (83.0-100.0); Mean Platelet Volume 8.8 fL (9.4-12.4); Monocytes # 0.5 K/mcL (0.0-1.3); Monocytes % 3.9 %; Neutrophils # 10.7 K/mcL (1.6-8.9); Platelet Count 255 K/mcL (140-400); Red Blood Count 5.13 M/mcL (4.19-5.50); Red Cell Distribution Width 14.3 % (11.5-14.5); White Blood Count 11.9 K/mcL (4.3-11.1)
[2021-02-13 03:07] LABS: Albumin 4.2 g/dL (3.5-5.7); Albumin/Globulin Ratio 1.4 (1.1-2.2); Bilirubin,Total 0.6 mg/dL (0.3-1.0); Calcium 9.1 mg/dL (8.6-10.3); Globulin 2.9 g/dL (2.4-3.5); Potassium 4.7 mEq/L (3.5-5.1); Total Protein 7.1 g/dL (6.4-8.9)
[2021-02-13] MEDS: Ipratropium/Albuterol Neb 3 ML IH SCH ×4 (04:08→21:54)
[2021-02-13] MEDS: MethylPREDNISolone 40 MG/ML VIAL IVP SCH ×3 (07:27→21:38)
[2021-02-13] MEDS: amLODIPine 5 MG TABLET PO SCH (07:27)
[2021-02-13] MEDS: Metoprolol XL (24 HR) Succ 25 MG TAB.ER.24H PO SCH (07:28)
[2021-02-13] MEDS: Piperacillin/Tazobactam 3.375 GM in 0.9 % Sodium Chloride Mini Bag 100 ML IVPB SCH ×3 (07:28→23:32)
[2021-02-13] MEDS: Aspirin 81 MG TAB.CHEW PO SCH (07:28)
[2021-02-13] MEDS: Budesonide/Formoterol 160/4.5 1 PUFF INH IH SCH ×2 (10:00→21:54)
[2021-02-13] MEDS: Doxycycline 100 MG CAPSULE PO SCH ×2 (11:07→21:38)
[2021-02-14 02:51] LABS: Hematocrit 41.9 % (37.5-50.1); Hemoglobin 13.4 g/dL (12.9-16.9); Mean Corpuscular Hemoglobin 28.2 pg (28.0-33.3); Mean Corpuscular Volume 88.2 fL (83.0-100.0); Mean Platelet Volume 8.8 fL (9.4-12.4); Platelet Count 279 K/mcL (140-400); Red Blood Count 4.75 M/mcL (4.19-5.50); Red Cell Distribution Width 14.2 % (11.5-14.5); White Blood Count 10.1 K/mcL (4.3-11.1)
[2021-02-14 03:08] LABS: Calcium 8.7 mg/dL (8.6-10.3); Potassium 4.4 mEq/L (3.5-5.1)
[2021-02-14] MEDS: Ipratropium/Albuterol Neb 3 ML IH SCH ×4 (03:47→22:54)
[2021-02-14] MEDS: MethylPREDNISolone 40 MG/ML VIAL IVP SCH ×3 (04:39→20:26)
[2021-02-14] MEDS: Aspirin 81 MG TAB.CHEW PO SCH (08:23)
[2021-02-14] MEDS: Furosemide 40 MG TABLET PO SCH (08:24)
[2021-02-14] MEDS: amLODIPine 5 MG TABLET PO SCH (08:24)
[2021-02-14] MEDS: Doxycycline 100 MG CAPSULE PO SCH ×2 (08:24→20:25)
[2021-02-14] MEDS: Piperacillin/Tazobactam 3.375 GM in 0.9 % Sodium Chloride Mini Bag 100 ML IVPB SCH ×3 (08:25→23:21)
[2021-02-14] MEDS: Metoprolol XL (24 HR) Succ 25 MG TAB.ER.24H PO SCH (08:25)
[2021-02-14] MEDS: Budesonide/Formoterol 160/4.5 1 PUFF INH IH SCH ×2 (10:05→22:53)
[2021-02-14] MEDS: *HR* HYDROcodone/Acet 5/325 mg TABLET PO PRN (18:46)
[2021-02-15] MEDS: Ipratropium/Albuterol Neb 3 ML IH SCH ×4 (04:04→22:21)
[2021-02-15] MEDS: MethylPREDNISolone 40 MG/ML VIAL IVP SCH ×3 (05:26→20:22)
[2021-02-15 06:33] LABS: Hemoglobin 13.3 g/dL (12.9-16.9); Mean Corpuscular HGB Conc 32.4 g/dL (31.6-35.5); Mean Corpuscular Hemoglobin 28.8 pg (28.0-33.3); Mean Corpuscular Volume 88.7 fL (83.0-100.0); Mean Platelet Volume 8.8 fL (9.4-12.4); Platelet Count 255 K/mcL (140-400); Red Blood Count 4.62 M/mcL (4.19-5.50); White Blood Count 9.8 K/mcL (4.3-11.1)
[2021-02-15 06:52] LABS: Calcium 8.5 mg/dL (8.6-10.3); Potassium 4.4 mEq/L (3.5-5.1)
[2021-02-15] MEDS: Metoprolol XL (24 HR) Succ 25 MG TAB.ER.24H PO SCH (07:49)
[2021-02-15] MEDS: Aspirin 81 MG TAB.CHEW PO SCH (07:49)
[2021-02-15] MEDS: Furosemide 40 MG TABLET PO SCH (07:49)
[2021-02-15] MEDS: Doxycycline 100 MG CAPSULE PO SCH ×2 (07:49→20:22)
[2021-02-15] MEDS: amLODIPine 5 MG TABLET PO SCH (07:49)
[2021-02-15] MEDS: Piperacillin/Tazobactam 3.375 GM in 0.9 % Sodium Chloride Mini Bag 100 ML IVPB SCH ×3 (07:50→23:50)
[2021-02-15] MEDS: Budesonide/Formoterol 160/4.5 1 PUFF INH IH SCH ×2 (08:35→22:22)
[2021-02-16] MEDS: Ipratropium/Albuterol Neb 3 ML IH SCH ×3 (03:56→15:43)
[2021-02-16] MEDS: MethylPREDNISolone 40 MG/ML VIAL IVP SCH ×2 (04:33→12:48)
[2021-02-16] MEDS: Aspirin 81 MG TAB.CHEW PO SCH (08:29)
[2021-02-16] MEDS: amLODIPine 5 MG TABLET PO SCH (08:30)
[2021-02-16] MEDS: Furosemide 40 MG TABLET PO SCH (08:30)
[2021-02-16] MEDS: Doxycycline 100 MG CAPSULE PO SCH (08:30)
[2021-02-16] MEDS: Metoprolol XL (24 HR) Succ 25 MG TAB.ER.24H PO SCH (08:31)
[2021-02-16] MEDS: Piperacillin/Tazobactam 3.375 GM in 0.9 % Sodium Chloride Mini Bag 100 ML IVPB SCH ×2 (08:31→16:18)
[2021-02-16] MEDS: Budesonide/Formoterol 160/4.5 1 PUFF INH IH SCH (11:21)
[2021-02-16 14:21] VITALS: BP 109/58
== END 2021-02-16 18:25 | disposition home health service (06) | DRG 871 ==
LOC: EMEROOARM 16:44 → 3ANU 16:44 → SUATTDRO 21:29 → 3ANU 22:20 → SUATTDRO 02-10 12:23
PROVIDERS: ADMIT Student in an Organized Health Care Education/Training Program; ATTEND Internal Medicine

== ENCOUNTER 2021-12-11 17:07 | Inpatient (IN) ==
[2021-12-12] MEDS ORDERED: Naloxone 0.4 MG/ML INJ IVP PRN (12:56)
[2021-12-12] MEDS ORDERED: D5% in Water 1,000 ML IVC PRN (13:20)
[2021-12-12] MEDS ORDERED: *HR* Dextrose 50 % in Water (Syg) 50 ML SYRINGE IVP PRN (13:20)
[2021-12-12] MEDS ORDERED: Dextrose Gel 15 GM/37.5 ML TUBE PO PRN ×2 (13:20)
[2021-12-12] MEDS ORDERED: Ondansetron 4 MG/2 ML VIAL IVP PRN (13:22)
[2021-12-12] MEDS: Ipratropium 1 PUFF INHALER IH SCH ×3 (16:42→23:28)
[2021-12-12] MEDS: Insulin LISPRO 300 UNITS/3 ML VIAL SUBQ SCH ×2 (17:17→19:47)
[2021-12-12] MEDS: Acetaminophen 325 MG TABLET PO PRN (19:58)
[2021-12-12] MEDS ORDERED: LACTOSE REDUCED FOOD PO SCH (21:00)
[2021-12-13] MEDS: Ipratropium 1 PUFF INHALER IH SCH ×6 (03:45→23:22)
[2021-12-13] MEDS: *HR* Enoxaparin 30 MG/0.3 ML SYRINGE SQ SCH (05:40)
[2021-12-13] MEDS: Insulin LISPRO 300 UNITS/3 ML VIAL SUBQ SCH ×4 (08:07→20:39)
[2021-12-13] MEDS: Metoprolol XL (24 HR) Succ 50 MG TAB.ER.24H PO SCH (10:13)
[2021-12-13] MEDS: Cholecalciferol (D-3) 1,000 UNIT (25MCG) TABLET PO SCH (10:13)
[2021-12-13] MEDS: Furosemide 20 MG TABLET PO SCH (10:13)
[2021-12-13] MEDS: amLODIPine 5 MG TABLET PO SCH (10:14)
[2021-12-13] MEDS: Acetaminophen 325 MG TABLET PO PRN (10:31)
[2021-12-13 12:08] LABS: Basophils % 0.1 %; Hematocrit 43.5 % (37.5-50.1); Hemoglobin 14.6 g/dL (12.9-16.9); Immature Granulocytes % 0.8 % (0-4); Lymphocytes # 0.5 K/mcL (0.6-4.6); Mean Corpuscular HGB Conc 33.6 g/dL (31.6-35.5); Mean Corpuscular Hemoglobin 28.7 pg (28.0-33.3); Mean Corpuscular Volume 85.5 fL (83.0-100.0); Mean Platelet Volume 9.3 fL (9.4-12.4); Monocytes # 0.5 K/mcL (0.0-1.3); Monocytes % 5.5 %; Neutrophils # 7.7 K/mcL (1.6-8.9); Platelet Count 249 K/mcL (140-400); Red Blood Count 5.09 M/mcL (4.19-5.50); Segmented Neutrophils % 87.6 %; White Blood Count 8.8 K/mcL (4.3-11.1)
[2021-12-13 12:27] LABS: Magnesium 2.1 mg/dL (1.6-2.6); Phosphorous 2.9 mg/dL (2.7-4.5)
[2021-12-13 12:31] LABS: Albumin 3.7 g/dL (3.5-5.7); Albumin/Globulin Ratio 1.2 (1.1-2.2); Bilirubin,Total 0.3 mg/dL (0.3-1.0); Calcium 8.6 mg/dL (8.6-10.3); Globulin 3.2 g/dL (2.4-3.5); Potassium 5.2 mEq/L (3.5-5.1); Total Protein 6.9 g/dL (6.4-8.9)
[2021-12-14] MEDS: Ipratropium 1 PUFF INHALER IH SCH ×5 (03:40→20:05)
[2021-12-14] MEDS: *HR* Enoxaparin 30 MG/0.3 ML SYRINGE SQ SCH (05:39)
[2021-12-14 08:03] LABS: Basophils % 0.1 %; Hematocrit 42.1 % (37.5-50.1); Hemoglobin 14.1 g/dL (12.9-16.9); Immature Granulocytes % 1.4 % (0-4); Lymphocytes # 0.5 K/mcL (0.6-4.6); Lymphocytes % 6.7 %; Mean Corpuscular HGB Conc 33.5 g/dL (31.6-35.5); Mean Corpuscular Hemoglobin 28.7 pg (28.0-33.3); Mean Corpuscular Volume 85.7 fL (83.0-100.0); Mean Platelet Volume 9.9 fL (9.4-12.4); Monocytes # 0.7 K/mcL (0.0-1.3); Monocytes % 8.3 %; Neutrophils # 6.6 K/mcL (1.6-8.9); Platelet Count 261 K/mcL (140-400); Red Blood Count 4.91 M/mcL (4.19-5.50); Red Cell Distribution Width 13.9 % (11.5-14.5); Segmented Neutrophils % 83.5 %; White Blood Count 7.9 K/mcL (4.3-11.1)
[2021-12-14 08:27] LABS: Albumin 3.7 g/dL (3.5-5.7); Albumin/Globulin Ratio 1.1 (1.1-2.2); Bilirubin,Total 0.4 mg/dL (0.3-1.0); Calcium 8.5 mg/dL (8.6-10.3); Globulin 3.3 g/dL (2.4-3.5); Potassium 4.8 mEq/L (3.5-5.1)
[2021-12-14] MEDS: Insulin LISPRO 300 UNITS/3 ML VIAL SUBQ SCH ×4 (09:17→19:47)
[2021-12-14] MEDS: amLODIPine 5 MG TABLET PO SCH (09:28)
[2021-12-14] MEDS: Cholecalciferol (D-3) 1,000 UNIT (25MCG) TABLET PO SCH (09:28)
[2021-12-14] MEDS: Furosemide 20 MG TABLET PO SCH (09:29)
[2021-12-14] MEDS: Metoprolol XL (24 HR) Succ 50 MG TAB.ER.24H PO SCH (09:29)
[2021-12-15] MEDS: Ipratropium 1 PUFF INHALER IH SCH ×6 (00:03→20:52)
[2021-12-15] MEDS: *HR* Enoxaparin 40 MG/0.4 ML SYRINGE SQ SCH (05:15)
[2021-12-15 06:20] LABS: Basophils % 0.3 %; Hematocrit 44.7 % (37.5-50.1); Hemoglobin 14.5 g/dL (12.9-16.9); Lymphocytes # 0.5 K/mcL (0.6-4.6); Lymphocytes % 6.6 %; Mean Corpuscular HGB Conc 32.4 g/dL (31.6-35.5); Mean Corpuscular Hemoglobin 27.6 pg (28.0-33.3); Mean Corpuscular Volume 85.1 fL (83.0-100.0); Mean Platelet Volume 9.7 fL (9.4-12.4); Monocytes # 0.6 K/mcL (0.0-1.3); Monocytes % 7.7 %; Neutrophils # 6.1 K/mcL (1.6-8.9); Platelet Count 258 K/mcL (140-400); Red Blood Count 5.25 M/mcL (4.19-5.50); Segmented Neutrophils % 84.4 %; White Blood Count 7.2 K/mcL (4.3-11.1)
[2021-12-15 06:59] LABS: Albumin 3.8 g/dL (3.5-5.7); Albumin/Globulin Ratio 1.2 (1.1-2.2); Bilirubin,Total 0.4 mg/dL (0.3-1.0); Calcium 8.6 mg/dL (8.6-10.3); Globulin 3.2 g/dL (2.4-3.5); Magnesium 2.2 mg/dL (1.6-2.6); Potassium 4.3 mEq/L (3.5-5.1)
[2021-12-15] MEDS: Furosemide 20 MG TABLET PO SCH (10:14)
[2021-12-15] MEDS: amLODIPine 5 MG TABLET PO SCH (10:14)
[2021-12-15] MEDS: Cholecalciferol (D-3) 1,000 UNIT (25MCG) TABLET PO SCH (10:14)
[2021-12-15] MEDS: Insulin LISPRO 300 UNITS/3 ML VIAL SUBQ SCH ×4 (10:14→23:19)
[2021-12-15] MEDS: Metoprolol XL (24 HR) Succ 50 MG TAB.ER.24H PO SCH (10:14)
[2021-12-16] MEDS: Ipratropium 1 PUFF INHALER IH SCH ×6 (00:16→20:21)
[2021-12-16] MEDS: *HR* Enoxaparin 40 MG/0.4 ML SYRINGE SQ SCH (05:27)
[2021-12-16 06:30] LABS: Basophils % 0.3 %; Hematocrit 43.9 % (37.5-50.1); Hemoglobin 14.5 g/dL (12.9-16.9); Immature Granulocytes % 1.2 % (0-4); Lymphocytes # 0.6 K/mcL (0.6-4.6); Lymphocytes % 8.8 %; Mean Corpuscular Hemoglobin 28.2 pg (28.0-33.3); Mean Corpuscular Volume 85.2 fL (83.0-100.0); Mean Platelet Volume 9.7 fL (9.4-12.4); Monocytes # 0.5 K/mcL (0.0-1.3); Monocytes % 6.6 %; Neutrophils # 5.6 K/mcL (1.6-8.9); Platelet Count 271 K/mcL (140-400); Red Blood Count 5.15 M/mcL (4.19-5.50); Red Cell Distribution Width 14.2 % (11.5-14.5); Segmented Neutrophils % 83.1 %; White Blood Count 6.8 K/mcL (4.3-11.1)
[2021-12-16 06:50] LABS: Albumin 3.9 g/dL (3.5-5.7); Albumin/Globulin Ratio 1.3 (1.1-2.2); Bilirubin,Total 0.5 mg/dL (0.3-1.0); Calcium 8.8 mg/dL (8.6-10.3); Potassium 4.4 mEq/L (3.5-5.1); Total Protein 6.9 g/dL (6.4-8.9)
[2021-12-16] MEDS: Insulin LISPRO 300 UNITS/3 ML VIAL SUBQ SCH ×4 (07:30→20:34)
[2021-12-16] MEDS: Cholecalciferol (D-3) 1,000 UNIT (25MCG) TABLET PO SCH (07:47)
[2021-12-16] MEDS: amLODIPine 5 MG TABLET PO SCH (07:47)
[2021-12-16] MEDS: Metoprolol XL (24 HR) Succ 50 MG TAB.ER.24H PO SCH (07:47)
[2021-12-16] MEDS: Furosemide 20 MG TABLET PO SCH (07:47)
[2021-12-17 02:07] LABS: Basophils % 0.3 %; Hematocrit 47.8 % (37.5-50.1); Hemoglobin 15.6 g/dL (12.9-16.9); Lymphocytes # 0.7 K/mcL (0.6-4.6); Lymphocytes % 7.5 %; Mean Corpuscular HGB Conc 32.6 g/dL (31.6-35.5); Mean Corpuscular Hemoglobin 28.1 pg (28.0-33.3); Mean Platelet Volume 9.8 fL (9.4-12.4); Monocytes # 0.6 K/mcL (0.0-1.3); Monocytes % 6.6 %; Neutrophils # 7.8 K/mcL (1.6-8.9); Platelet Count 309 K/mcL (140-400); Red Blood Count 5.56 M/mcL (4.19-5.50); Red Cell Distribution Width 14.1 % (11.5-14.5); Segmented Neutrophils % 84.6 %; White Blood Count 9.3 K/mcL (4.3-11.1)
[2021-12-17 02:27] LABS: Calcium 9.1 mg/dL (8.6-10.3); Magnesium 2.5 mg/dL (1.6-2.6); Phosphorous 3.4 mg/dL (2.7-4.5); Potassium 4.2 mEq/L (3.5-5.1)
[2021-12-17] MEDS: Ipratropium 1 PUFF INHALER IH SCH ×6 (04:20→19:33)
[2021-12-17] MEDS: *HR* Enoxaparin 40 MG/0.4 ML SYRINGE SQ SCH (05:57)
[2021-12-17] MEDS: amLODIPine 5 MG TABLET PO SCH (10:29)
[2021-12-17] MEDS: Metoprolol XL (24 HR) Succ 50 MG TAB.ER.24H PO SCH (10:29)
[2021-12-17] MEDS: Cholecalciferol (D-3) 1,000 UNIT (25MCG) TABLET PO SCH (10:29)
[2021-12-17] MEDS: Insulin LISPRO 300 UNITS/3 ML VIAL SUBQ SCH ×4 (10:30→19:33)
[2021-12-18] MEDS: Ipratropium 1 PUFF INHALER IH SCH ×7 (00:04→23:55)
[2021-12-18] MEDS: *HR* Enoxaparin 40 MG/0.4 ML SYRINGE SQ SCH (06:01)
[2021-12-18 06:05] LABS: Fibrinogen 402 mg/dL (169-393)
[2021-12-18 06:12] LABS: Calcium 8.7 mg/dL (8.6-10.3); Magnesium 2.4 mg/dL (1.6-2.6); Phosphorous 2.7 mg/dL (2.7-4.5)
[2021-12-18 06:13] LABS: D-Dimer 1903 ng/mLFEU (0-500)
[2021-12-18] MEDS: Insulin LISPRO 300 UNITS/3 ML VIAL SUBQ SCH ×4 (06:55→19:43)
[2021-12-18] MEDS: Metoprolol XL (24 HR) Succ 50 MG TAB.ER.24H PO SCH (09:19)
[2021-12-18] MEDS: amLODIPine 5 MG TABLET PO SCH (09:20)
[2021-12-18] MEDS: Cholecalciferol (D-3) 1,000 UNIT (25MCG) TABLET PO SCH (09:20)
[2021-12-19] MEDS: Ipratropium 1 PUFF INHALER IH SCH ×6 (04:10→23:32)
[2021-12-19] MEDS: *HR* Enoxaparin 40 MG/0.4 ML SYRINGE SQ SCH (05:00)
[2021-12-19 06:30] LABS: Basophils % 0.1 %; Eosinophils % 0.2 %; Hematocrit 44.8 % (37.5-50.1); Hemoglobin 14.6 g/dL (12.9-16.9); Immature Granulocytes % 0.7 % (0-4); Lymphocytes # 0.6 K/mcL (0.6-4.6); Lymphocytes % 7.5 %; Mean Corpuscular HGB Conc 32.6 g/dL (31.6-35.5); Mean Corpuscular Hemoglobin 28.1 pg (28.0-33.3); Mean Corpuscular Volume 86.2 fL (83.0-100.0); Mean Platelet Volume 9.6 fL (9.4-12.4); Monocytes # 0.5 K/mcL (0.0-1.3); Monocytes % 6.3 %; Neutrophils # 7.1 K/mcL (1.6-8.9); Platelet Count 296 K/mcL (140-400); Red Cell Distribution Width 13.9 % (11.5-14.5); Segmented Neutrophils % 85.2 %; White Blood Count 8.4 K/mcL (4.3-11.1)
[2021-12-19 06:55] LABS: Calcium 8.7 mg/dL (8.6-10.3); Magnesium 2.4 mg/dL (1.6-2.6); Potassium 4.1 mEq/L (3.5-5.1)
[2021-12-19] MEDS: Insulin LISPRO 300 UNITS/3 ML VIAL SUBQ SCH ×4 (07:23→21:21)
[2021-12-19] MEDS: amLODIPine 5 MG TABLET PO SCH (08:51)
[2021-12-19] MEDS: Cholecalciferol (D-3) 1,000 UNIT (25MCG) TABLET PO SCH (08:52)
[2021-12-19] MEDS: Metoprolol XL (24 HR) Succ 50 MG TAB.ER.24H PO SCH (08:52)
[2021-12-20] MEDS: Ipratropium 1 PUFF INHALER IH SCH ×6 (04:17→23:52)
[2021-12-20 05:46] LABS: Calcium 8.8 mg/dL (8.6-10.3); Magnesium 2.2 mg/dL (1.6-2.6); Potassium 3.9 mEq/L (3.5-5.1)
[2021-12-20] MEDS: *HR* Enoxaparin 40 MG/0.4 ML SYRINGE SQ SCH (06:16)
[2021-12-20] MEDS: Insulin LISPRO 300 UNITS/3 ML VIAL SUBQ SCH ×4 (07:33→20:59)
[2021-12-20] MEDS: Cholecalciferol (D-3) 1,000 UNIT (25MCG) TABLET PO SCH (08:04)
[2021-12-20] MEDS: amLODIPine 5 MG TABLET PO SCH (08:04)
[2021-12-20] MEDS: Metoprolol XL (24 HR) Succ 50 MG TAB.ER.24H PO SCH (08:05)
[2021-12-20] MEDS: Furosemide 20 MG TABLET PO SCH (13:06)
[2021-12-21] MEDS: Ipratropium 1 PUFF INHALER IH SCH ×6 (04:15→23:31)
[2021-12-21] MEDS: *HR* Enoxaparin 40 MG/0.4 ML SYRINGE SQ SCH (06:12)
[2021-12-21] MEDS: Insulin LISPRO 300 UNITS/3 ML VIAL SUBQ SCH ×4 (07:38→21:02)
[2021-12-21] MEDS: amLODIPine 5 MG TABLET PO SCH (09:03)
[2021-12-21] MEDS: Metoprolol XL (24 HR) Succ 50 MG TAB.ER.24H PO SCH (09:03)
[2021-12-21] MEDS: Furosemide 20 MG TABLET PO SCH (09:04)
[2021-12-21] MEDS: Cholecalciferol (D-3) 1,000 UNIT (25MCG) TABLET PO SCH (09:04)
[2021-12-22 02:37] LABS: Calcium 8.8 mg/dL (8.6-10.3); Phosphorous 2.4 mg/dL (2.7-4.5); Potassium 3.9 mEq/L (3.5-5.1)
[2021-12-22] MEDS: Ipratropium 1 PUFF INHALER IH SCH ×6 (04:33→23:38)
[2021-12-22] MEDS: *HR* Enoxaparin 40 MG/0.4 ML SYRINGE SQ SCH (05:48)
[2021-12-22] MEDS: Cholecalciferol (D-3) 1,000 UNIT (25MCG) TABLET PO SCH (08:38)
[2021-12-22] MEDS: Metoprolol XL (24 HR) Succ 50 MG TAB.ER.24H PO SCH (08:39)
[2021-12-22] MEDS: amLODIPine 5 MG TABLET PO SCH (08:39)
[2021-12-22] MEDS: Furosemide 20 MG TABLET PO SCH (08:39)
[2021-12-22] MEDS: Insulin LISPRO 300 UNITS/3 ML VIAL SUBQ SCH ×4 (08:40→20:18)
[2021-12-23] MEDS: Ipratropium 1 PUFF INHALER IH SCH ×6 (03:58→23:49)
[2021-12-23] MEDS: *HR* Enoxaparin 40 MG/0.4 ML SYRINGE SQ SCH (05:26)
[2021-12-23 05:45] LABS: Basophils % 0.1 %; Eosinophils % 0.1 %; Immature Granulocytes % 0.5 % (0-4); Lymphocytes # 0.7 K/mcL (0.6-4.6); Lymphocytes % 8.8 %; Mean Corpuscular HGB Conc 31.8 g/dL (31.6-35.5); Mean Corpuscular Hemoglobin 27.8 pg (28.0-33.3); Mean Corpuscular Volume 87.5 fL (83.0-100.0); Mean Platelet Volume 10.1 fL (9.4-12.4); Monocytes # 0.5 K/mcL (0.0-1.3); Monocytes % 5.6 %; Neutrophils # 6.9 K/mcL (1.6-8.9); Platelet Count 226 K/mcL (140-400); Red Blood Count 4.57 M/mcL (4.19-5.50); Red Cell Distribution Width 13.8 % (11.5-14.5); Segmented Neutrophils % 84.9 %; White Blood Count 8.1 K/mcL (4.3-11.1)
[2021-12-23 05:48] LABS: Hemoglobin 12.7 g/dL (12.9-16.9)
[2021-12-23 06:03] LABS: BUN/Creatinine Ratio 39 (6-26); Blood Urea Nitrogen 52 mg/dL (8-23); Calcium 8.4 mg/dL (8.6-10.3); Carbon Dioxide 29 mEq/L (23-29); Chloride 106 mEq/L (98-107); Glucose 85 mg/dL (70-105); Magnesium 1.9 mg/dL (1.6-2.6); Osmolality,Calculated 305 (280-300); Phosphorous 2.4 mg/dL (2.7-4.5); Sodium 141 mEq/L (136-145); eGFR For African Americans > 60 (> 60); eGFR For Non-African Americans 51 (> 60)
[2021-12-23] MEDS: Insulin LISPRO 300 UNITS/3 ML VIAL SUBQ SCH ×4 (08:23→21:30)
[2021-12-23] MEDS: amLODIPine 5 MG TABLET PO SCH (08:25)
[2021-12-23] MEDS: Metoprolol XL (24 HR) Succ 50 MG TAB.ER.24H PO SCH (08:25)
[2021-12-23] MEDS: Cholecalciferol (D-3) 1,000 UNIT (25MCG) TABLET PO SCH (08:25)
[2021-12-23] MEDS: Furosemide 20 MG TABLET PO SCH (08:25)
[2021-12-24] MEDS: Ipratropium 1 PUFF INHALER IH SCH ×5 (03:39→20:58)
[2021-12-24] MEDS: *HR* Enoxaparin 40 MG/0.4 ML SYRINGE SQ SCH (05:19)
[2021-12-24 05:54] LABS: Basophils % 0.1 %; Eosinophils % 0.1 %; Hematocrit 39.7 % (37.5-50.1); Hemoglobin 12.8 g/dL (12.9-16.9); Immature Granulocytes % 0.3 % (0-4); Lymphocytes # 0.7 K/mcL (0.6-4.6); Lymphocytes % 10.1 %; Mean Corpuscular HGB Conc 32.2 g/dL (31.6-35.5); Mean Corpuscular Hemoglobin 27.8 pg (28.0-33.3); Mean Corpuscular Volume 86.1 fL (83.0-100.0); Mean Platelet Volume 9.8 fL (9.4-12.4); Monocytes # 0.4 K/mcL (0.0-1.3); Monocytes % 5.4 %; Neutrophils # 6.2 K/mcL (1.6-8.9); Platelet Count 217 K/mcL (140-400); Red Blood Count 4.61 M/mcL (4.19-5.50); Red Cell Distribution Width 13.9 % (11.5-14.5); White Blood Count 7.4 K/mcL (4.3-11.1)
[2021-12-24 06:12] LABS: Alanine Aminotransferase 27 Units/L (7-52); Albumin 3.4 g/dL (3.5-5.7); Albumin/Globulin Ratio 1.5 (1.1-2.2); Alkaline Phosphatase 48 Units/L (34-104); Aspartate Amino Transferase 23 Units/L (13-39); BUN/Creatinine Ratio 32 (6-26); Bilirubin,Total 0.5 mg/dL (0.3-1.0); Blood Urea Nitrogen 43 mg/dL (8-23); Calcium 8.5 mg/dL (8.6-10.3); Carbon Dioxide 29 mEq/L (23-29); Chloride 100 mEq/L (98-107); Globulin 2.3 g/dL (2.4-3.5); Glucose 74 mg/dL (70-105); Magnesium 1.8 mg/dL (1.6-2.6); Osmolality,Calculated 291 (280-300); Potassium 4.3 mEq/L (3.5-5.1); Sodium 136 mEq/L (136-145); Total Protein 5.7 g/dL (6.4-8.9); eGFR For African Americans > 60 (> 60); eGFR For Non-African Americans 52 (> 60)
[2021-12-24] MEDS: Insulin LISPRO 300 UNITS/3 ML VIAL SUBQ SCH ×4 (07:33→21:09)
[2021-12-24] MEDS: Cholecalciferol (D-3) 1,000 UNIT (25MCG) TABLET PO SCH (07:55)
[2021-12-24] MEDS: amLODIPine 5 MG TABLET PO SCH (07:55)
[2021-12-24] MEDS: Metoprolol XL (24 HR) Succ 50 MG TAB.ER.24H PO SCH (07:56)
[2021-12-24] MEDS: Furosemide 20 MG TABLET PO SCH (07:57)
[2021-12-24] MEDS: Acetaminophen 325 MG TABLET PO PRN (09:22)
[2021-12-25] MEDS: Ipratropium 1 PUFF INHALER IH SCH ×7 (00:36→23:20)
[2021-12-25 03:32] LABS: Eosinophils % 0.3 %; Hematocrit 37.5 % (37.5-50.1); Hemoglobin 12.6 g/dL (12.9-16.9); Immature Granulocytes % 0.7 % (0-4); Lymphocytes # 0.7 K/mcL (0.6-4.6); Lymphocytes % 9.3 %; Mean Corpuscular HGB Conc 33.6 g/dL (31.6-35.5); Mean Corpuscular Hemoglobin 28.9 pg (28.0-33.3); Mean Platelet Volume 9.7 fL (9.4-12.4); Monocytes # 0.4 K/mcL (0.0-1.3); Monocytes % 5.8 %; Platelet Count 207 K/mcL (140-400); Red Blood Count 4.36 M/mcL (4.19-5.50); Red Cell Distribution Width 13.8 % (11.5-14.5); Segmented Neutrophils % 83.9 %; White Blood Count 7.2 K/mcL (4.3-11.1)
[2021-12-25 03:46] LABS: BUN/Creatinine Ratio 31 (6-26); Blood Urea Nitrogen 39 mg/dL (8-23); Calcium 8.3 mg/dL (8.6-10.3); Carbon Dioxide 29 mEq/L (23-29); Chloride 100 mEq/L (98-107); Glucose 80 mg/dL (70-105); Osmolality,Calculated 288 (280-300); Potassium 4.1 mEq/L (3.5-5.1); Sodium 135 mEq/L (136-145); eGFR For African Americans > 60 (> 60); eGFR For Non-African Americans 55 (> 60)
[2021-12-25] MEDS: *HR* Enoxaparin 40 MG/0.4 ML SYRINGE SQ SCH (05:57)
[2021-12-25] MEDS: Insulin LISPRO 300 UNITS/3 ML VIAL SUBQ SCH ×4 (08:47→20:33)
[2021-12-25] MEDS: Cholecalciferol (D-3) 1,000 UNIT (25MCG) TABLET PO SCH (08:48)
[2021-12-25] MEDS: amLODIPine 5 MG TABLET PO SCH (08:49)
[2021-12-25] MEDS: Furosemide 20 MG TABLET PO SCH ×2 (08:52→20:34)
[2021-12-25] MEDS: Metoprolol XL (24 HR) Succ 50 MG TAB.ER.24H PO SCH (09:04)
[2021-12-26] MEDS: Ipratropium 1 PUFF INHALER IH SCH ×6 (03:13→23:28)
[2021-12-26] MEDS: *HR* Enoxaparin 40 MG/0.4 ML SYRINGE SQ SCH (05:40)
[2021-12-26 05:42] LABS: Basophils % 0.1 %; Eosinophils # 0.1 K/mcL (0.0-0.6); Eosinophils % 0.6 %; Hematocrit 38.8 % (37.5-50.1); Immature Granulocytes % 0.9 % (0-4); Lymphocytes # 0.9 K/mcL (0.6-4.6); Lymphocytes % 10.1 %; Mean Corpuscular HGB Conc 33.5 g/dL (31.6-35.5); Mean Corpuscular Hemoglobin 28.8 pg (28.0-33.3); Mean Platelet Volume 9.9 fL (9.4-12.4); Monocytes # 0.4 K/mcL (0.0-1.3); Neutrophils # 7.2 K/mcL (1.6-8.9); Platelet Count 211 K/mcL (140-400); Red Blood Count 4.51 M/mcL (4.19-5.50); Red Cell Distribution Width 13.9 % (11.5-14.5); Segmented Neutrophils % 83.3 %; White Blood Count 8.7 K/mcL (4.3-11.1)
[2021-12-26 05:55] LABS: Alanine Aminotransferase 30 Units/L (7-52); Albumin 3.4 g/dL (3.5-5.7); Albumin/Globulin Ratio 1.5 (1.1-2.2); Alkaline Phosphatase 47 Units/L (34-104); Aspartate Amino Transferase 23 Units/L (13-39); BUN/Creatinine Ratio 32 (6-26); Bilirubin,Total 0.4 mg/dL (0.3-1.0); Blood Urea Nitrogen 40 mg/dL (8-23); Calcium 8.8 mg/dL (8.6-10.3); Carbon Dioxide 29 mEq/L (23-29); Chloride 100 mEq/L (98-107); Globulin 2.2 g/dL (2.4-3.5); Glucose 85 mg/dL (70-105); Osmolality,Calculated 291 (280-300); Sodium 136 mEq/L (136-145); Total Protein 5.6 g/dL (6.4-8.9); eGFR For African Americans > 60 (> 60); eGFR For Non-African Americans 55 (> 60)
[2021-12-26] MEDS: Insulin LISPRO 300 UNITS/3 ML VIAL SUBQ SCH ×4 (07:37→21:17)
[2021-12-26] MEDS: amLODIPine 5 MG TABLET PO SCH (09:43)
[2021-12-26] MEDS: Furosemide 20 MG TABLET PO SCH ×2 (09:48→21:18)
[2021-12-26] MEDS: Cholecalciferol (D-3) 1,000 UNIT (25MCG) TABLET PO SCH (09:48)
[2021-12-26] MEDS: Metoprolol XL (24 HR) Succ 50 MG TAB.ER.24H PO SCH (09:51)
[2021-12-27] MEDS: Ipratropium 1 PUFF INHALER IH SCH ×6 (03:29→23:21)
[2021-12-27] MEDS: *HR* Enoxaparin 40 MG/0.4 ML SYRINGE SQ SCH (05:47)
[2021-12-27] MEDS: Insulin LISPRO 300 UNITS/3 ML VIAL SUBQ SCH ×4 (05:48→20:00)
[2021-12-27 09:56] LABS: Alanine Aminotransferase 25 Units/L (7-52); Albumin 3.2 g/dL (3.5-5.7); Albumin/Globulin Ratio 1.3 (1.1-2.2); Alkaline Phosphatase 45 Units/L (34-104); Aspartate Amino Transferase 22 Units/L (13-39); BUN/Creatinine Ratio 26 (6-26); Bilirubin,Total 0.5 mg/dL (0.3-1.0); Blood Urea Nitrogen 33 mg/dL (8-23); Calcium 8.4 mg/dL (8.6-10.3); Carbon Dioxide 30 mEq/L (23-29); Chloride 101 mEq/L (98-107); Globulin 2.4 g/dL (2.4-3.5); Glucose 69 mg/dL (70-105); Osmolality,Calculated 292 (280-300); Potassium 3.9 mEq/L (3.5-5.1); Sodium 138 mEq/L (136-145); Total Protein 5.6 g/dL (6.4-8.9); eGFR For African Americans > 60 (> 60); eGFR For Non-African Americans 55 (> 60)
[2021-12-27] MEDS: Furosemide 20 MG TABLET PO SCH ×2 (10:38→19:57)
[2021-12-27] MEDS: Cholecalciferol (D-3) 1,000 UNIT (25MCG) TABLET PO SCH (10:39)
[2021-12-27] MEDS: amLODIPine 5 MG TABLET PO SCH (10:39)
[2021-12-27] MEDS: Metoprolol XL (24 HR) Succ 50 MG TAB.ER.24H PO SCH (10:39)
[2021-12-28] MEDS: Ipratropium 1 PUFF INHALER IH SCH ×6 (03:55→23:56)
[2021-12-28] MEDS: *HR* Enoxaparin 40 MG/0.4 ML SYRINGE SQ SCH (05:10)
[2021-12-28] MEDS: amLODIPine 5 MG TABLET PO SCH (08:31)
[2021-12-28] MEDS: Metoprolol XL (24 HR) Succ 50 MG TAB.ER.24H PO SCH (08:31)
[2021-12-28] MEDS: Cholecalciferol (D-3) 1,000 UNIT (25MCG) TABLET PO SCH (08:31)
[2021-12-28] MEDS: Furosemide 20 MG TABLET PO SCH ×2 (08:32→20:43)
[2021-12-28] MEDS: Insulin LISPRO 300 UNITS/3 ML VIAL SUBQ SCH ×4 (08:32→20:43)
[2021-12-28 10:12] LABS: Basophils % 0.1 %; Eosinophils # 0.2 K/mcL (0.0-0.6); Eosinophils % 2.3 %; Hematocrit 42.7 % (37.5-50.1); Hemoglobin 13.9 g/dL (12.9-16.9); Immature Granulocytes % 0.5 % (0-4); Lymphocytes # 0.8 K/mcL (0.6-4.6); Lymphocytes % 9.3 %; Mean Corpuscular HGB Conc 32.6 g/dL (31.6-35.5); Mean Corpuscular Hemoglobin 28.5 pg (28.0-33.3); Mean Corpuscular Volume 87.7 fL (83.0-100.0); Mean Platelet Volume 9.9 fL (9.4-12.4); Monocytes # 0.4 K/mcL (0.0-1.3); Neutrophils # 6.8 K/mcL (1.6-8.9); Platelet Count 187 K/mcL (140-400); Red Blood Count 4.87 M/mcL (4.19-5.50); Red Cell Distribution Width 14.7 % (11.5-14.5); Segmented Neutrophils % 82.8 %; White Blood Count 8.2 K/mcL (4.3-11.1)
[2021-12-28 10:34] LABS: Alanine Aminotransferase 29 Units/L (7-52); Albumin 3.5 g/dL (3.5-5.7); Albumin/Globulin Ratio 1.4 (1.1-2.2); Alkaline Phosphatase 52 Units/L (34-104); Aspartate Amino Transferase 27 Units/L (13-39); BUN/Creatinine Ratio 25 (6-26); Bilirubin,Total 0.7 mg/dL (0.3-1.0); Blood Urea Nitrogen 35 mg/dL (8-23); Calcium 9.1 mg/dL (8.6-10.3); Carbon Dioxide 32 mEq/L (23-29); Chloride 97 mEq/L (98-107); Globulin 2.5 g/dL (2.4-3.5); Glucose 96 mg/dL (70-105); Osmolality,Calculated 288 (280-300); Potassium 3.6 mEq/L (3.5-5.1); Sodium 135 mEq/L (136-145); eGFR For African Americans > 60 (> 60); eGFR For Non-African Americans 50 (> 60)
[2021-12-29] MEDS: Ipratropium 1 PUFF INHALER IH SCH ×5 (03:21→19:52)
[2021-12-29] MEDS: *HR* Enoxaparin 40 MG/0.4 ML SYRINGE SQ SCH (05:50)
[2021-12-29 06:49] LABS: Basophils % 0.1 %; Eosinophils # 0.1 K/mcL (0.0-0.6); Eosinophils % 2.1 %; Hematocrit 41.3 % (37.5-50.1); Hemoglobin 13.5 g/dL (12.9-16.9); Immature Granulocytes % 0.7 % (0-4); Lymphocytes # 0.5 K/mcL (0.6-4.6); Lymphocytes % 7.9 %; Mean Corpuscular HGB Conc 32.7 g/dL (31.6-35.5); Mean Corpuscular Hemoglobin 28.7 pg (28.0-33.3); Mean Corpuscular Volume 87.7 fL (83.0-100.0); Mean Platelet Volume 9.9 fL (9.4-12.4); Monocytes # 0.4 K/mcL (0.0-1.3); Monocytes % 6.6 %; Neutrophils # 5.5 K/mcL (1.6-8.9); Platelet Count 186 K/mcL (140-400); Red Blood Count 4.71 M/mcL (4.19-5.50); Red Cell Distribution Width 14.8 % (11.5-14.5); Segmented Neutrophils % 82.6 %; White Blood Count 6.7 K/mcL (4.3-11.1)
[2021-12-29 07:04] LABS: BUN/Creatinine Ratio 23 (6-26); Blood Urea Nitrogen 31 mg/dL (8-23); Calcium 8.8 mg/dL (8.6-10.3); Carbon Dioxide 28 mEq/L (23-29); Chloride 99 mEq/L (98-107); Glucose 77 mg/dL (70-105); Osmolality,Calculated 295 (280-300); Potassium 4.2 mEq/L (3.5-5.1); Sodium 140 mEq/L (136-145); eGFR For African Americans > 60 (> 60); eGFR For Non-African Americans 50 (> 60)
[2021-12-29] MEDS: Cholecalciferol (D-3) 1,000 UNIT (25MCG) TABLET PO SCH (09:05)
[2021-12-29] MEDS: amLODIPine 5 MG TABLET PO SCH (09:06)
[2021-12-29] MEDS: Metoprolol XL (24 HR) Succ 50 MG TAB.ER.24H PO SCH (09:06)
[2021-12-29] MEDS: Insulin LISPRO 300 UNITS/3 ML VIAL SUBQ SCH ×4 (09:26→21:20)
[2021-12-29] MEDS: Furosemide 20 MG/2 ML VIAL IVP SCH ×2 (09:27→19:51)
[2021-12-30] MEDS: Ipratropium 1 PUFF INHALER IH SCH ×6 (00:06→20:48)
[2021-12-30 02:13] LABS: Basophils % 0.2 %; Eosinophils # 0.2 K/mcL (0.0-0.6); Eosinophils % 2.5 %; Hematocrit 40.9 % (37.5-50.1); Hemoglobin 13.5 g/dL (12.9-16.9); Immature Granulocytes % 0.5 % (0-4); Lymphocytes # 0.7 K/mcL (0.6-4.6); Lymphocytes % 11.3 %; Mean Corpuscular Hemoglobin 28.8 pg (28.0-33.3); Mean Corpuscular Volume 87.2 fL (83.0-100.0); Mean Platelet Volume 10.1 fL (9.4-12.4); Monocytes # 0.4 K/mcL (0.0-1.3); Monocytes % 6.6 %; Neutrophils # 5.1 K/mcL (1.6-8.9); Platelet Count 179 K/mcL (140-400); Red Blood Count 4.69 M/mcL (4.19-5.50); Segmented Neutrophils % 78.9 %; White Blood Count 6.4 K/mcL (4.3-11.1)
[2021-12-30 02:44] LABS: Calcium 8.7 mg/dL (8.6-10.3); Potassium 3.4 mEq/L (3.5-5.1)
[2021-12-30] MEDS: *HR* Enoxaparin 40 MG/0.4 ML SYRINGE SQ SCH (05:20)
[2021-12-30] MEDS: Metoprolol XL (24 HR) Succ 50 MG TAB.ER.24H PO SCH (08:46)
[2021-12-30] MEDS: amLODIPine 5 MG TABLET PO SCH (08:46)
[2021-12-30] MEDS: Cholecalciferol (D-3) 1,000 UNIT (25MCG) TABLET PO SCH (08:47)
[2021-12-30] MEDS: Furosemide 20 MG/2 ML VIAL IVP SCH ×2 (08:48→20:13)
[2021-12-30] MEDS: Insulin LISPRO 300 UNITS/3 ML VIAL SUBQ SCH ×4 (08:49→20:13)
[2021-12-31] MEDS: Ipratropium 1 PUFF INHALER IH SCH ×4 (00:14→11:15)
[2021-12-31 03:04] LABS: Basophils % 0.2 %; Eosinophils # 0.2 K/mcL (0.0-0.6); Eosinophils % 3.8 %; Hematocrit 39.9 % (37.5-50.1); Hemoglobin 12.7 g/dL (12.9-16.9); Immature Granulocytes % 0.7 % (0-4); Lymphocytes # 0.7 K/mcL (0.6-4.6); Lymphocytes % 13.1 %; Mean Corpuscular HGB Conc 31.8 g/dL (31.6-35.5); Mean Corpuscular Volume 87.9 fL (83.0-100.0); Mean Platelet Volume 9.9 fL (9.4-12.4); Monocytes # 0.4 K/mcL (0.0-1.3); Monocytes % 7.8 %; Neutrophils # 4.1 K/mcL (1.6-8.9); Platelet Count 172 K/mcL (140-400); Red Blood Count 4.54 M/mcL (4.19-5.50); Red Cell Distribution Width 14.6 % (11.5-14.5); Segmented Neutrophils % 74.4 %; White Blood Count 5.5 K/mcL (4.3-11.1)
[2021-12-31 03:22] LABS: Calcium 8.7 mg/dL (8.6-10.3); Potassium 4.1 mEq/L (3.5-5.1)
[2021-12-31] MEDS: *HR* Enoxaparin 40 MG/0.4 ML SYRINGE SQ SCH (05:12)
[2021-12-31] MEDS: Insulin LISPRO 300 UNITS/3 ML VIAL SUBQ SCH ×2 (10:09→12:22)
[2021-12-31] MEDS: amLODIPine 5 MG TABLET PO SCH (10:18)
[2021-12-31] MEDS: Furosemide 20 MG/2 ML VIAL IVP SCH (10:19)
[2021-12-31] MEDS: Cholecalciferol (D-3) 1,000 UNIT (25MCG) TABLET PO SCH (10:21)
[2021-12-31] MEDS: Metoprolol XL (24 HR) Succ 50 MG TAB.ER.24H PO SCH (10:21)
[2021-12-31 11:02] VITALS: BP 95/60; PULSE 85; TEMP 97.9
[2021-12-31 11:17] VITALS: O2SAT 93
== END 2021-12-31 15:52 | DRG 177 ==
LOC: 3NENU → SUATTDRO 12-12 12:56
PROVIDERS: ADMIT Student in an Organized Health Care Education/Training Program; ATTEND Family Medicine